=== PATIENT | male | born 1950 | race Caucasian/White ===

== ENCOUNTER 2017-12-19 10:05 | Outpatient (CLI) | payer MEDICARE, MEDICAID, SELFPAY ==
--- NOTE | 2017-12-19 09:45 | DI.RAD_ITS ---
SYMPTOMS/DIAGNOSIS: PAIN IN KNEE, M25.569 RIGHT KNEE: Three views were obtained. There are prominent osteophytes of the superior pole of the patella and the anterior tibial tubercle. Minimal hypertrophic spurring seen involving the patellofemoral joint as well. No other significant bony abnormality is seen.
[2017-12-19 11:16] LABS: HCT 43.1 % (40.0-50.0); HGB 14.5 g/dL (13.5-17.5); Mean Corp. HGB Concentration 33.6 g/dL (32.0-36.0); Mean Corpuscular Volume 95.1 fL (80-95); Mean Platelet Volume 10.2 fL (8.0-11.0); Platelet Count 231 x1000/uL (130-400); RBC 4.53 m/cumm (4.50-6.00); RBC Distribution Width 13.7 % (11.8-14.1); White Blood Cell Count 8.66 k/cumm (4.4-10.8)
[2017-12-19 12:29] LABS: ALT 42 U/L (12-78); AST 24 U/L (15-37); Albumin 4.1 g/dL (3.4-5.0); Alkaline Phosphatase 65 U/L (46-116); Anion Gap 10.3 mmol/L (3-11); BUN 28 mg/dL (7-18); Bilirubin, Total 0.5 mg/dL (0.2-1.0); CO2 26.7 mmol/L (21.0-32.0); CREATININE 1.16 mg/dL (0.70-1.30); Chloride 104 mmol/L (98-107); Glucose 84 mg/dL (70-100); Potassium 4.2 mmol/L (3.5-5.1); Sodium 141 mmol/L (136-145); Total Protein 6.9 g/dL (6.4-8.2); Uric Acid 9.2 mg/dL (3.5-7.2)
[2017-12-19 13:20] LABS: ESR 22 MM/HR (1-20)
== END 2017-12-19 10:25 ==
PROVIDERS: PCP Family Medicine; Visit Provider Internal Medicine
DX: M25.561 Pain in right knee (principal); M25.761 Osteophyte, right knee
CPT/HCPCS: 36415; 73562; 80053; 85027; 85652; 84550

== ENCOUNTER 2017-12-27 17:25 | Emergency (ER) | payer MEDICARE, MEDICAID, SELFPAY ==
[2017-12-27 18:22] VITALS: BP 178/98; PULSE 88; RESP 18; TEMP 36.7; O2SAT 95
--- NOTE | 2017-12-27 18:35 | NUR.NOTE ---
Nursing Note: Patient left without being seen.
== END 2017-12-27 18:37 ==
LOC: ER 18:41
PROVIDERS: PCP Family Medicine
DX: R69 Illness, unspecified (principal)

== ENCOUNTER → 2018-01-09 08:54 | Outpatient (BNVA) | payer MEDICARE, MEDICAID, SELFPAY | PROVIDERS: PCP Family Medicine; Referring Provider Family Medicine; Visit Provider Student in an Organized Health Care Education/Training Program | DX: S83.241A Other tear of medial meniscus, current injury, right knee, initial encounter (principal); X58.XXXA Exposure to other specified factors, initial encounter | CPT/HCPCS: 20610; 99204; 99214; J1040 ==

== ENCOUNTER → 2018-02-20 08:25 | Outpatient (BNVA) | payer MEDICARE, MEDICAID, SELFPAY | PROVIDERS: PCP Family Medicine; Referring Provider Family Medicine; Visit Provider Student in an Organized Health Care Education/Training Program | DX: M23.91 Unspecified internal derangement of right knee | CPT/HCPCS: 99212; 99213 ==

== ENCOUNTER 2018-02-21 09:16 | Outpatient (CLI) | payer MEDICARE, MEDICAID, SELFPAY ==
[2018-02-24 09:45] LABS: Testosterone, Free 4.51 ng/dL (3.47-13.0); Testosterone, Total 167 ng/dL (240-950)
== END 2018-02-21 09:36 ==
PROVIDERS: PCP Family Medicine; Visit Provider Family Medicine
DX: N52.9 Male erectile dysfunction, unspecified (principal)
CPT/HCPCS: 36415; 84402; 84403

== ENCOUNTER 2018-02-23 01:30 | Outpatient (CLI) | payer MEDICARE, MEDICAID, SELFPAY ==
--- NOTE | 2018-02-23 09:42 | DI.MRI_ITS ---
SYMPTOM/DIAGNOSIS: RT KNEE PAIN, ? MENISCUS, INTERNAL DERANGEMENT, M23.91 RIGHT KNEE MRI: Comparison is made with plain films dated 12/19/17. Fat suppressed T 2 axial, proton density and fat suppressed T 2 coronal and sagittal and proton density oblique sagittal sequences were performed. There is a small to moderate sized joint effusion. There is a small amount of fluid around the anterior cruciate ligament but no evidence of disruption. The medial collateral ligament is surrounded by fluid. There is no focal tear visible. The lateral collateral ligaments and extensor mechanism appear intact. There is a large area of high signal in the medial femoral condyle consistent with a bone contusion. There is a small trabecular microfracture seen at the medial femoral condyle at the weight bearing region near the meniscus. There is a large amount of high signal in the medial meniscus. Tears are seen in the posterior horn and body, mainly horizontal and inferior surfacing. There is a linear area of high signal in the anterior horn of the lateral meniscus. The posterior horn and body of the lateral meniscus appear intact. There is cartilage thinning over the femoral condyles as well as minimal irregularity at patellar cartilage. IMPRESSION: Contusion of the medial femoral condyle with small area of trabecular microfracture. Tear of the posterior horn and body of the medial meniscus. Medial meniscal sprain and question of mild ACL sprain.
== END 2018-02-23 01:50 ==
PROVIDERS: PCP Family Medicine; Visit Provider Physician Assistant
DX: M25.561 Pain in right knee (principal); S80.11XA Contusion of right lower leg, initial encounter; S83.241A Other tear of medial meniscus, current injury, right knee, initial encounter
CPT/HCPCS: 73721

== ENCOUNTER → 2018-03-29 07:59 | Outpatient (BNVA) | payer MEDICARE, MEDICAID, SELFPAY | PROVIDERS: PCP Family Medicine; Referring Provider Family Medicine; Visit Provider Student in an Organized Health Care Education/Training Program | DX: S83.241A Other tear of medial meniscus, current injury, right knee, initial encounter (principal); X58.XXXA Exposure to other specified factors, initial encounter | CPT/HCPCS: 99213 ==

== ENCOUNTER 2018-04-06 11:37 | Day surgery (SDC) | payer MEDICARE, MEDICAID, SELFPAY ==
[2018-04-06 12:03] VITALS: BP 134/89; PULSE 78; RESP 18; TEMP 36.1; O2SAT 95
--- NOTE | 2018-04-06 13:28 | HOME_ITS ---
Home Ventilator Equipment Home care company [facility] Reason: Obstructive Sleep Apnea Make: Respironics Model: Dreamstation Mask type: Face mask Mask size: Medium Mode: CPAP Settings: Max/min 20/15 Oxygen bleed in (lpm): 0 Condition: Fair Date last checked: 04/06/18 Year of last sleep study: Compliance Daily Comments:
[2018-04-06] MEDS: Lactated Ringers 1,000 ML 80 ML IV ×2 (13:35→15:18)
[2018-04-06] MEDS: Bupivacaine 0.5% Pres-Free 30 ML VIAL (15:13)
--- NOTE | 2018-04-06 15:22 | W.PM.DSUDISC ---
Discharge Plan Disposition Patient Disposition: HOME Condition: Good Discharge Details Reason For Visit: R knee arthroscopy Attending Provider: Troy Olmos Primary Care Provider: Nigel Emerson Home Meds and New Rx's Prescriptions: New ibuprofen 600 mg tablet 600 mg PO TID PRNQty: 90 RF: 3 acetaminophen 500 mg capsule 1,000 mg PO Q8H PRN (Reason: pain) Qty: 90 RF: 0 oxycodone 5 mg tablet 5 mg PO Q4H Qty: 12 RF: 0 Continued Symbicort 80-4.5 mcg/actuation HFA aerosol inhaler 2 puff Inhalation BID Qty: 120 RF: 11 tamsulosin 0.4 mg capsule 0.4 mg PO HS Qty: 90 RF: 4 C-PAP RF: 0 aspirin 81 MG tablet,chewable 81 mg PO DAILY RF: 0 Inhaler, Assist Devices [Aerochamber Mini] 1 EACH spacer 1 ea Miscellaneous DAILY Qty: 1 RF: 0 fluticasone 16 GM spray,suspension 2 spry NS DAILY Qty: 16 RF: 2 epinephrine [EpiPen 2-Rahul] 0.3 MG/0.3 ML auto-injector 0.3 mg IJ PRN Qty: 1 RF: 0 hydrochlorothiazide 25 MG tablet 50 mg PO DAILY Qty: 90 RF: 3 allopurinol 100 mg Tablet 100 mg PO TID RF: 0 Discontinued naproxen sodium [Aleve] 220 MG capsule 220 mg PO BID RF: 0 tramadol 50 mg tablet 50 mg PO Q8H PRN (Reason: pain) Qty: 42 RF: 0 Discharge Instructions Stand Alone Forms: Sandy MELLO), [facility] Knee Arthrosc[facility] Referrals: Troy Olmos MD [ [facility] STAFF PHYSICIAN] - Equipment/Supplies: Partial Weight Bearing Crutches Activity:: Elevate Remove Dressings/Wound Care:: 72 hours Shower/Bathe:: 72 hours Diet:: As Tolerated Discharge Orders Discharge Orders: Discharge Order (Routine); Ordered 04/06/18 Ordered By: Troy Olmos DS: Diagnosis Discharge Diagnosis (1) Acute medial meniscus tear of right knee: Status: Acute
[2018-04-06 15:32] VITALS: BP 158/85; PULSE 75; RESP 16; TEMP 36.4; O2SAT 96
[2018-04-06 15:37] VITALS: BP 166/89; PULSE 69; RESP 17; TEMP 36.4; O2SAT 96
[2018-04-06 15:42] VITALS: BP 138/86; PULSE 73; RESP 14; TEMP 36.4; O2SAT 95
[2018-04-06] MEDS: fentaNYL 100 MCG/2 ML VIAL IVP ×2 (15:52→15:58)
[2018-04-06 15:55] VITALS: BP 161/93; PULSE 70; RESP 14; TEMP 36.6; O2SAT 94
[2018-04-06] MEDS: oxyCODONE 5 MG TAB PO (16:31)
[2018-04-06 17:00] VITALS: BP 134/89; PULSE 71; RESP 20; TEMP 36.1; O2SAT 91
--- NOTE | 2018-04-07 05:59 | W.PM.OP ---
Date of service: 04/06/18 Time of Service: 16:59 Operative Note DATE OF PROCEDURE: 04/06/18 PRE-OP DIAGNOSIS: Right medial meniscal tear POST-OP DIAGNOSIS: other (Right medial and lateral meniscal tears) PROCEDURE: Right knee arthroscopic partial medial meniscectomy, partial lateral meniscectomy SURGEON: Troy Olmos ANESTHESIA: GETA ESTIMATED BLOOD LOSS: 0 PATHOLOGY: none sent COMPLICATIONS: None Patient was transported to: PACU Patient's condition: stable Indications: I have seen Lester in clinic for symptoms of a meniscus tear. This was confirmed based on MRI and exam findings. Nonoperative measures were exhausted but disability and pain persisted. I discussed knee arthroscopy with meniscal intervention with the patient. I reviewed the risks of the procedure to include, but not limited to, bleeding, infection, pain, stiffness, damage to nerves or vessels, recurrence, blood clot. Despite these risks, the patient elected to proceed. 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 The consent was reviewed with the patient and signed. The history and physical was updated. All questions were answered. Lester was taken back to the operating room. The patient was placed into the supine position on the operating room table. A nonsterile tourniquet was placed high onto the leg but not used. All bony prominences were well padded. Prophylactic antibiotics in the form of cefazolin were administered. The right leg was then prepped with Chloraprep and draped in a standard fashion with stockinette and extremity drape. A timeout to confirm correct identity, side and site, procedure, allergies, anesthesia, and medical concerns was performed. The leg was placed into a pneumatic leg suarez, [email or web address]. A standard lateral portal was made at the lateral border of the patella tendon in line with the inferior pole of the patella, soft spot. The skin and deep tissue was incised sharply and the blunt trochar was inserted atraumatically. A diagnostic arthroscopy was performed and the findings are listed above. The suprapatellar pouch had significant inflammatory changes. There were also deposits seen throughout the knee that had the appearance of a crystal arthropathy. Given his history of gout this is likely gouty deposition, although could be related to intra-articular steroid injection. The patellofemoral articulation showed some grade 2 chondromalacia at the apex as well as good tracking. The lateral gutter had some fibers of the superficial and superior aspect of the meniscus displaced laterally and the medial gutter had no loose bodies. The knee was brought into some valgus stress in extension to open the medial compartment. A medial portal was made, localized by a spinal needle. The portal was created with an #11 blade through skin and capsule under direct visualization avoiding any meniscal injury. A probe was then inserted into the medial compartment. The medial compartment was fully inspected. The chondral surface of the tibia showed a few areas of fissuring but no global chondromalacia and the surface of the femur showed the same. The medial meniscus had a complex tear the posterior horn with a primary radial component as well as a horizontal tear. After evaluation, the meniscus was debrided down to a stable base using a series of biters and arthroscopic yusef. It was probed afterwards to confirm that the tear had been removed and the meniscus was stable. The notch was then inspected which showed an intact ACL and an intact PCL. The leg was then brought into a figure of 4 position. The lateral compartment was fully inspected with the arthroscope and a probe. The chondral surface of the lateral femur showed small area of fissuring but no global arthritic change. The chondral surface of the lateral tibia showed some fissuring but no significant chondromalacia. The lateral meniscus had a complex tear involving the superior fibers of the meniscus in the body. These fibers were frayed and displaced but there is no true horizontal and radial component or detachment from the capsule. After evaluation, the meniscus was debrided down to a stable base using a series of biters and arthroscopic yusef. It was probed afterwards to confirm that the tear had been removed and the meniscus was stable. The arthroscope was brought back into the suprapatellar pouch and the leg was in full extension. The knee was thoroughly irrigated with the arthroscopic fluid on high flow and pressure. Inflow was stopped and excess fluid was removed. The wounds were closed with 4-0 Nylon. They were dressed with Xeroform, 4x4 gauze, ABD pad, Kerlix and an SARAH wrap. A cryo-cuff was applied. The patient tolerated the procedure well and was returned to the Same Day Surgery area in a stable condition suffering no known complication.
== END 2018-04-06 17:10 | disposition home or self-care (01) ==
PROVIDERS: PCP Family Medicine; Visit Provider Student in an Organized Health Care Education/Training Program
PROC: (CPT 29870; principal; 2018-04-06 14:15)
DX: S83.231A Complex tear of medial meniscus, current injury, right knee, initial encounter (principal); S83.271A Complex tear of lateral meniscus, current injury, right knee, initial encounter; M22.41 Chondromalacia patellae, right knee; M11.9 Crystal arthropathy, unspecified; M10.9 Gout, unspecified; X58.XXXA Exposure to other specified factors, initial encounter
CPT/HCPCS: 29880; J0690; J1100; J1885; J2405; J3010

== ENCOUNTER → 2018-04-17 13:15 | Outpatient (BNVA) | payer MEDICARE, MEDICAID, SELFPAY | PROVIDERS: PCP Family Medicine; Referring Provider Family Medicine; Visit Provider Student in an Organized Health Care Education/Training Program | DX: S83.241D Other tear of medial meniscus, current injury, right knee, subsequent encounter (principal); S83.281D Other tear of lateral meniscus, current injury, right knee, subsequent encounter; X58.XXXD Exposure to other specified factors, subsequent encounter ==

== ENCOUNTER → 2018-05-15 09:13 | Outpatient (BNVA) | payer MEDICARE, MEDICAID, SELFPAY | PROVIDERS: PCP Family Medicine; Referring Provider Family Medicine; Visit Provider Student in an Organized Health Care Education/Training Program | DX: S83.281D Other tear of lateral meniscus, current injury, right knee, subsequent encounter (principal); S83.241D Other tear of medial meniscus, current injury, right knee, subsequent encounter; M23.91 Unspecified internal derangement of right knee; X58.XXXD Exposure to other specified factors, subsequent encounter | CPT/HCPCS: 20610; J1040 ==

== ENCOUNTER 2018-06-02 09:25 | Day surgery (SDC) | payer MEDICARE, MEDICAID, SELFPAY ==
[2018-06-02] VITALS (7 sets, daily range): BP systolic 98–145; BP diastolic 51–78; PULSE 65–98; RESP 14–20; TEMP 35.9–36.8; O2SAT 93–95
--- NOTE | 2018-06-02 07:41 | HPE_ITS ---
Date of service: 06/02/18 Time of Service: 10:34 Assessment and Plan (1) Acute medial meniscus tear of right knee: Current visit: No Status: Acute Lester is a 68-year-old 2 months out from right knee arthroscopy with no improvement with the sharp mechanical pain of his right knee. He did have a complex tear of the medial meniscus with multiple components of multiple loose pieces. My concern is that he either re-tore through remnant tear of the medial meniscus or there was tearing not appreciated and inevitably not resected. The ache of his knee has improved with injections and time but the sharp pain re- created by twisting, turning, or walking on uneven grounds, persists. This mechanical nature would suggest the meniscus is still torn and therefore I offered revision knee arthroscopic partial medial meniscectomy. He does not have any lateral based symptoms. I reviewed the risk of the procedure to include persistent pain and symptoms, infection, bleeding, swelling, damage to nerves and vessels, need for repeat procedures, worsening arthritis, blood clot. Despite these risk, he elects to proceed. Qualifiers: Encounter type: initial encounter Qualified Code(s): S83.241A - Other tear of medial meniscus, current injury, right knee, initial encounter History of Present Illness Chief Complaint: Persistent right knee pain Narrative: Lester is a 68-year-old who I have seen for persistent right knee pain. He tried conservative treatment options and then eventually underwent a right knee arthroscopy in March 2018. At the time of arthroscopy he had a significant, complex tear of the medial meniscus with both radial and horizontal components. He also had a very degenerative appearing central lateral meniscal tear. Since the time of the surgery he has had some very mild pain relief but continues have a sensation like something is getting stuck or caught in the knee leading to significant sharp pain over the medial aspect of the knee. This happens when he standing but is exacerbated with any turning or twisting or ambulation on uneven ground or surfaces. He has had a corticosteroid injection which helped decrease some of the ache of the knee but did not alleviate the pain which is sharp. No numbness or tingling no fevers or chills. No range of motion restrictions. Review of Systems Review of Systems All systems reviewed & are unremarkable except as noted in HPI and below PFSH Medical History Screening for colorectal cancer (Chronic) Benign prostatic hyperplasia (Chronic) Disorder of diaphragm (Acute) Essential hypertension (Acute) Gastroesophageal reflux disease (Acute) Hearing loss (Acute) Hyperlipidemia (Acute 07/10/12) Increased body mass index (Acute) Lactose intolerance (Chronic) Malignant melanoma of skin of lower limb (Acute 05/23/13) Obstructive sleep apnea (adult) (pediatric) (Acute) Onychomycosis (Acute) Peyronie's disease (Acute) Low testosterone (Chronic) Hypertension (Chronic) Surgical History Status post arthroscopy of right knee (Chronic) H/O shoulder surgery (Chronic) Hx of meniscectomy of right knee (Acute ~04/06/18) History of hernia repair (Chronic) COLONOSCOPY W/MAC (01/24/15) Colonoscopy - MAC (04/15/04) EGD - MAC (04/15/04) Rotator Cuff Repair (~2005) Family History Mother Arthritis Father Alzheimer disease Sister No problems noted. Sister No problems noted. Brother No problems noted. Brother No problems noted. Grandfather No problems noted. Grandfather No problems noted. Grandmother No problems noted. Grandmother No problems noted. Son No problems noted. Daughter Epilepsy Social History Smoking/Tobacco Use Status: Former Tobacco Use Drug use: Never Do you feel safe in your relationship?: Yes Meds Home Medications Medication Instructions Recorded Confirmed Type C-Pap 07/31/12 05/24/18 History aspirin 81 mg PO DAILY tab-cap 01/20/16 06/01/18 History Inhaler, Assist Devices #1 unit 02/02/17 05/24/18 Clinic [Aerochamber Mini] fluticasone propionate 2 spry NS DAILY #16 gm 03/16/17 05/24/18 Rx epinephrine [EpiPen 2-Rahul] 0.3 mg IJ PRN #1 ml 08/24/17 06/01/18 Rx budesonide-formoterol HFA 80 2 puff INHALATION BID #120 inh 02/21/18 06/01/18 Rx mcg-4.5 mcg/actuation aerosol inhaler acetaminophen 1,000 mg PO Q8H PRN #90 cap 04/06/18 05/24/18 Rx allopurinol 100 mg PO TID 04/06/18 06/01/18 History ibuprofen 600 mg PO TID PRN #90 tab 04/06/18 06/01/18 Rx tramadol 50 mg tablet 50 mg PO Q6H PRN #14 tab 04/17/18 06/01/18 Rx hydrochlorothiazide 25 mg tablet 50 mg PO DAILY #180 tab-cap 05/08/18 06/01/18 Rx syringe with needle 3 mL 22 gauge #6 each 05/24/18 05/24/18 Rx x 1 tamsulosin 0.4 mg capsule 0.8 mg PO HS #180 tab-cap 05/24/18 06/02/18 Rx testosterone cypionate 200 mg/mL 100 mg IM Q2W #1 ml 05/25/18 06/02/18 Rx intramuscular oil naproxen sodium [Aleve] 220 mg PO BID 06/01/18 06/02/18 History Allergies Allergy/AdvReac Type Severity Reaction Status Date / Time SARAH Inhibitors Allergy Unknown Unverified 06/02/18 09:57 amlodipine AdvReac Swelling/Ed Unverified 06/02/18 09:57 robles ezetimibe AdvReac myalgias Unverified 06/02/18 09:57 hydrocodone AdvReac Hallucinati Unverified 06/02/18 09:57 ons lisinopril AdvReac cough Unverified 06/02/18 09:57 losartan AdvReac fatigue Unverified 06/02/18 09:57 oxycodone AdvReac Depression Unverified 06/02/18 09:57 clams SOB ER Allergy Severe SOB ER Uncoded 06/02/18 09:57 red yeast rice AdvReac Intermediate Uncoded 06/02/18 09:57 Exam Const General: cooperative, healthy appearing, comfortable and no acute distress Nutritional Appearance: obese Orientation: alert, awake and oriented x3 Resp Effort & Inspection: normal respiratory effort Auscultation: clear to auscultation bilaterally Cardio Rate: regular rate Rhythm: regular rhythm Extrem Other: Well-healed arthroscopy portal seen on the right knee. The right knee shows no sign of significant effusion. No erythema. Range of motion is from 5- 110 degrees. Force of the knee deeper into flexion causes medial base pain. Significant pain with Teo and Apley maneuvers. Pain along the medial joint line.
[2018-06-02] MEDS: Lactated Ringers 1,000 ML 80 ML IV (10:10)
[2018-06-02] MEDS: Bupivacaine 0.5% Pres-Free 30 ML VIAL (10:54)
--- NOTE | 2018-06-02 11:23 | PDOC.DSDIS_ITS ---
Discharge Plan Disposition Patient Disposition: HOME Condition: Good Discharge Details Reason For Visit: (R) KNEE MMT Attending Provider: Troy Olmos Primary Care Provider: Nigel Emerson Home Meds and New Rx's Prescriptions: New tramadol 50 mg tablet 50 mg PO Q4H PRN (Reason: pain) Qty: 18 RF: 0 acetaminophen 500 mg tablet 1,000 mg PO Q8H PRN (Reason: pain) Qty: 90 RF: 3 Continued Symbicort 80-4.5 mcg/actuation HFA aerosol inhaler 2 puff Inhalation BID Qty: 120 RF: 11 tamsulosin 0.4 mg capsule 0.8 mg PO HS Qty: 180 RF: 4 syringe with needle 3 mL 22 gauge x 1 syringe .ROUTE .MEDSUPPLY Qty: 6 RF: 3 C-PAP RF: 0 aspirin 81 MG tablet,chewable 81 mg PO DAILY RF: 0 Inhaler, Assist Devices [Aerochamber Mini] 1 EACH spacer 1 ea Miscellaneous DAILY Qty: 1 RF: 0 fluticasone propionate 16 GM spray,suspension 2 spry NS DAILY Qty: 16 RF: 2 epinephrine [EpiPen 2-Rahul] 0.3 MG/0.3 ML auto-injector 0.3 mg IJ PRN Qty: 1 RF: 0 hydrochlorothiazide 25 mg tablet 50 mg PO DAILY Qty: 180 RF: 3 testosterone cypionate [Depo-Testosterone] 200 mg/mL oil 100 mg IM Q2W Qty: 1 RF: 5 allopurinol 100 mg Tablet 100 mg PO TID RF: 0 ibuprofen 600 mg tablet 600 mg PO TID PRNQty: 90 RF: 3 Changed tramadol 50 mg tablet 50 mg PO Q4H PRN PRN (Reason: pain) Qty: 18 RF: 0 Discontinued acetaminophen 500 mg capsule 1,000 mg PO Q8H PRN (Reason: pain) Qty: 90 RF: 0 naproxen sodium [Aleve] 220 mg Capsule 220 mg PO BID RF: 0 No Action indomethacin 50 mg Capsule 50 mg PO PRN PRNRF: 0 Discharge Instructions Stand Alone Forms: [facility] Knee Arthroscopy, Sandy Choudhury (DSU) Referrals: Troy Olmos MD [ [facility] STAFF PHYSICIAN] - Equipment/Supplies: Partial Weight Bearing Crutches Activity:: Activity as Tolerated Remove Dressings/Wound Care:: 72 hours Shower/Bathe:: 72 hours Diet:: As Tolerated Discharge Orders Discharge Orders: Discharge Order (Routine); Ordered 06/02/18 Ordered By: Troy Olmos DS: Diagnosis Discharge Diagnosis (1) Acute medial meniscus tear of right knee: Status: Acute
[2018-06-02] MEDS: fentaNYL 100 MCG/2 ML VIAL IVP ×2 (11:49→12:05)
[2018-06-02] MEDS: oxyCODONE 5 MG TAB PO (12:52)
--- NOTE | 2018-06-02 14:52 | W.PM.OP ---
Date of service: 06/02/18 Time of Service: 14:52 Operative Note DATE OF PROCEDURE: 06/02/18 PRE-OP DIAGNOSIS: Right knee medial meniscal tear POST-OP DIAGNOSIS: same PROCEDURE: Arthroscopic right knee partial medial meniscectomy SURGEON: Troy Olmos ANESTHESIA: GETA ESTIMATED BLOOD LOSS: 0 PATHOLOGY: none sent COMPLICATIONS: None Patient was transported to: PACU Patient's condition: stable Indications: I have seen Lester in clinic for symptoms of a meniscus tear. This was confirmed based on MRI and exam findings. He had initial meniscal surgery where a complex tear of the medial meniscus was discovered and treated. However, a few weeks after the initial surgery he developed exquisite medial sided pain with any turning, twisting, or uneven ground. Nonoperative measures were exhausted but disability and pain persisted. I discussed knee arthroscopy with revision meniscal intervention with the patient. I reviewed the risks of the procedure to include, but not limited to, bleeding, infection, pain, stiffness, damage to nerves or vessels, recurrence, blood clot. Despite these risks, the patient elected to proceed. 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 The consent was reviewed with the patient and signed. The history and physical was updated. All questions were answered. He was taken back to the operating room. The patient was placed into the supine position on the operating room table. A nonsterile tourniquet was placed high onto the leg but not used. All bony prominences were well padded. Prophylactic antibiotics in the form of cefazolin were administered. The right leg was then prepped with Chloraprep and draped in a standard fashion with stockinette and extremity drape. A timeout to confirm correct identity, side and site, procedure, allergies, anesthesia, and medical concerns was performed. The leg was placed into a pneumatic leg suarez, [email or web address]. A standard lateral portal was made at the lateral border of the patella tendon in line with the inferior pole of the patella, soft spot. The skin and deep tissue was incised sharply and the blunt trochar was inserted atraumatically. A diagnostic arthroscopy was performed and the findings are listed above. The suprapatellar pouch had mild inflammatory changes with a single cartilage loose body about 4 x 6 mm. The patellofemoral articulation showed grade I/II chondromalacia of the patella as well as good tracking. The lateral gutter had no loose bodies and the medial gutter had no loose bodies. The knee was brought into some valgus stress in extension to open the medial compartment. A medial portal was made, localized by a spinal needle. The portal was created with an #11 blade through skin and capsule under direct visualization avoiding any meniscal injury. A probe was then inserted into the medial compartment. The medial compartment was fully inspected. The chondral surface of the tibia showed some fissuring with focal grade II chondromalacia and the surface of the femur showed focal grade IV chondromalacia with exposed bone, approximately 6 x 8 mm. The medial meniscus had post meniscectomy changes with a large portion of meniscus absent where the previous radial and oblique tear was resected. The medial meniscus was probed and there was some residual horizontal tearing appreciated from the site of the oblique tear towards the root but not involving the root. After evaluation, the meniscus was debrided down to a stable base using a series of biters and arthroscopic yusef. It was probed afterwards to confirm that the tear had been removed and the meniscus was stable. Cartilage surfaces were debrided of any flaps, leaving any intact fibers. The notch was then inspected which showed an intact ACL and an intact PCL. The leg was then brought into a figure of 4 position. The lateral compartment was fully inspected with the arthroscope and a probe. The chondral surface of the lateral femur showed some mild fissuring but no significant chondromalacia. The chondral surface of the lateral tibia showed no significant chondromalacia. The lateral meniscus had no meniscal tear. The arthroscope was brought back into the suprapatellar pouch and the leg was in full extension. The knee was thoroughly irrigated with the arthroscopic fluid on high flow and pressure. Inflow was stopped and excess fluid was removed. The wounds were closed with 4-0 Nylon. They were dressed with Xeroform, 4x4 gauze, ABD pad, Kerlix and an SARAH wrap. A cryo-cuff was applied. The patient tolerated the procedure well and was returned to the Same Day Surgery area in a stable condition suffering no known complication.
== END 2018-06-02 13:32 | disposition home or self-care (01) ==
PROVIDERS: PCP Family Medicine; Visit Provider Student in an Organized Health Care Education/Training Program
PROC: (CPT 29870; principal; 2018-06-02 10:45)
DX: S83.241A Other tear of medial meniscus, current injury, right knee, initial encounter (principal); M23.41 Loose body in knee, right knee; M94.261 Chondromalacia, right knee; I10 Essential (primary) hypertension; K21.9 Gastro-esophageal reflux disease without esophagitis; X58.XXXA Exposure to other specified factors, initial encounter
CPT/HCPCS: 29881; NC; J0690; J1885; J2405; J3010

== ENCOUNTER → 2018-06-14 09:14 | Outpatient (BNVA) | payer MEDICARE, SELFPAY | PROVIDERS: PCP Family Medicine; Referring Provider Family Medicine; Visit Provider Student in an Organized Health Care Education/Training Program | DX: Z47.89 Encounter for other orthopedic aftercare (principal); M17.11 Unilateral primary osteoarthritis, right knee ==

== ENCOUNTER → 2018-07-12 09:15 | Outpatient (BNVA) | payer MEDICARE, SELFPAY | PROVIDERS: PCP Family Medicine; Referring Provider Family Medicine; Visit Provider Student in an Organized Health Care Education/Training Program | DX: Z47.89 Encounter for other orthopedic aftercare (principal); M25.561 Pain in right knee ==

== ENCOUNTER 2018-08-29 10:01 | Outpatient (CLI) | payer MEDICARE, SELFPAY ==
[2018-08-29 13:16] LABS: Calculated LDL 134; Cholesterol 190 mg/dL (50-200); HDL Cholesterol 17 mg/dL (40-60); Triglyceride 198 mg/dL (30-150)
[2018-09-01 09:10] LABS: Testosterone, Free 9.04 ng/dL (3.47-13.0); Testosterone, Total 323 ng/dL (240-950)
== END 2018-08-29 10:21 ==
PROVIDERS: PCP Family Medicine; Visit Provider Family Medicine
DX: R79.89 Other specified abnormal findings of blood chemistry (principal); I10 Essential (primary) hypertension; N52.9 Male erectile dysfunction, unspecified
CPT/HCPCS: 36415; 80061; 83721; 84402; 84403

== ENCOUNTER → 2018-09-18 10:41 | Outpatient (BNVA) | payer MEDICARE, MEDICAID, SELFPAY | PROVIDERS: PCP Family Medicine; Referring Provider Family Medicine; Visit Provider Student in an Organized Health Care Education/Training Program | DX: M17.11 Unilateral primary osteoarthritis, right knee (principal); M25.561 Pain in right knee; Z47.89 Encounter for other orthopedic aftercare; I10 Essential (primary) hypertension | CPT/HCPCS: 20610; 99213; J7325 ==

== ENCOUNTER → 2019-02-08 12:42 | Outpatient (BNVA) | payer MEDICARE, MEDICAID, SELFPAY | PROVIDERS: PCP Family Medicine; Referring Provider Family Medicine; Visit Provider Student in an Organized Health Care Education/Training Program | DX: M17.11 Unilateral primary osteoarthritis, right knee (principal); I10 Essential (primary) hypertension | CPT/HCPCS: 99213 ==

== ENCOUNTER 2019-02-20 14:04 | Outpatient (CLI) | payer MEDICARE, MEDICAID, SELFPAY ==
[2019-02-20 15:23] LABS: HCT 49.5 % (40.0-50.0); HGB 16.6 g/dL (13.5-17.5); Mean Corp. HGB Concentration 33.5 g/dL (32.0-36.0); Mean Corpuscular Hemoglobin 30.9 pg (27.0-33.0); Mean Platelet Volume 9.7 fL (8.0-11.0); RBC 5.38 m/cumm (4.50-6.00); RBC Distribution Width 14.1 % (11.8-14.1); White Blood Cell Count 8.07 k/cumm (4.4-10.8)
[2019-02-20 16:37] LABS: CREATININE 1.31 mg/dL (0.70-1.30); Calcium 8.7 mg/dL (8.5-10.1); Estimated GFR 54.74 (mL/min/1.73m2); Potassium 3.9 mmol/L (3.5-5.1)
== END 2019-02-20 14:24 ==
PROVIDERS: PCP Family Medicine; Visit Provider Student in an Organized Health Care Education/Training Program
DX: M25.561 Pain in right knee (principal); M17.11 Unilateral primary osteoarthritis, right knee; Z01.818 Encounter for other preprocedural examination; Z01.812 Encounter for preprocedural laboratory examination
CPT/HCPCS: 36415; 80048; 85027

== ENCOUNTER 2019-02-27 09:03 | Inpatient (IN) | payer MEDICARE, MEDICAID, SELFPAY ==
[2019-02-27] VITALS (14 sets, daily range): BP systolic 145–201; BP diastolic 64–94; PULSE 74–90; RESP 14–26; TEMP 36.7–37.3; O2SAT 93–95
--- NOTE | 2019-02-27 10:14 | HOME_ITS ---
Home Ventilator Equipment Home care company [facility] Reason: Obstructive Sleep Apnea Make: ResMed Model: Dreamstation Mask type: Nasal pillows Mask size: Medium Mode: CPAP Settings: MIN 16.5/ MAX 21 Oxygen bleed in (lpm): 0 Condition: Good Date last checked: 02/27/19 Year of last sleep study: Compliance Daily Comments: DOES NOT USE WATER.
[2019-02-27] MEDS: Celecoxib 200 MG CAP 400 MG PO (10:16)
[2019-02-27] MEDS: Acetaminophen 500 MG TAB 1000 MG PO ×2 (10:16→19:53)
[2019-02-27] MEDS: Gabapentin 300 MG CAP PO ×2 (10:16→21:05)
[2019-02-27] MEDS: Lactated Ringers 1,000 ML 80 ML IV ×2 (10:25→15:37)
[2019-02-27] MEDS: Bupivacaine 0.5% Pres-Free 30 ML VIAL (11:17)
[2019-02-27] MEDS: ceFAZolin 3,000 MG in Normal Saline 100 ML 200 MG IVPB (11:42)
[2019-02-27] MEDS: Bupivacaine 0.25% Pres-Free 30 ML VIAL (12:57)
[2019-02-27] MEDS: Ketorolac 30 MG/ML VIAL (12:57)
[2019-02-27] MEDS: Normal Saline 50 ML 40 ML (12:57)
[2019-02-27] MEDS: Lidocaine 2% Jelly 6 ML SYR (14:25)
[2019-02-27] MEDS: Normal Saline Flush 10 ML SYR IV (14:48)
[2019-02-27] MEDS: Labetalol 100 MG/20 ML VIAL 10 MG IVP (14:50)
--- NOTE | 2019-02-27 16:24 | W.PM.OP ---
Date of service: 02/27/19 Time of Service: 14:11 Operative Note Operative Note DATE OF PROCEDURE: 02/27/19 PRE-OP DIAGNOSIS: Right knee osteoarthritis POST-OP DIAGNOSIS: same PROCEDURE: Right Total Knee Arthroplasty with Intraoperative Navigation SURGEON: Troy Olmos MAILROOM COORDINATOR: Jessica Quinn ANESTHESIA: regional and spinal ESTIMATED BLOOD LOSS: 400 PATHOLOGY: none sent TOURNIQUET TIME: 34 COMPLICATIONS: None Patient was transported to: PACU Patient's condition: stable Implants: 1. Depuy Attune Posterior Stabilized Femoral Component, Size 8 2. Depuy Attune Fixed Platform Tibial Component, Size 7 3. Depuy Attune 8 x 6 mm fixed, Stabilized Poly 4. Depuy Attune Patellar Component, Size 38 mm Indications: I have seen Lester in clinic for symptoms of knee arthritis, confirmed with radiographic and arthroscopic findings. Lester has exhausted nonoperative methods and was having significant limitations in daily function and desired better function and less pain. I discussed the technical details of a knee replacement. I explained the risks of the procedure to include, but not limited to, bleeding, infection, pain, stiffness, fracture, damage to nerves and vessels, damage to muscles and tendons, loosening, need for repeat procedure, blood clot and cardiopulmonary demise. Despite these risks, he elected to proceed. Findings: There was significant signs of arthritis throughout the knee. 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 There was complete loss of cartilage over the medial distal femur and the medial posterior tibia. A cyst approximately 1 cm diameter was encountered over the distal, medial femur. Procedure Description: Lester was greeted in the preoperative holding area where the correct side was identified and marked. The consent was reviewed with the patient and signed. The history and physical was updated. All questions were answered. Preoperative mediacations were administered: Acetaminophen 1000mg, Celebrex 400mg, Gabapentin 300mg. An adductor canal block was then administered by the anesthesia team in the PACU. Lester was taken back to the operating room. A spinal anesthestic was then administered. The patient was placed into the supine position on the operating room table. A nonsterile tourniquet was placed high onto the leg but only used for cementing. Posts were placed for positioning during the procedure. All bony prominences were well padded. Prophylactic antibiotics in the form of cefazolin were administered. 1g of Tranxemic Acid was given intravenously within 30 minutes of incision. The right leg was then prepped with Chloraprep and draped in a standard fashion with impervious stockinette and extremity drape. A second prep with ChloraPrep was performed prior to placement of the Iodine impregnated skin protection. A timeout to confirm correct identity, side and site, procedure, allergies, anesthesia, and medical concerns was performed. With the knee in some flexion, a midline incision was made overlying the knee. Full thickness skin flaps were raised once the extensor mechanism was encountered. These were raised medially and laterally. Any bleeding was controlled with electrocautery. Once the extensor mechanism was fully exposed, a medial parapatellar arthrotomy was performed in a flexed position. All bleeding from the arthrotomy and the geniculate arteries was coagulated. A medial subperiosteal peel was performed with electrocautery to the midcoronal plane. Due to the varus deformity the entire medial tibial plateau was exposed. The fat pad was removed while keeping the patellar tendon protected. The anterior distal femur synovium was removed for later visualization. The ACL and PCL were resected and the anterior horn of the lateral meniscus was transected. The knee was then flexed with the patella translated laterally. A single starting pin was then placed 1cm anterior to the PCL insertion and the notch in the direction of the femoral head. The OrthoAlign device was applied over the pin. It was oriented to be in line with the epicondylar axis and the trochlear groove. It was then pinned into place. The navigation computer was then turned on and calibrated. The distal femur cut was set at 0 degrees varus/valgus and 2.5 degrees flexion. The distal femur cutting guide then was positioned for a 9mm cut. The distal femur was cut with an oscillating saw while protecting the soft tissues. The tibia was then addressed. The OrthoAlign device was placed over the tibial tubercle and medial tibia and secured into position. Once again, OrthoAlign was calibrated and then set for a 0 degree varus/valgus cut and 3 degrees of posterior slope. With this locked into position, the cut thickness stylus was used to assess cut thickness. The medial side, most involved side, was set for a 4mm cut. This was then held in position and pinned into place with 2 additional pins and a cross pin for stability. The medial and lateral collateral ligaments were protected and the cut was performed. With this completed, it was assessed and noted to be of appropriate dimensions. The guide and OrthoAlign was removed. A spacer block was inserted and the knee was brought into extension. The 6mm spacer block provided full extension, without hyperextension and with stability of both the medial and lateral collateral ligaments was assessed. The pins from the femur and the tibia were then removed. The distal femur was then sized. The anterior stylus was placed onto the lateral ridge of the anterior femur. This indicated a size 8 femur. The external rotation of the guide was adjusted to 3 degrees to match the epicondylar axis, perpendicular to Roseann?s line. The 4-in-1 cutting guide was the placed. The posterior medial femur cut was evaluated and appeared of good thickness. The spacer block was inserted underneath the cutting guide and stability was confirmed in 90 degrees of flexion. An sammy wing was used to confirm appropriate position of the anterior cut to avoid notching. This cutting guide was ensured to be flush on the cut surface and then pinned into place with headed pins. While protecting the soft tissues, quad tendon, and collateral ligaments, the anterior and posterior cuts were performed with a saw. The central two pins were removed and the posterior and anterior chamfers were cut next. The notch-cutting guide was placed. This was pinned to lateralize the femoral component as much as possible while keeping it flush on the cut surface. This was then pinned into position. A reciprocating saw was used to make the notch cut. A rasp smoothed the cut surfaces. A trial posterior stabilized femoral component was then inserted, impacted down to the cut surfaces, and the lug holes were drilled. A provisional trial tibial component was placed and the knee was brought through range of motion. There was noted to be excellent extension and flexion. There was no significant instability. The patella was tracking without thumbs. The tibial cut surface was fully exposed. The medial and lateral menisci were removed. The tibia was then sized as a 7. The tibia had been previously marked during trialing to correspond to the center of the tibial component to help with rotation. The trial was aligned to this francine, approximately rotated to the medial 1/3rd of the tibial tubercle. The trial was pinned into place. The tibia was prepared with a reamer and a keel punch. The knee was then brought into extension and the patella was measured as 35 mm. Using the patellar clamp and cut guide, this was resected to a flat surface with at least 13mm of thickness remaining. The size 38 patella fit the best. This was oriented and then clamped into position. The lugs were drilled. The trial components were removed. The final components, except for the polyethylene were opened on the back table. The periosteal and capsular tissues, especially posteriorly, around the knee were then systematically injected with a periarticular cocktail consisting of 50cc 0.25% Marcaine, 30mg Ketorolac, 20cc of Exparal and 50cc of injectable saline. The tourniquet was then inflated to 275mmHg. The knee was thoroughly irrigated with a pulse lavage and dried. On the back table, with the implants opened, the cement was mixed. 2 batches of antibiotic laden cement were prepared with vacuum assistance. After the cement was ready a small amount was placed on to the back side of the tibial component at the keel. A small amount was placed onto the posterior flange of the femur. Cement was manual pressurized and impregnated into the cut surface of the tibia. The tibial component was then inserted into the cut surface and impacted into position. Excess cement was removed and the component was reimpacted. Again, excess cement was removed and our attention was then turned to the femur. The femoral cut surface was once again dried and cement was manually impacted into the cut surface. The femoral component was lined with the lug holes and impacted. Excess cement was removed. It was ensured to be down against the cut surface. The trial polyethylene was then inserted and the leg was brought out into full extension for the duration of the cement curing process, approximately 15min. Cement was lastly manually impacted into the cut surface of the patella and the patellar button was clamped into position and held. During this process attention was turned to the gutters of the knee and for all interfaces for any excess cement. The knee was irrigated with Irrisept chlorhexidine solution and allowed to sit for a minimum of 3 minutes. After the cement had finally cured, approximately 15min, the clamp was removed from the patella and the knee was taken through range of motion. A size 6mm polyethylene component provided the best range of motion and stability with less than 2mm gapping with medial and lateral stress and full extension without significant hyperextension. The patella was tracking with a no-thumbs technique. The trial poly was removed and once again the knee was checked for any loose, excess, or errant cement. The poly component was then inserted and impacted into position after cleaning and drying the tibial tray. The capsule was then reapproximated with a No. 1 Vicryl at multiple locations. The capsule was finally closed with a No. 2 Stratafix, barbed suture. The tourniquet was then released and the arthrotomy appeared watertight without significant bleeding. The second dosing of 1g TXA was started. Deep tissues were then reapproximated with 0 Vicryl and 2-0 Vicryl. The skin was closed with a running 3-0 Monocryl in a subcuticular fashion. This was reinforced with skin glue. A Mepilex silver dressing was applied along with a [id number] SARAH wrap. A CryoCuff was applied. Lester was transferred to the hospital bed without difficulty an suffering no apparent complication. Lester has a good prognosis. Physical therapy will start today and without restrictions, weight-bearing as tolerated. Aspirin 81mg BID will be used for DVT prophylaxis.
[2019-02-27] MEDS: ceFAZolin 1 GM/50 ML BAG IVPB (18:10)
--- NOTE | 2019-02-27 19:49 | W.PM.DS.N ---
Documented by User: Troy Olmos MD 03/12/19 06:26 DS: Diagnosis Discharge Diagnosis (1) Right knee DJD: Status: Chronic Discharge Plan Disposition Patient Disposition: HOME Condition: Good Discharge Details Reason For Visit: (R) DJD KNEE Admit Date/Time: 02/27/19 09:03 Admit Provider: Troy Olmos Attending Provider: Troy Olmos Primary Care Provider: Nigel Emerson Hospital Course Hospital Course: Patient was admitted to the medical/surgical floor following the procedure. It was tolerated well without any notable medical, surgical, or anesthetic complications. Mobilization began postoperatively. The richey catheter was removed; patient is yet to void but denies any urinary discomfort, fevers or chills. Vitals were stable. Physical therapy worked with the patient and was cleared for discharge home at time of this note. No acute medical issues. Patient is doing well the morning following surgery and has been ambulating with physical therapy. Home Meds and New Rx's Prescriptions: New acetaminophen 500 mg tablet 1,000 mg PO Q8H PRN (Reason: pain) Qty: 90 RF: 3 celecoxib 200 mg capsule 200 mg PO BID PRN (Reason: pain) Qty: 60 RF: 1 pantoprazole 40 mg tablet,delayed release (DR/EC) 40 mg PO DAILY Qty: 30 RF: 0 gabapentin 300 mg capsule 300 mg PO QHS Qty: 7 RF: 0 aspirin 81 mg tablet,delayed release (DR/EC) 81 mg PO BID Qty: 60 RF: 0 Continued tamsulosin 0.4 mg capsule 0.8 mg PO HS Qty: 180 RF: 4 C-PAP RF: 0 epinephrine [EpiPen 2-Rahul] 0.3 MG/0.3 ML auto-injector 0.3 mg IJ PRN Qty: 1 RF: 0 hydrochlorothiazide 25 mg tablet 50 mg PO DAILY Qty: 180 RF: 3 testosterone cypionate [Depo-Testosterone] 200 mg/mL oil 150 mg IM Q2W Qty: 2 RF: 5 fluticasone propion-salmeterol [Advair Diskus] 100-50 mcg/dose blister with device 1 puff IH BID Qty: 60 RF: 11 allopurinol 100 mg tablet 100 mg PO TID RF: 0 indomethacin 50 mg Capsule 50 mg PO PRN PRNRF: 0 Discontinued tramadol 50 mg tablet 50 mg PO Q4H PRN (Reason: pain) Qty: 15 RF: 0 aspirin 81 MG tablet,chewable 81 mg PO DAILY RF: 0 acetaminophen 500 mg tablet 1,000 mg PO Q8H PRN (Reason: pain) Qty: 90 RF: 3 naproxen sodium [Aleve] 220 mg Capsule 440 mg PO BID RF: 0 No Action (DME) Inhaler, Assist Devices [Aerochamber Mini] 1 EACH spacer 1 ea Miscellaneous DAILY Qty: 1 RF: 0 (DME) syringe with needle 3 mL 22 gauge x 1 syringe See Dose Instructions .ROUTE .MEDSUPPLY Qty: 6 RF: 3 hydromorphone 2 mg tablet 2 mg PO Q6H MDD 8mg PRN (Reason: pain) Qty: 16 RF: 0 Discharge Instructions Additional Instructions: Dr. Olmos?s Total Knee Discharge Instructions Activity: The most important activity is to walk. You should try to take short walks a few times a day. It is important that when resting you work on keeping the knee straight. Avoid putting a pillow behind the knee as this will encourage flexion. Work on range of motion exercises as provided by Physical Therapy. - Start outpatient physical therapy within 2 weeks. - You should wear the PEGGY hose on both legs for 2 weeks. Dressing: Keep the surgical dressing in place for at least one week. After the first week it may be removed and replace with light gauze and tape or nothing. It may get wet after 3 days but avoid soaking the dressing. If it gets wet, just lightly pat dry. Medications: - You should take Tylenol and anti-inflammatory Celebrex as your primary pain control medications - You have been prescribed a stronger pain medication Hydromorphone for breakthrough pain, take as needed as prescribed. - You have also been prescribed a stomach acid reduction agent Pantoprozole to help reduce stomach acid and reflux. - You will be taking Aspirin 81mg twice a day for DVT prevention unless instructed otherwise. - If you have constipation you should take Colace or Miralax (both [id number]). It takes most people 3-4 days to have a bowel movement. Follow-up: 2 weeks Stand Alone Forms: Nursing Discharge Form Referrals: Troy Olmos MD [ [facility] STAFF PHYSICIAN] - 12/23/19 3:30 pm Activity:: Activity as Tolerated Equipment/Supplies:: Walker Diet:: As Tolerated Discharge Orders Discharge Orders: Discharge Order (Routine); Ordered 02/28/19 Ordered By: Jessica Quinn Discharge Data Discharge Date/Time-TO BE ENTERED AT DEPARTURE: 02/28/19 11:09 DS: Data Vitals/I&O Vitals and I&O: Vital Signs Temperature 37.2 C 02/27/19 16:20 Temperature Source Skin 02/27/19 16:20 Pulse 84 02/27/19 16:20 Pulse Rhythm Regular 02/27/19 16:19 Respiratory Rate 18 02/27/19 16:20 Respiratory Effort Non-Labored 02/27/19 16:19 Respiratory Depth Normal 02/27/19 16:19 Respiratory Pattern Normal 02/27/19 16:19 Blood Pressure 145/79 H 02/27/19 16:20 Pulse Oximetry 93 L 02/27/19 16:20 Respiratory End-tidal CO2 39 02/27/19 15:53 Oxygen Delivery Method Room Air 02/27/19 16:20 Oxygen Flow Rate 0 02/27/19 16:20 Pain Level 0 02/27/19 16:20 Intake & Output 02/26/19 02/27/19 02/27/19 23:59 11:59 23:59 Intake Total 1840 / 1840 Output Total 705 / 705 Balance 1135 / 1135 Weight 133.6 kg Intake: IV 1120 / 1120 Oral 720 / 720 Output: Urine 305 / 305 Estimated Blood Loss 400 / 400 Other: Urine Color Chaves Urine Appearance Hematuria Comment pt kimber well thus far Emesis Description None PFSH Medical History Benign prostatic hyperplasia (Chronic) 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 Essential hypertension (Acute) cough on SARAH-I Gastroesophageal reflux disease (Acute) small hiatal hernia EGD 03/2004 Gout (Chronic) Hearing loss (Acute) bilateral Hyperlipidemia (Acute 07/10/12) intolerant to statins and Zetia Hypertension (Chronic) Increased body mass index (Acute) Lactose intolerance (Chronic) possible Low testosterone (Chronic) Malignant melanoma of skin of lower limb (Acute 05/23/13) [facility] [place]; LEFT LEG; T3ANO STAGE 2A Obstructive sleep apnea (adult) (pediatric) (Acute) SEVERE with good response to CPAP Onychomycosis (Acute) Peripheral edema (Acute) likely dependency due to morbid obesity Peyronie's disease (Acute) Screening for colorectal cancer (Chronic) Surgical History Colonoscopy - MAC (04/15/04) Rare tics, no polyps;Small HH & fundic gland polyp COLONOSCOPY W/MAC (01/24/15) DR. ULICES EVANS EGD - MAC (04/15/04) H/O shoulder surgery (Chronic) bilateral History of hernia repair (Chronic) Rotator Cuff Repair (~2005) left and right Status post arthroscopy of right knee (Chronic) Partial medial and lateral meniscectomies DOS: 04/06/18 Repeat surgery: 06/02/2018 Family History Mother Arthritis Father Alzheimer disease Sister No problems noted. Sister No problems noted. Brother No problems noted. Brother No problems noted. Maternal Grandfather No problems noted. Paternal Grandfather No problems noted. Maternal Grandmother No problems noted. Paternal Grandmother No problems noted. Son No problems noted. Daughter Epilepsy Social History Smoking/Tobacco Use Status: Former Tobacco Use Second Hand Exposure: No Alcohol Intake: current Alcohol Intake frequency: a few times a week Alcohol type: beer Drug use: Never Substance use type: does not use Caregiver/Support person: No Household members: spouse Housing: house Communication Needs: Hard of Hearing Do you need help understanding health information?: Rarely Pets and animals: No Sexually active: Yes Do you think of yourself as: straight/heterosexual Current gender identity: male What is your relationship status?: How often do you talk on the phone with friends or family?: three or more times per week How often do you get together with friends or relatives?: once per week How often do you attend taoism or scientology services?: decline to answer Do you belong to any clubs or organized social groups?: decline to answer Panel score (0-1 are the most socially isolated patients): 2 What type of physical activity do you participate in: decline to answer Duration: decline to answer Frequency: decline to answer Mariely/Temple: None Special mariely needs: No Seatbelt use: sometimes Helmet use: No Drive intox or ride w/intox bottom hoop driver: No Do you feel safe in your relationship?: Yes Documented by User: Jessica Johnsonxon 02/28/19 08:59 Discharge Plan Disposition Patient Disposition: HOME Condition: Good Discharge Details Reason For Visit: (R) DJD KNEE Admit Date/Time: 02/27/19 09:03 Admit Provider: Troy Olmos Attending Provider: Troy Olmos Primary Care Provider: Nigel Emerson Hospital Course Hospital Course: Patient was admitted to the medical/surgical floor following the procedure. It was tolerated well without any notable medical, surgical, or anesthetic complications. Mobilization began postoperatively. The richey catheter was removed; patient is yet to void but denies any urinary discomfort, fevers or chills. Vitals were stable. Physical therapy worked with the patient and was cleared for discharge home at time of this note. No acute medical issues. Patient is doing well the morning following surgery and has been ambulating with physical therapy. Home Meds and New Rx's Prescriptions: New acetaminophen 500 mg tablet 1,000 mg PO Q8H PRN (Reason: pain) Qty: 90 RF: 3 celecoxib 200 mg capsule 200 mg PO BID PRN (Reason: pain) Qty: 60 RF: 1 pantoprazole 40 mg tablet,delayed release (DR/EC) 40 mg PO DAILY Qty: 30 RF: 0 gabapentin 300 mg capsule 300 mg PO QHS Qty: 7 RF: 0 aspirin 81 mg tablet,delayed release (DR/EC) 81 mg PO BID Qty: 60 RF: 0 Continued tamsulosin 0.4 mg capsule 0.8 mg PO HS Qty: 180 RF: 4 C-PAP RF: 0 epinephrine [EpiPen 2-Rahul] 0.3 MG/0.3 ML auto-injector 0.3 mg IJ PRN Qty: 1 RF: 0 hydrochlorothiazide 25 mg tablet 50 mg PO DAILY Qty: 180 RF: 3 testosterone cypionate [Depo-Testosterone] 200 mg/mL oil 150 mg IM Q2W Qty: 2 RF: 5 fluticasone propion-salmeterol [Advair Diskus] 100-50 mcg/dose blister with device 1 puff IH BID Qty: 60 RF: 11 allopurinol 100 mg tablet 100 mg PO TID RF: 0 indomethacin 50 mg Capsule 50 mg PO PRN PRNRF: 0 Discontinued tramadol 50 mg tablet 50 mg PO Q4H PRN (Reason: pain) Qty: 15 RF: 0 aspirin 81 MG tablet,chewable 81 mg PO DAILY RF: 0 acetaminophen 500 mg tablet 1,000 mg PO Q8H PRN (Reason: pain) Qty: 90 RF: 3 naproxen sodium [Aleve] 220 mg Capsule 440 mg PO BID RF: 0 No Action (DME) Inhaler, Assist Devices [Aerochamber Mini] 1 EACH spacer 1 ea Miscellaneous DAILY Qty: 1 RF: 0 (DME) syringe with needle 3 mL 22 gauge x 1 syringe See Dose Instructions .ROUTE .MEDSUPPLY Qty: 6 RF: 3 hydromorphone 2 mg tablet 2 mg PO Q6H MDD 8mg PRN (Reason: pain) Qty: 16 RF: 0 Discharge Instructions Additional Instructions: Dr. Olmos?s Total Knee Discharge Instructions Activity: The most important activity is to walk. You should try to take short walks a few times a day. It is important that when resting you work on keeping the knee straight. Avoid putting a pillow behind the knee as this will encourage flexion. Work on range of motion exercises as provided by Physical Therapy. - Start outpatient physical therapy within 2 weeks. - You should wear the PEGGY hose on both legs for 2 weeks. Dressing: Keep the surgical dressing in place for at least one week. After the first week it may be removed and replace with light gauze and tape or nothing. It may get wet after 3 days but avoid soaking the dressing. If it gets wet, just lightly pat dry. Medications: - You should take Tylenol and anti-inflammatory Celebrex as your primary pain control medications - You have been prescribed a stronger pain medication Hydromorphone for breakthrough pain, take as needed as prescribed. - You have also been prescribed a stomach acid reduction agent Pantoprozole to help reduce stomach acid and reflux. - You will be taking Aspirin 81mg twice a day for DVT prevention unless instructed otherwise. - If you have constipation you should take Colace or Miralax (both [id number]). It takes most people 3-4 days to have a bowel movement. Follow-up: 2 weeks Stand Alone Forms: Nursing Discharge Form Referrals: Troy Olmos MD [ [facility] STAFF PHYSICIAN] - 03/12/19 3:30 pm Activity:: Activity as Tolerated Equipment/Supplies:: Walker Diet:: As Tolerated Discharge Orders Discharge Orders: Discharge Order (Routine); Ordered 02/28/19 Ordered By: Jessica Quinn Discharge Data Discharge Date/Time-TO BE ENTERED AT DEPARTURE: 02/28/19 11:09 DS: Summary Status at Discharge Functional status at discharge: uses cane/walker Overall status at discharge: patient is back to baseline Mental Status: mental status grossly normal Speech and Movement: speech and movement normal Mood: congruent mood Affect: normal affect Exam Const General: cooperative, healthy appearing and comfortable Orientation: alert and awake Extrem Other: Patient's SARAH bandage was removed in order to visualize the Mepilex dressing. No signs of erythema or calor were noted. Dressing was dry, clean and intact. 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 Essential hypertension (Acute) cough on SARAH-I Gastroesophageal reflux disease (Acute) small hiatal hernia EGD 03/2004 Gout (Chronic) Hearing loss (Acute) bilateral Hyperlipidemia (Acute 07/10/12) intolerant to statins and Zetia Hypertension (Chronic) Increased body mass index (Acute) Lactose intolerance (Chronic) possible Low testosterone (Chronic) Malignant melanoma of skin of lower limb (Acute 05/23/13) [facility] [place]; LEFT LEG; T3ANO STAGE 2A Obstructive sleep apnea (adult) (pediatric) (Acute) SEVERE with good response to CPAP Onychomycosis (Acute) Peripheral edema (Acute) likely dependency due to morbid obesity Peyronie's disease (Acute) Screening for colorectal cancer (Chronic) Surgical History Colonoscopy - MAC (04/15/04) Rare tics, no polyps;Small HH & fundic gland polyp COLONOSCOPY W/MAC (01/24/15) DR. ULICES EVANS EGD - MAC (04/15/04) H/O shoulder surgery (Chronic) bilateral History of hernia repair (Chronic) Rotator Cuff Repair (~2005) left and right Status post arthroscopy of right knee (Chronic) Partial medial and lateral meniscectomies DOS: 04/06/18 Repeat surgery: 06/02/2018 Family History Mother Arthritis Father Alzheimer disease Sister No problems noted. Sister No problems noted. Brother No problems noted. Brother No problems noted. Maternal Grandfather No problems noted. Paternal Grandfather No problems noted. Maternal Grandmother No problems noted. Paternal Grandmother No problems noted. Son No problems noted. Daughter Epilepsy Social History Smoking/Tobacco Use Status: Former Tobacco Use Second Hand Exposure: No Alcohol Intake: current Alcohol Intake frequency: a few times a week Alcohol type: beer Drug use: Never Substance use type: does not use Caregiver/Support person: No Household members: spouse Housing: house Communication Needs: Hard of Hearing Do you need help understanding health information?: Rarely Pets and animals: No Sexually active: Yes Do you think of yourself as: straight/heterosexual Current gender identity: male What is your relationship status?: How often do you talk on the phone with friends or family?: three or more times per week How often do you get together with friends or relatives?: once per week How often do you attend taoism or scientology services?: decline to answer Do you belong to any clubs or organized social groups?: decline to answer Panel score (0-1 are the most socially isolated patients): 2 What type of physical activity do you participate in: decline to answer Duration: decline to answer Frequency: decline to answer Mariely/Temple: None Special mariely needs: No Seatbelt use: sometimes Helmet use: No Drive intox or ride w/intox bottom hoop driver: No Do you feel safe in your relationship?: Yes
[2019-02-27] MEDS: Celecoxib 200 MG CAP PO (19:52)
[2019-02-27] MEDS: Aspirin E.C. 81 MG TABEC PO (19:53)
[2019-02-27] MEDS: HYDROmorphone 2 MG TAB PO (20:59)
[2019-02-27] MEDS: Tamsulosin 0.4 MG CAPCR 0.8 MG PO (21:05)
[2019-02-28 00:08] VITALS: BP 153/70; PULSE 67; RESP 20; TEMP 36.4; O2SAT 95
[2019-02-28] MEDS: HYDROmorphone 2 MG TAB PO ×2 (02:00→09:21)
[2019-02-28] MEDS: ceFAZolin 1 GM/50 ML BAG IVPB ×2 (02:02→09:16)
[2019-02-28] MEDS: Lactated Ringers 1,000 ML 80 ML IV (02:07)
[2019-02-28 03:40] VITALS: BP 151/86; PULSE 74; RESP 18; TEMP 36.7; O2SAT 94
[2019-02-28] MEDS: Normal Saline Flush 10 ML SYR IV ×2 (07:03→09:17)
[2019-02-28 07:44] VITALS: BP 162/87; PULSE 70; RESP 18; TEMP 37.1; O2SAT 96
--- NOTE | 2019-02-28 09:19 | PT.INIE ---
Date of service: 02/28/19 Time of Service: 08:35 PT Notes Visit Reasons: (R) DJD KNEE Physical Therapy Inpatient Initial Evaluation Date: 02/28/2019 Referring Doctor: Troy Olmos MD PT Orders: PT CONSULT: Status post Ortho surgery. Status post right TKA Precautions: Fall. Standard. WBAT on right LE. Patient Profile/Admitting Diagnosis: Patient is a 68-year-old male with degenerative joint disease of the right knee and is status post right total knee arthroplasty on postoperative day 1. 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 Essential hypertension (Acute) cough on SARAH-I Gastroesophageal reflux disease (Acute) small hiatal hernia EGD 03/2004 Gout (Chronic) Hearing loss (Acute) bilateral Hyperlipidemia (Acute 07/10/12) intolerant to statins and Zetia Hypertension (Chronic) Increased body mass index (Acute) Lactose intolerance (Chronic) Low testosterone (Chronic) Malignant melanoma of skin of lower limb [place]Ac[place] 05/23/13[place] [facility] [place]; T3ANO STAGE 2A Obstructive sleep apnea (adult) (pediatric) (Acute) SEVERE with good response to CPAP Onychomycosis (Acute) Peripheral edema (Acute) likely dependency due to morbid obesity Peyronie's disease (Acute) Screening for colorectal cancer (Chronic) Surgical History (Updated 02/21/19 @ 14:29 by JEANINE Cole) Colonoscopy - MAC (04/15/04) Rare tics, no polyps;Small HH & fundic gland polyp COLONOSCOPY W/MAC (01/24/15) DR. ULICES EVANS EGD - MAC (04/15/04) H/O shoulder surgery (Chronic) bilateral History of hernia repair (Chronic) Rotator Cuff Repair (~2005) left Status post arthroscopy of right knee (Chronic) Partial medial and lateral meniscectomies DOS: 04/06/18 Repeat surgery: 06/02/2018 Social History/Home Situation: Patient lives with in a - floor home with 3 steps to enter and of rail on the left going up. 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 Equipment Owned/DME: None Subjective: Patient is agreeable to a PT consult. He hopes to go home today as soon as he is cleared to do so. He denies dizziness, chest pain, and headache throughout PT session. He did report mild discomfort on the back of the knee. He reported pain with weight bearing and movement. Objective: General Observation: Patient seen resting in bed. SARAH wraps on her right knee. Cryo/Cuff on right knee. Mental Status: Alert and oriented x4 Pain: 0/10 at rest 6/10 with weightbearing and movement. ROM: Right Upper Extremity: Shoulder Flexion WFL. Shoulder abduction WFL. Elbow flexion WFL. Wrist flexion WFL. Opening and closing of hand WFL. Left Upper Extremity: Shoulder Flexion WFL. Shoulder abduction WFL. Elbow flexion WFL. Wrist flexion WFL. Opening and closing of hand WFL. Right Lower Extremity: Hip flexion WFL. Hip abduction WFL. Knee flexion -40 to 105 degrees. Knee extension is -40 degrees. Ankle dorsiflexion WFL. Ankle plantarflexion WFL. Left Lower Extremity: Hip flexion WFL. Hip abduction WFL. Knee flexion WFL. Ankle dorsiflexion WFL. Ankle plantarflexion WFL. Strength: Right Upper Extremity: Shoulder flexors 5/5. Shoulder abductors 5/5. Elbow flexors 5/5. Elbow extensors 5/5. Actuarial Associate strong. Left Upper Extremity: Shoulder flexors 5/5. Shoulder abductors 5/5. Elbow flexors 5/5. Elbow extensors 5/5. Actuarial Associate strong. Right Lower Extremity: Hip flexors 5/5. Hip abductors 5/5. Knee flexors 3-/5. Knee extensors 3-/5. Ankle dorsiflexors 5/5. Ankle plantarflexors 5/5. Left Lower Extremity:Hip flexors 5/5. Hip abductors 5/5. Knee flexors 5/5. Knee extensors 5/5. Ankle dorsiflexors 5/5. Ankle plantarflexors 5/5. Sensation: Intact as to pain and pressure on bilateral lower extremities. Bed Mobility/Transfers: Rolling independent Supine to sit independent Sit to supine independent Sit to stand independent Stand to sit independent Bed to chair independent Chair to bed independent Gait: Patient tolerated level surface ambulation of 120 feet with supervision from this PT using a front wheeled walker with step through gait pattern and minimal verbal cueing for directional changes walker management and safe gait pattern. Patient also tolerated three 4 inch steps and two 6 inch steps while holding onto the left rail going up and on the right going down for 2 sets with step to gait pattern with supervision assist of PT. Minimal antalgia noted. Right step length and height decreased. Decreased gait velocity. Balance: Static Sitting: Normal Dynamic Sitting: Normal Static Standing: Fair Dynamic Standing: Fair Special Tests: Mobility Limitations Standardized Measure [facility] AM-PAC 6 clicks Basic Mobility Inpatient Short Form: Raw Score: 23 CMS Score: 11% deficit Informed Consent/Education: Patient instructed in purpose of PT consult and plan of care. TKA exercise protocol packet was reviewed with patient as well during the session. Assessment: Patient is a 68-year-old male with degenerative joint disease of the right knee and is status post right total knee arthroplasty on postoperative day 1. Patient is motivated to return to home regain prior level of independent function. is a good support. Prognosis for regaining prior level of function is good. Patient presents with clinical signs and symptoms consistent with current/admitting diagnoses that have resulted to mobility limitations, gait instability, generalized weakness, and impairment of motor control as demonstrated by the following impairment level findings: 1. Decreased strength to right knee major muscle groups 2. Impaired standing balance 3. Impaired activity tolerance 4. Limitation of joint range of motion in right knee Impairments are contributing to the following functional limitations: 1. Increase completion time for mobility ADL performance 2. Increased fall risk 3. Inability to negotiate steps alone safely Patient is assessed as a [id number] moderate complexity based on the following: History: Patient is a 68-year-old male with degenerative joint disease of the right knee and is status post right total knee arthroplasty on postoperative day 1. Examination: Demonstrable impairment in strength, balance, and range of motion with underlying impairments and functional limitations as documented above Presentation: Stable Decision Makin moderate complexity Goals: N/A. Patient goes home today per Ortho surgeon's order. Plan of Care/Treatment Plan: N/A. Patient goes home today per Ortho surgeon's order. DISCHARGE RECOMMENDATIONS: May benefit from skilled physical therapy services according to orthopedic surgeon's timeline recommendations. Patient will be educated and trained on home exercise program per TKA exercise protocol in preparation for outpatient physical therapy services. TREATMENT CODE/TIME: 9716 2 x 31 minutes beginning at 8:35 AM. Thank you very much for this referral. Deepti Aviles PT, DPT, CLT [facility] [place], [place]
[2019-02-28] MEDS: Acetaminophen 500 MG TAB 1000 MG PO (09:20)
[2019-02-28] MEDS: hydroCHLOROthiazide 25 MG TAB 50 MG PO (09:20)
[2019-02-28] MEDS: Pantoprazole 40 MG TABCR PO (09:21)
[2019-02-28] MEDS: Aspirin E.C. 81 MG TABEC PO (09:21)
[2019-02-28] MEDS: Celecoxib 200 MG CAP PO (09:21)
== END 2019-02-28 11:09 | disposition home or self-care (01) | DRG 470 ==
LOC: PDS 09:04 → MS 16:12
PROVIDERS: Admitting Provider Student in an Organized Health Care Education/Training Program; PCP Family Medicine; Visit Provider Student in an Organized Health Care Education/Training Program
PROC: 0SRC0J9 Replacement of Right Knee Joint with Synthetic Substitute, Cemented, Open Approach (ICD-10-PCS; CPT 27447; principal; 2019-02-27 11:45)
DX: M17.11 Unilateral primary osteoarthritis, right knee (principal); Z68.41 Body mass index [BMI] 40.0-44.9, adult; Z96.651 Presence of right artificial knee joint; M85.48 Solitary bone cyst, other site; G89.18 Other acute postprocedural pain; G47.33 Obstructive sleep apnea (adult) (pediatric); I10 Essential (primary) hypertension; K21.9 Gastro-esophageal reflux disease without esophagitis; N40.0 Benign prostatic hyperplasia without lower urinary tract symptoms; E78.5 Hyperlipidemia, unspecified; E66.9 Obesity, unspecified; Z23 Encounter for immunization
CPT/HCPCS: 27447; 20985; 76942; 97162; NC; J0690; J1100; J1885; J2405

== ENCOUNTER 2019-03-12 15:30 | Outpatient (CLI) | payer MEDICARE, MEDICAID, SELFPAY ==
--- NOTE | 2019-03-12 15:40 | DI.RAD_ITS ---
EXAM: XR KNEE RT 1V INDICATION: f/u R TKA. COMPARISON: LEFT KNEE 3 VIEW COMPLETE from 05/15/2017 XR knee RT 3V AP,lat,ramona from 12/19/2017 XR STANDING ALIGNMENT from 03/12/2019 TECHNIQUE: 2D digital imaging was performed. FINDINGS: Since the prior examination the patient has undergone a right total knee replacement. Orthopedic leonila mariann appears in good position. The left knee is well maintained. Right lower extremity measures 90 .9 cm. The left lower extremity measures 92.2 cm.
== END 2019-03-12 15:50 ==
PROVIDERS: PCP Family Medicine; Visit Provider Student in an Organized Health Care Education/Training Program
DX: M17.11 Unilateral primary osteoarthritis, right knee (principal); Z96.651 Presence of right artificial knee joint; Z47.1 Aftercare following joint replacement surgery; M21.70 Unequal limb length (acquired), unspecified site; I10 Essential (primary) hypertension
CPT/HCPCS: 73560; 77073

== ENCOUNTER 2019-04-05 09:35 | Outpatient (CLI) | payer MEDICARE, MEDICAID, SELFPAY ==
--- NOTE | 2019-04-05 09:35 | DI.RAD_ITS ---
EXAM: XR KNEE RT 3V AP,LAT,SELENA INDICATION: fall after surgery. COMPARISON: XR STANDING ALIGNMENT from 03/12/2019 TECHNIQUE: 2D digital imaging was performed. FINDINGS: There has been no change in the total knee prosthesis. No abnormal bony lucencies are seen.
== END 2019-04-05 09:55 ==
PROVIDERS: PCP Family Medicine; Visit Provider Physician Assistant
DX: Z96.651 Presence of right artificial knee joint (principal); Z47.1 Aftercare following joint replacement surgery; W19.XXXA Unspecified fall, initial encounter
CPT/HCPCS: 73562

== ENCOUNTER → 2019-04-12 07:55 | Outpatient (BNVA) | payer MEDICARE, SELFPAY | PROVIDERS: PCP Family Medicine; Referring Provider Family Medicine; Visit Provider Student in an Organized Health Care Education/Training Program | DX: M17.11 Unilateral primary osteoarthritis, right knee (principal); Z47.1 Aftercare following joint replacement surgery; Z96.651 Presence of right artificial knee joint; I10 Essential (primary) hypertension ==

== ENCOUNTER → 2019-05-24 07:57 | Outpatient (BNVA) | payer MEDICARE, SELFPAY | PROVIDERS: PCP Family Medicine; Referring Provider Family Medicine; Visit Provider Student in an Organized Health Care Education/Training Program | DX: M17.11 Unilateral primary osteoarthritis, right knee (principal); Z47.1 Aftercare following joint replacement surgery; Z96.651 Presence of right artificial knee joint ==

== ENCOUNTER 2019-09-06 02:45 | Outpatient (CLI) | payer MEDICARE, MEDICAID, SELFPAY ==
--- NOTE | 2019-09-06 10:30 | DI.NM_ITS ---
APPROVED REPORT Exam: Pharmacologic Patient Location: Out-Patient Room/Bed: Stress Nurse: Radha Llamas RN BMI: 42.32 Baseline Rhythm: Sinus Rhythm, Abnormal R wave progression, early transition. Indications: Patient testing today for further risk stratification. Patient reports SOB with any exer tion for the last year that is getting worse as time goes on. Medical History Medical History: ALICE???uses CPAP, GERD, Peripheral Edema. Cardiac Medications: Aspirin, Hydrochlorothiazide, Spironolactone. Allergies: SARAH Inhibitors, Amlodipine, Ezetimibe, Hydrocodone, Lisinopril, Losartan, Oxycodone, Clams , Red Rice Yeast. Cardiac Risk Factors: FHX of CAD, HTN, Hyperlipidemia Previous Cardiac Procedures: PCI Pretest Chest Pain Characteristics: None Exercise History: Physically active Physical Disabilities: Obesity. Lung Sounds: Clear to auscultation Heart Sounds: Regular Stress Test Details Test: Exercise stress converted to pharmacologic stress due to failure to obtain a diagnostic stress test. Nuclear Acquisition: Rest Tc-99m/Stress Tc-99m 1 day Rest Isotope: Tc-99m Sestamibi. Dose: 13.5 Date: 09/06/2019 Injection Time: 1045 Stress Isotope: Tc-99m Sestamibi. Dose: 38.5 Date: 09/06/2019 Injection Time: 1325 HR Resting HR Supine: 69 bpm Max Heart Rate (APMHR): 153 bpm Resting HR Standin bpm Target HR (85% APMHR): 130 bpm Max HR Achieved: 121 bpm % of APMHR: 79 BP Resting BP Supine: 178/80 mmHg Resting BP Standin/76 mmHg Max BP: 188/78 mmHg ECG Resting ECG: Sinus Rhythm Comment: Patient was on treadmill for approximately 2 minutes before transitioning him to a Lexiscan stress test. Stress ECG: Sinus Tachycardia ST Change: Normal Arrhythmia: None Recovery ECG: Sinus Rhythm Recovery ST Change: Normal Recovery Arrhythmia: None Clinical Reason for Termination: Dyspnea Stress Symptoms: Patient reported midsternal chest pressure (4/10) at approximately 1 minute post Harmeet iscan injection resolving at approximately 3 minutes post Lexiscan injection. Exercise duration: 2 min5 sec Highest Stage Reached: Stage 1: 1.7 mph at 10% grade. Exercise capacity: 4.65 METs Functional Capacity: Markedly diminished capacity Stress ECG Conclusion 1. The patient briefly exercised for 2 minutes prior to Lexiscan. 2. The ECG portion of the exam is nondiagnostic due to failure to reach at least 80% of predicted hea rt rate. Stress Test Summary STAGE Time (mins) Speed (mph) Grade (%) HR BP SYMPTOMS METS Supine 69 178/80 Standing 77 172/76 1 3 1.7 10 121 4.6 1 min post Lexiscan injection 109 188/78 3 min post Lexiscan injection 97 176/74 6 min post Lexiscan injection 96 174/80 MPI Conclusion Fraction was 42% with stress. There were no wall motion abnormalities. There is no evidence of ischemia on the imaging portion of the exam. This represents a normal SPECT stress test. Radiologist Interpretation Radiologist agrees with Arranging Funeral Director's Interpretation. Radiologist Interpretation by: Lashawn Price MD Interpretation Date/Time: 09/07/2019 10:10:41
[2019-09-06] MEDS: Regadenoson 0.4 MG/5 ML SYR IVP (14:56)
== END 2019-09-06 03:05 ==
PROVIDERS: PCP Family Medicine; Visit Provider Family Medicine
DX: R07.9 Chest pain, unspecified (principal); R60.0 Localized edema; K21.9 Gastro-esophageal reflux disease without esophagitis; I10 Essential (primary) hypertension; E78.5 Hyperlipidemia, unspecified; Z82.49 Family history of ischemic heart disease and other diseases of the circulatory system
CPT/HCPCS: 78452; 93016; 93018; 93017; J2785

== ENCOUNTER 2019-09-10 01:31 | Outpatient (CLI) | payer MEDICARE, SELFPAY ==
[2019-09-10 09:07] LABS: Anion Gap 9.7 mmol/L (3-11); BUN 25 mg/dL (7-18); CO2 27.3 mmol/L (21.0-32.0); CREATININE 1.36 mg/dL (0.70-1.30); Calcium 8.8 mg/dL (8.5-10.1); Calculated LDL 142 mg/dL (<100); Chloride 103 mmol/L (98-107); Cholesterol 199 mg/dL (<200); Estimated GFR 52.27 (mL/min/1.73m2); Glucose 129 mg/dL (74-106); HDL Cholesterol 18 mg/dL (40-60); Potassium 4.3 mmol/L (3.5-5.1); Sodium 140 mmol/L (136-145); Triglyceride 196 mg/dL (<150)
[2019-09-11 12:13] LABS: Uric Acid 9.1 mg/dL (3.5-7.2)
[2019-09-14 16:26] LABS: Testosterone, Free 23.3 ng/dL (3.47-13.0); Testosterone, Total 686 ng/dL (240-950)
== END 2019-09-10 01:51 ==
PROVIDERS: PCP Family Medicine; Visit Provider Family Medicine
DX: E78.5 Hyperlipidemia, unspecified (principal); E87.1 Hypo-osmolality and hyponatremia; E79.0 Hyperuricemia without signs of inflammatory arthritis and tophaceous disease
CPT/HCPCS: 36415; 80048; 80061; 84402; 84403; 84550

== ENCOUNTER 2019-09-14 01:47 | Outpatient (CLI) | payer MEDICARE, MEDICAID, SELFPAY ==
[2019-09-14 13:08] LABS: Hemoglobin A1C 6.3 % (3.8-5.6)
== END 2019-09-14 02:07 ==
PROVIDERS: PCP Family Medicine; Visit Provider Family Medicine
DX: R73.9 Hyperglycemia, unspecified (principal)
CPT/HCPCS: 36415; 83036; 84550

== ENCOUNTER → 2019-11-23 10:57 | Outpatient (BNVA) | payer MEDICARE, SELFPAY | PROVIDERS: PCP Family Medicine; Referring Provider Family Medicine; Visit Provider Physical Therapy Assistant | DX: Z12.11 Encounter for screening for malignant neoplasm of colon (principal); Z86.010 Personal history of colon polyps; I10 Essential (primary) hypertension ==

== ENCOUNTER 2019-12-03 07:13 | Day surgery (SDC) | payer MEDICARE, MEDICAID, SELFPAY ==
--- NOTE | 2019-12-03 06:49 | COLE_ITS ---
Date of service: 12/03/19 Time of Service: 09:17 Colonoscopy Report Date of procedure: 12/03/19 Pre-op diagnosis general: Hx of colon polyps Post-op diagnosis procedure note: other (Polyps) Procedure: Colonoscopy with polypectomy Surgeon: Cat Snyder Anesthesia proc note operative: other (General/ASA 3/Maria Del Carmen Celis CRNA) Estimated blood loss (mL): 3 Pathology: other (Transverse polyp, sigmoid polyp x3, rectal polyps x9) Complications: None Disposition: same day Indications: The patient is here for Colonoscopy pre-op. His last screening was in 2014 and was remarkable for tubular adenoma. He has no family history of colon cancer. He has not had any bowel habit changes. -Discussed colonoscopy bowel prep as well as the procedure. Discussed possible complications of the procedure to include bleeding, pain, perforation, missed small lesion/polyp, sore throat, aspiration and adverse reaction to the medications. Questions were answered to patient?s satisfaction. No guarantees were implied or given. Prep: Miralax/Dulcolax Procedure Start Time: :27 Procedure End Time: :11 Retraction Time: 38 minutes Findings: multiple small sessile polyps Procedure Description: After informed consent was obtained the patient was t aken to the procedure room and placed in a left decubitous position. Monitors were applied and a time out was done. The patients name, date of , procedure, allergies to medications and metal in their body was reviewed. The patient was then sedated. Once sedated and comfortable a rectal exam was done. External exam was normal. Internal exam revealed a normal sphincter tone and no palpable masses. The prostate felt smooth. The scope was then introduced and retro-flexed. No internal hemorrhoids were identified. The scope was then advanced to the cecum without difficulty. The ileocecal valve and appendiceal orifice were identified. The prep was good. The scope was then slowly retracted over 38 minutes back into the rectum. Polyps were removed with cold forceps in the transverse colon, sigmoid colon x3 and rectum x9. The scope was removed and the patient was woken up and taken back to Same day surgery in stable condition. The patient tolerated the procedure well and there were no immediate complications. Follow up: The patient should follow up in 5-7 years unless they develop changes in bowel habits or other new gastrointestinal complaints.
--- NOTE | 2019-12-03 06:50 | W.PM.DSUDISC ---
Discharge Plan Disposition Patient Disposition: HOME Condition: Good Discharge Details Reason For Visit: Hx of polyps Attending Provider: Cat Snyder Primary Care Provider: Nigel Emerson Home Meds and New Rx's Prescriptions: Continued spironolactone [Aldactone] 25 mg tablet 25 mg PO DAILY Qty: 30 RF: 2 hydrochlorothiazide 25 mg tablet 50 mg PO DAILY Qty: 180 RF: 3 (DME) syringe with needle 3 mL 22 gauge x 1 syringe See Dose Instructions .ROUTE .MEDSUPPLY Qty: 6 RF: 3 C-PAP RF: 0 (DME) Inhaler, Assist Devices [Aerochamber Mini] 1 EACH spacer 1 ea Miscellaneous DAILY Qty: 1 RF: 0 epinephrine [EpiPen 2-Rahul] 0.3 MG/0.3 ML auto-injector 0.3 mg IJ PRN Qty: 1 RF: 0 fluticasone propion-salmeterol [Advair Diskus] 100-50 mcg/dose blister with device 1 puff IH BID Qty: 60 RF: 11 tamsulosin 0.4 mg capsule 0.8 mg PO HS Qty: 180 RF: 4 metformin 500 mg tablet 500 mg PO BID Qty: 60 RF: 2 testosterone cypionate [Depo-Testosterone] 200 mg/mL oil 150 mg IM Q2W Qty: 2 RF: 5 indomethacin 50 mg Capsule 50 mg PO PRN PRNRF: 0 acetaminophen 500 mg tablet 1,000 mg PO Q8H PRN (Reason: pain) Qty: 90 RF: 3 naproxen sodium [Aleve] 220 mg Capsule 440 mg PO BID PRNRF: 0 Discontinued polyethylene glycol 3350 17 gram/dose powder 238 g PO ONCE Qty: 238 RF: 0 bisacodyl [Dulcolax (bisacodyl)] 5 mg tablet,delayed release (DR/EC) 5 mg PO ONCE Qty: 4 RF: 0 Discharge Instructions Additional Instructions: Findings: multiple small polyps Follow up: 3-5 years Please call if you develop: fevers >101.5 Nausea or Vomiting Abdominal pain that is not transient DAY SURGERY UNIT POST ENDOSCOPY INSTRUCTIONS 1. Because there will be medication in your system for the next 24 hours, you may feel a little sleepy. Your coordination will be affected. Therefore: a. Do not drive or operate dangerous equipment for 24 hours. b. Do not drink alcohol beverages for 24 hours (not even beer). c. Plan to go home and rest for the day. 2. Generally there are no restrictions on your activity after a day or so has gone by, but you may feel a bit fatigued for a few days. 3 After you arrive home you may have a light meal and return to a normal diet as you can tolerate it without feeling sick to your stomach. 4. After surgery, you may feel pain or discomfort. This should be only transient, but if it persists please contact your doctor. 5. If there are any questions regarding the findings of your procedure, please feel free to contact your doctor. 6. If you are unable to contact your doctor with a problem, contact the hospital at [phone]. 7. Continue all your regular medications unless directed otherwise. I understand the above instructions and have no questions. Signature of Patient or Responsible Adult Escort Date/Time Name of Responsible Adult Escort Signature of Nurse Date/Time Activity:: Activity as Tolerated Diet:: As Tolerated Discharge Orders Discharge Orders: Discharge Order (Routine); Ordered 12/03/19 Ordered By: Cat Snyder
[2019-12-03 07:31] VITALS: BP 135/90; PULSE 87; RESP 16; TEMP 36.6; O2SAT 93
[2019-12-03] MEDS: Lactated Ringers 1,000 ML 80 ML IV (08:09)
--- NOTE | 2019-12-03 08:45 | BOWEL_PTH ---
PATIENT: Lester Corey LOC: [facility] U#:[id number] AGE/SX: 69/M ROOM: RE12/03/[address]: Cat Snyder MD : 1950 BED: DIS: 12/03/2019 SPEC #: [id number] RECD: 12/03/19 12:37 STATUS: SANDRA REQ #: [id number] YARED: 12/03/19 08:[address]: Cta Snyder DEPT: Surgical Specimen RECD BY: Laila Park ENTERED: 12/03/19 12:38 SP TYPE: Bowel OTHR DR: Nigel Emerson MD Tissues: 1 - BIOPSY BOWEL 2 - BIOPSY BOWEL 3 - BIOPSY BOWEL Procedures: GROSS AND MICRO LEVEL 4 Comments: [id number]
[2019-12-03 09:50] VITALS: BP 145/96; PULSE 74; RESP 14; TEMP 36.4; O2SAT 93
== END 2019-12-03 09:10 | disposition home or self-care (01) ==
LOC: SUR 07:14
PROVIDERS: PCP Family Medicine; Visit Provider Surgery
PROC: 0DJD8ZZ Inspection of Lower Intestinal Tract, Via Natural or Artificial Opening Endoscopic (ICD-10-PCS; CPT 45378; principal; 2019-12-03 08:45)
DX: Z12.11 Encounter for screening for malignant neoplasm of colon (principal); K62.1 Rectal polyp; K63.5 Polyp of colon; Z86.010 Personal history of colon polyps; G47.33 Obstructive sleep apnea (adult) (pediatric); I10 Essential (primary) hypertension; K21.9 Gastro-esophageal reflux disease without esophagitis; E66.9 Obesity, unspecified
CPT/HCPCS: 45380; 88305; J2001; J2704

== ENCOUNTER 2019-12-24 07:11 | Outpatient (CLI) | payer MEDICARE, SELFPAY ==
[2019-12-25 12:26] LABS: COVID-19 RT-PCR Result NEGATIVE (Negative)
== END 2019-12-24 07:31 ==
PROVIDERS: PCP Family Medicine; Visit Provider Family Medicine
DX: Z11.59 Encounter for screening for other viral diseases (principal); Z01.811 Encounter for preprocedural respiratory examination
CPT/HCPCS: U0003

== ENCOUNTER 2019-12-28 01:03 | Outpatient (CLI) | payer MEDICARE, MEDICAID, SELFPAY ==
[2019-12-28] MEDS: Albuterol HFA 18 GM 200 PUFF INH IH (09:01)
[2019-12-28] MEDS: Inhaler, Assist Device 1 EACH MC (09:02)
--- NOTE | 2019-12-31 11:09 | W.PFT ---
Date of service: 12/28/19 Time of Service: 08:03 Pulmonary Function Test Result Interpretation Spirometry: Shows no evidence of obstructive airways disease, no bronchodilator response Lung Volumes: Mild restriction Diffusion Capacity: Normal Airway Pressure: Normal Impression Mild restrictive lung disease, clinical correlation recommended. When the study was compared to previous one from 03/04/2015, the patient has a 460 cc decline in FVC, FEV1 has remained stable TLC has declined by 230 cc, DLCO has had a substantial decline, Clinical Correlation therefore is recommended.
== END 2019-12-28 01:23 ==
PROVIDERS: PCP Family Medicine; Visit Provider Internal Medicine
DX: R06.09 Other forms of dyspnea (principal)
CPT/HCPCS: 94060; 94726; 94729

== ENCOUNTER 2019-12-28 03:52 | Outpatient (CLI) | payer MEDICARE, MEDICAID, SELFPAY ==
--- NOTE | 2019-12-28 09:15 | DI.CT_ITS ---
EXAM: CT CHEST WO CLINICAL HISTORY: DYSPNEA,R06.00 TECHNIQUE: COMPARISON: CT CHEST WITH CONTRAST from 02/18/2017 FINDINGS: Noncontrast chest CT was performed. Examination is compared with prior CT a of the chest March 09. Images obtained through the upper abdomen show unremarkable appearance of visualized portions of live r and spleen. Diaphragm is elevated on the left, this finding was present on the prior study of 2016. There are ar eas of apparent scarring or chronic atelectasis at the left lung base. Otherwise the lungs appear clear and normally expanded. Tracheobronchial tree appears intact. No me diastinal or hilar adenopathy by noncontrast criteria. Cardiac size is normal. Coronary artery calc ifications noted. Main pulmonary artery is ectatic at 44 millimeters. Right and left pulmonary arteries measure 26 and 25 millimeters in respectively. No pleural effusion or pleural-based mass. IMPRESSION: No evidence of acute intrapulmonary process. Chronic left basilar atelectasis or scarring with eleva tion of the diaphragm. RADIATION DOSE DELIVERED: 1,178.28mGy.cm Total DLP
== END 2019-12-28 04:12 ==
PROVIDERS: PCP Family Medicine; Visit Provider Internal Medicine
DX: R06.00 Dyspnea, unspecified (principal); R91.8 Other nonspecific abnormal finding of lung field
CPT/HCPCS: 71250

== ENCOUNTER 2020-01-07 10:16 | Outpatient (CLI) | payer MEDICARE, MEDICAID, SELFPAY ==
--- NOTE | 2020-01-07 14:11 | DI.RAD_ITS ---
EXAM: XR SHOULDER RT COMPLETE 2+V CLINICAL HISTORY: Right shoulder pain, acute, M25.519. TECHNIQUE: 2D digital imaging was performed. COMPARISON: CR RIGHT SHOULDER COMPLETE from 09/19/2008 FINDINGS: metallic anchors noted in the humeral head. There is severe spurring at the tip of the acromion. S purring is also noted at the greater tuberosity. There is a been a prior distal clavicular resection . There is spurring at the rim of the glenoid. No tendon or joint space calcifications are seen. IMPRESSION: Degenerative and postsurgical changes. DATA REPOSITORY: RADIATION DOSE DELIVERED:
== END 2020-01-07 10:36 ==
PROVIDERS: PCP Family Medicine; Visit Provider Nurse Practitioner Family
DX: M19.011 Primary osteoarthritis, right shoulder (principal); M25.511 Pain in right shoulder; M77.8 Other enthesopathies, not elsewhere classified
CPT/HCPCS: 73030

== ENCOUNTER 2020-01-14 09:46 | Outpatient (CLI) | payer MEDICARE, MEDICAID, SELFPAY ==
--- NOTE | 2020-01-14 08:45 | DI.RAD_ITS ---
EXAM: XR CERVICAL SPINE COMP 4-5V CLINICAL HISTORY: neck pain with shoulder involvement ? disc m54.2 cervicalgia TECHNIQUE: COMPARISON: No exams were available for comparison FINDINGS: Six views were obtained. There is a mild cervical kyphosis. The intervertebral disc spaces appear f airly well maintained except for mild narrowing at C5-6 and moderate narrowing at C6-7. There are ve ry prominent endplate hypertrophic changes at C3-4 C4-5 and C5-6. Mild facet hypertrophic degenerati ve changes also noted bilaterally. Neural foramina are not ideally evaluated but there is question o f neural foraminal narrowing on the left at C 4 5 and C5-6 and on the right at C5-6 and C6-7. IMPRESSION: Degenerative changes of the cervical spine as described above, if there is a clinical suspicion of ne rve impingement additional evaluation with MRI may be considered to assess possibility of neural fora alexandre narrowing and /or disc herniation. RADIATION DOSE DELIVERED: Total DLP
== END 2020-01-14 10:06 ==
PROVIDERS: PCP Family Medicine; Visit Provider Family Medicine
DX: M47.812 Spondylosis without myelopathy or radiculopathy, cervical region (principal)
CPT/HCPCS: 72050

== ENCOUNTER 2020-01-29 00:41 | Outpatient (CLI) | payer MEDICARE, MEDICAID, SELFPAY ==
--- NOTE | 2020-01-29 08:50 | DI.MRI_ITS ---
EXAM: MR CERVICAL SPINE WO CLINICAL HISTORY: neck pain,m54.2 TECHNIQUE: Multiplanar multisequence MRI of the cervical spine was performed without intravenous con trast. COMPARISON: CR XR CERVICAL SPINE COMP 4-5V from 01/14/2020 FINDINGS: The examination is limited due to patient motion artifact. BONES: Vertebral body heights are maintained. Intervertebral disc spaces are normal. Alignment is nor mal. Bone marrow signal intensity is within normal limits. CERVICAL CORD: Craniovertebral junction is unremarkable. The cervical cord is normal size and signal intensity. SOFT TISSUES: There is a 5.6 craniocaudad by 3.6 AP by 6 cm transverse fat density mass in the subcut aneous tissues overlying the right trapezius muscle. It is most consistent with a lipoma. C2-3: No disc herniation or bulge is identified. No significant central spinal canal or neural forami nal stenosis. C3-4: Small left disc herniation effacing the anterior subarachnoid space. No significant central sp inal canal stenosis. C4-5: Mild prominence of the osteophyte disc complex. Mild narrowing of the central spinal canal. M ild narrowing of the left neural foramen. The right neural foramen is unremarkable. C5-6: Mild prominence of the osteophyte disc complex. Mild narrowing of the central spinal canal. M ild narrowing of the right neural foramen. The left neural foramen is unremarkable. C6-7: Mild prominence of the osteophyte disc complex. No significant central spinal canal stenosis. Mild narrowing of the right neural foramen. No significant left neural foraminal stenosis. C7-T1: No disc herniation or bulge is identified. No significant central spinal canal or neural dominique inal stenosis IMPRESSION: 1. Small left disc herniation effacing the anterior subarachnoid space at C3-C4. No significant cent ral spinal canal stenosis is seen. 2. Multilevel degenerative changes in the cervical spine resulting in central spinal canal and neural foraminal narrowing as described above. 3. Subcutaneous lipoma overlying the right trapezius muscle. DATA REPOSITORY:
== END 2020-01-29 01:01 ==
PROVIDERS: PCP Family Medicine; Visit Provider Family Medicine
DX: M50.21 Other cervical disc displacement, high cervical region (principal); M47.812 Spondylosis without myelopathy or radiculopathy, cervical region; D17.79 Benign lipomatous neoplasm of other sites
CPT/HCPCS: 72141

== ENCOUNTER 2020-04-10 03:49 | Outpatient (CLI) | payer MEDICARE, MEDICAID, SELFPAY ==
--- NOTE | 2020-04-10 | DI.MRI_ITS ---
EXAM: MR UPPER JOINT RT WO CLINICAL HISTORY: RT SHOULDER PAIN, LIMITED RANGE OF MOTION, + SHOULDER EXAM. TECHNIQUE: Multiplanar multisequence MRI was performed. COMPARISON: No exams were available for comparison FINDINGS: Artifact is seen in the region of the acromioclavicular joint and humeral head from the patient's inder or surgery. BONES: There is no fracture or contusion pattern. JOINTS: Metallic artifact is seen obscuring a large portion of the acromioclavicular joint. No gross acute abnormality is identified. The glenohumeral joint is normal. TENDONS: Supraspinatus: There is a question of discontinuity of the posterior aspect of the supraspinatus tend on suggesting a tear. Infraspinatus: Unremarkable. Subscapularis: There is thickening of the subscapularis tendon consistent with tendinosis. Teres Minor: Unremarkable. Biceps and [place]: Unremarkable. MUSCLES: Mild fatty atrophy is seen of the supraspinatus and infraspinatus muscles. The teres minor and subscapularis muscles show normal signal and size. GLENOID LABRUM: Unremarkable on this noncontrast examination. SOFT TISSUES: Unremarkable. LIGAMENTS: Unremarkable. OTHER: Subacromial and subdeltoid bursae are unremarkable. IMPRESSION: 1. Examination limited by the orthopedic artifact in the shoulder. 2. Findings suspicious for partial tear of the posterior aspect of the supraspinatus tendon. 3. Mild fatty atrophy of the supraspinatus and infraspinatus muscles. 4. Subscapularis tendinosis. DATA REPOSITORY:
== END 2020-04-10 04:09 ==
PROVIDERS: PCP Family Medicine; Visit Provider Neurological Surgery
DX: M25.511 Pain in right shoulder (principal); M62.511 Muscle wasting and atrophy, not elsewhere classified, right shoulder; M77.8 Other enthesopathies, not elsewhere classified
CPT/HCPCS: 73221

== ENCOUNTER 2020-06-17 08:53 | Outpatient (CLI) | payer MEDICARE, MEDICAID, SELFPAY ==
--- NOTE | 2020-06-17 09:45 | DI.RAD_ITS ---
EXAM: XR ANKLE LT COMPLETE CLINICAL HISTORY: ??FRACTURE/POST TRAUMA m25.572 pain lt ankle and joints lt foot TECHNIQUE: 2D digital imaging was performed. COMPARISON: No exams were available for comparison FINDINGS: BONES: There is a nondisplaced fracture extending obliquely through the distal fibula through the lev el of the ankle mortise. No bony destructive lesion is seen. No talar dome defect or tibial fractu re is seen. JOINTS:The ankle mortise is normally aligned. There are degenerative changes at the medial malleolus as well as talonavicular joint. SOFT TISSUE: Soft tissue swelling is noted around both malleoli, greater medially.. IMPRESSION: Nondisplaced fracture of the lateral malleolus. DATA REPOSITORY: RADIATION DOSE DELIVERED:
--- OUTSIDE RECORDS SUMMARY | 2020-06-18 09:07 | XMS_ITS ---
:1950 Author Care Team Providers Name Role Phone RUMA WEIR MD Primary Care Provider [phone] [facility] MEDICAL RECORDS OTHER [phone] [facility] OTHER [phone] Allergies Code Code System Name Reaction Severity Status Onset Abdulaziz Inhibitors ? ? Active ? 177258 RxNorm Ezetimibe ? ? Active ? 58017 RxNorm Lisinopril ? ? Active ? 67763 RxNorm Losartan ? ? Active ? 7804 RxNorm Oxycodone ? ? Active ? 280066 RxNorm Red Yeast Rice ? ? Active ? 634876 RxNorm Zetia ? ? Active ? Notes: seafood Medications Name Status Start Date Stop Date ? ? acetaminophen 500 mg tablet Active ? Not available TK 2 CAPLETS PO Q 8 H PRN FOR PAIN Advair Diskus Completed ? 02/22/2020 aspirin Completed ? 02/22/2020 81mg daily aspirin 81 mg tablet,delayed release Active ? Not available TK 1 T PO BID BD Luer-Soumya Syringe 3 mL 22 gauge x 1 Active ? Not available USE DIRECTED TWICE PER MONTH celecoxib 200 mg capsule Active ? Not joel ilable TK 1 C PO BID PRF PAIN cyclobenzaprine 10 mg tablet Active ? Not available TAKE ONE TABLET BY MOUTH AT BEDTIME NEEDED FOR MUSCLE SPASM AND PAIN diazepam 5 mg tablet Active ? Not availab le TAKE 1 TABLET BY MOUTH AT LEAST 30 MINUTES PRIOR TO MRI MA Y REPEAT NEEDED epinephrine 0.3 mg/0.3 mL injection, auto-injector Active ? Not available INJECT 0.3 MILLILITER (0.3 MG) BY INTRA MUSCULAR ROUTE ONCE NEEDED FOR ANAPHYLAXIS fluticasone 100 mcg-salmeterol 50 Active ? Not available mcg/dose blistr powdr for inhalation gabapentin 300 mg capsule Active ? Not av ailable TK 1 C PO QHS hydrochlorothiazide Active ? Not availabl e 25mg daily hydrochlorothiazide 25 mg tablet Active ? Not available TAKE TWO TABLETS BY MOUTH EVERY DAY hydromorphone 2 mg tablet Active ? Not av ailable lorazepam 1 mg tablet Active ? Not availa ble TAKE ONE TABLET BY MOUTH ONCE 1 HOUR PRIOR TO MRI metformin 1,000 mg tablet Active ? Not av ailable TAKE ONE TABLET BY MOUTH TWICE A DAY metformin 500 mg tablet Active ? Not avai lable Take 1 tablet twice a day by oral route. methocarbamol 500 mg tablet Active ? Not available TAKE ONE TABLET BY MOUTH AT BEDTIME metoprolol succinate ER 25 mg tablet,extended release 24 hr Acti ve ? Not available TAKE ONE TABLET BY MOUTH EVERY DAY naproxen sodium Active ? Not available 220mg BID pantoprazole 40 mg tablet,delayed release Active ? Not available TK 1 T PO D penicillin V potassium 500 mg tablet Active ? Not available TAKE ONE TABLET BY MOUTH FOUR TIMES A DAY FOR 7 DAYS prednisone 20 mg tablet Active ? Not avai lable TAKE TWO TABLETS BY MOUTH EVERY DAY FOR 7 DAYS FOR SHOULDER/NEC K PAIN spironolactone 25 mg tablet Active ? Not available TAKE ONE TABLET BY MOUTH EVERY DAY Stiolto Respimat 2.5 mcg-2.5 mcg/actuation solution for inhalati on Completed ? 02/22/2020 Inhale 2 puffs every day by inhalation route. Symbicort 80 mcg-4.5 mcg/actuation HFA aerosol inhaler Completed ? 02/22/2020 INHALE 2 PUFFS BY MOUTH TWICE A DAY tamsulosin Active ? Not available 0.4mg daily tamsulosin 0.4 mg capsule Active ? Not av ailable TAKE TWO CAPSULES BY MOUTH AT BEDTIME testosterone cypionate 200 mg/mL intramuscular oil Active ? Not available INJECT 150 MG 0.75 ML INTRAMUSCULARLY EVERY 2 WEEKS DOSE INCREASE 09/01/2018 tramadol 50 mg tablet Active ? Not availa ble TAKE ONE TABLET BY MOUTH TWICE A DAY NEEDED FOR PAIN triamcinolone acetonide Active ? Not avai lable 0.5% BID Problems Name Status Onset Date Source ? Onychomycosis Active 11/25/2017 ? Malignant Melanoma of Skin of Lower Active 11/25/2017 ? Limb Tubular Adenoma Active 11/25/2017 ? Hyperlipidemia Active 11/25/2017 ? Dyslipidemia Active 11/25/2017 ? Obesity Active 11/25/2017 ? Hearing Loss Active 11/25/2017 ? Hypertensive Disorder Active 11/25/2017 ? Disorder of Diaphragm Active 11/25/2017 ? Gastroesophageal Reflux Disease Active 11/25/2017 ? Benign Prostatic Hypertrophy with Active 11/25/2017 ? 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 Dyspnea on Exertion Active 11/25/2017 ? Chest Pain Active 11/25/2017 ? Lactose Intolerance Active 11/25/2017 ? 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 Obstructive Sleep Apnea Syndrome Active ? History Dyspnea Active ? History Procedures Date Name Performed by ? 11/29/2019 CT, Chest, W/o Contrast Xray [facility] [address] [place], [place] [address] (Work Place) Results Lab Results None recorded. Past Encounters 05/23/2020 Paralysis of Diaphragm; Obstructive Slee p Apnea Syndrome Marion Joseph MD: [address] [place] [address] Dr bradford Escalante [address] [place] [phone], Ph. 02/22/2020 Dyspnea; Paralysis of Diaphragm; Obstruc tive Sleep Apnea Syndrome Marion Joseph MD: [address] [place] [address] Dr bradford Escalante [address] [place] [phone], Ph. 02/21/2020 Obstructive Sleep Apnea Syndrome Juliet Medel SENIOR DATA ANALYST: [address] [place] [phone], Ph. 11/29/2019 Dyspnea; Obstructive Sleep Apnea Syndrom e Marion Joseph MD: [address] [place] [address] Dr bradford Escalante [address] [place] [phone], Ph. 02/05/2019 Obstructive Sleep Apnea Syndrome Juliet Medel SENIOR DATA ANALYST: [address] [place] [phone], Ph. Social History Tobacco Smoking Status Never Smoker Vaccine List Vaccine Type influenza, injectable, quadrivalent 02/28/2019 influenza, trivalent, adjuvanted 01/16/2020 pneumococcal conjugate PCV 13 08/24/2017 pneumococcal polysaccharide PPV23 08/30/2018 Td, adsorbed, preservative free, adult u se, Lf unspecified 08/24/2017 Tdap 06/13/2008 Plan of Care Reminders Provider Appointments None ? ? recorded. Lab None ? ? recorded. Referral None ? ? recorded. Procedures None ? ? recorded. Surgeries None ? ? recorded. Imaging None ? ? recorded. Vitals 05/23/2020 09:00AM Office 30 Height Weight BMI Blood Pressure 175.26 cm 132 kg 43 kg/m2 148/84 mm[Hg] 02/22/2020 02:30PM Office 30 Height Weight BMI Blood Pressure 175.26 cm 132 kg 43 kg/m2 132/84 mm[Hg] 02/21/2020 08:00AM Office 30 Height Weight BMI Blood Pressure 175.26 cm 132.45 kg 43.1 kg/m2 132/84 mm[Hg] 11/29/2019 10:15AM Office 15 Height Weight BMI Blood Pressure 175.26 cm 131.45 kg 42.8 kg/m2 163/95 mm[Hg] 02/05/2019 10:45AM Office 30 Height Weight BMI Blood Pressure 175.26 cm 137.94 kg 44.9 kg/m2 144/80 mm[Hg] 11/28/2017 02:30PM Office 30 Height Weight BMI Blood Pressure 175.26 cm 133.63 kg 43.5 kg/m2 150/70 mm[Hg] 12/14/2016 Height Weight Blood Pressure 175.26 cm 130.78 kg 138/80 mm[Hg] 10/12/2016 Height Weight Blood Pressure 175.26 cm 124.77 kg 160/80 mm[Hg] 06/10/2015 Height Weight Blood Pressure 175.26 cm 124.4 kg 136/80 mm[Hg]
--- OUTSIDE RECORDS SUMMARY | 2020-06-18 09:07 | XMS_ITS | Encounter Summary ---
:1950 Author Care Team Providers Name Role Phone Nigel Emerson MD Primary Care Provider [phone] [facility] Medical Records OTHER [phone] [facility] OTHER [phone] Reason for Visit Obstructive sleep apnea syndrome; Paraly sis of diaphragm Assessment and Plan 1. 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 He is Off Advair, he does not need inhalers. I explained to the patient how the hemid iaphragmatic paralysis especially during REM sleep makes him prone to hypoventilate, his opacity continues to contribute to poor movement of the only working righ t hemidiaphragm. Therefore weight loss w as advised, He would be an excellent candidate for d iaphragmatic plication, once his BMI is below 35, and he will also need a sniff test, if he has paradoxical motion of the diaphragm on the sniff test, that would indicate better possible outcome from pl ication. He is going to work hard on the weight l oss, as soon as he reaches the weight goal of BMI below 35, he will let us know, and we will send him back to see Dr. Morse I reviewed Dr. Morse's note from 02/18 In the meantime, he is doing a great caridad l better since his BiPAP pressures were raised to IMAX 25, E minimum 16, pressure support 4. We will continue with that setting. He now understands that during REM sleep , he is literally living off of his right hemidiaphragm. He may be a good candidate for pulmonary exercise rehab once his diaphragmatic plication is done. Referral will be made once the program reopens, the right now shut down due to the coronavirus infection. Overnight oximetry on room air on BiPAP will be carried out, he already has mild to moderate pulmonary hypertension, with diaphragmatic paralysis, he may have significant nocturnal hypoxemia and may nee d supplemental oxygen at night. Order wa s sent to [facility] again, as the previous testing had no data on it If his condition worsens, in the future , especially if he is not a candidate for plication, he may need to be switched to BiPAP with a backup rate or trilogy nocturnal ventilator. Based on recent simple pulmonary exercis e stress test, he does not need supplemental oxygen at rest or on exertion His cardiac work-up so far showed no sug gestive problem that could be contributing to his shortness of breath, on nuclear stress testing 09/06/2019, which was started out as an exercise stress and then l ater switched to nuclear he was able to carry out 4.6 mets of exertion, patient briefly exercised for 2 minutes prior to Lexiscan and then had to stop due to shortness of breath, EKG was nondiagnostic d ue to failure to reach at least 80% of p redicted heart rate, no wall motion abnormalities, no evidence of ischemia. Eventually, echocardiogram should be co nsidered, will need to have pulmonary pressures measured. On previous echocardiogram 2015 he has moderate pulmonary hypertension with a PA pressure of 40 mmHg. Th is certainly could have worsened over ti me, which could also account for his shortness of breath. Patient is aware that I am leaving the practice in July, he is going to follow- up with Dr. Merchant in October. I am making the arrangements Addendum:Overnight oximetry through 05/28 shows on BiPAP on room air that the patient spent 0minutes: 16 seconds below the saturation of 88%. Based on this, he does not need supplemental oxygen at night 2. Obstructive sleep apnea syndr ome His sleep apnea is fairly well -controlled currently on auto BiPAP 25/16/4 cmH2O with excellent compliance, He has severe obstructive sleep apnea wi th an AHI of 65/h. Overnight oximetry on room air on BiPAP will be carried out as he has moderate pulmonary hypertension and left-sided hemidiaphragmatic paralysis. Order was sent to [facility] He may need supplemental oxygen at night . Unfortunately the previous testing did n ot have any data, we are now trying to reschedule him for another overnight oximetry If he is not a candidate for diaphragmat ic plication and his condition worsens, he may need to be considered on BiPAP with backup rate or trilogy ventilator. I will follow with him on his BiPAP and the related issues in 2 months. BiPAP compliance download ? shows more than 4 hours per night compliance of 100%, 90th percentile pressure 23/19, average residual AHI 1.3/h. no mask leak, on auto BiPAP Discussion Note 30+ minutes was spent chart preppin g, reviewing history and counseling and providing medical care. Patient educational handouts: No information available. Plan of Care Reminders Provider Appointments Return to on or around [place], Office 02/20/2021 [facility] Lab None ? ? recorded. Referral None ? ? recorded. Procedures None ? ? recorded. Surgeries None ? ? recorded. Imaging None ? ? recorded. Medications Name Start Date ? ? acetaminophen 500 mg tablet ? TK 2 CAPLETS PO Q 8 H PRN FOR PAIN aspirin 81 mg tablet,delayed release ? TK 1 T PO BID BD Luer-Soumya Syringe 3 mL 22 gauge x 1 ? USE DIRECTED TWICE PER MONTH celecoxib 200 mg capsule ? TK 1 C PO BID PRF PAIN cyclobenzaprine 10 mg tablet ? TAKE ONE TABLET BY MOUTH AT BEDTIME NEEDED FOR MUS TAN SPASM AND PAIN diazepam 5 mg tablet ? TAKE 1 TABLET BY MOUTH AT LEAST 30 MINUTES PRIOR TO M RI MAY REPEAT NEEDED epinephrine 0.3 mg/0.3 mL injection, auto-injector ? INJECT 0.3 MILLILITER (0.3 MG) BY INTRA MUSCULAR ROUTE ONCE NEEDED FOR ANAPHYLAXIS fluticasone 100 mcg-salmeterol 50 mcg/dose blistr powd r for ? inhalation gabapentin 300 mg capsule ? TK 1 C PO QHS hydrochlorothiazide ? 25mg daily hydrochlorothiazide 25 mg tablet ? TAKE TWO TABLETS BY MOUTH EVERY DAY hydromorphone 2 mg tablet ? TK 1 T PO Q 4 H PRF PAIN lorazepam 1 mg tablet ? TAKE ONE TABLET BY MOUTH ONCE 1 HOUR PRIOR TO MRI metformin 1,000 mg tablet ? TAKE ONE TABLET BY MOUTH TWICE A DAY metformin 500 mg tablet ? Take 1 tablet twice a day by oral route. methocarbamol 500 mg tablet ? TAKE ONE TABLET BY MOUTH AT BEDTIME metoprolol succinate ER 25 mg tablet,extended release 24 hr ? TAKE ONE TABLET BY MOUTH EVERY DAY naproxen sodium ? 220mg BID pantoprazole 40 mg tablet,delayed release ? TK 1 T PO D penicillin V potassium 500 mg tablet ? TAKE ONE TABLET BY MOUTH FOUR TIMES A DAY FOR 7 DAYS prednisone 20 mg tablet ? TAKE TWO TABLETS BY MOUTH EVERY DAY FOR 7 DAYS FOR SH OULDER/NECK PAIN spironolactone 25 mg tablet ? TAKE ONE TABLET BY MOUTH EVERY DAY tamsulosin ? 0.4mg daily tamsulosin 0.4 mg capsule ? TAKE TWO CAPSULES BY MOUTH AT BEDTIME testosterone cypionate 200 mg/mL intramuscular oil ? INJECT 150 MG 0.75 ML INTRAMUSCULARLY EVERY 2 WEEKS DOSE INCREASE 09/01/2018 tramadol 50 mg tablet ? TAKE ONE TABLET BY MOUTH TWICE A DAY NEEDED FOR PA IN triamcinolone acetonide ? 0.5% BID Medications Administered None recorded. Vitals Height Weight BMI Blood Pressure 5 ft 9 in 132 kg 43 kg/m2 148/84 mm[Hg] Results Lab Results None recorded. Allergies Code Code System Name Reaction Severity Onset Abdulaziz Inhibitors ? ? ? 949303 RxNorm Ezetimibe ? ? ? 56271 RxNorm Lisinopril ? ? ? 06625 RxNorm Losartan ? ? ? 7804 RxNorm Oxycodone ? ? ? 631791 RxNorm Red Yeast Rice ? ? ? 900581 RxNorm Zetia ? ? ? Notes: seafood Problems Name Status Onset Date Source ? [...] ? History Dyspnea Active ? History Procedures None recorded. Vaccine List Vaccine Type influenza, injectable, quadrivalent 02/28/2019 influenza, trivalent, adjuvanted 01/16/2020 pneumococcal conjugate PCV 13 08/24/2017 pneumococcal polysaccharide PPV23 08/30/2018 Td, adsorbed, preservative free, adult u se, Lf unspecified 08/24/2017 Tdap 06/13/2008 Social History Tobacco Smoking Status Never Smoker Exposure to Asbestos Y Notes: maybe as a child Exposure to Chemicals or Toxins Y Are you currently employed? Y Blind or serious difficulty seeing Y Not es: reading glasses Most Recent Tobacco Use Screening 11/28/2017 Exposure to Silica Y Alcohol intake Notes: 1-2 cans n ightly Live alone or with others? with others Notes: wif e Animal exposure? 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 N Language Difficulties No Deaf or serious difficulty hearing Y Not es: has aids does not use them Hard of hearing or deaf in one or N Note s: has hearing aids does both ears? 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 Deaf or serious Yes difficulty hearing? Past Encounters 05/23/2020 Paralysis of Diaphragm; Obstructive Slee p Apnea Syndrome Marion Joseph MD: [address] [place] [address] Dr fel[address] [phone], Ph. History of Present Illness Note: <p>70 year old man , who comes in for follow-up on dyspnea. </p><p>He has underlying obstructive sleep apnea as well as paralyzed left hemidiaphragm. The patient had a visit withDr. Massimo Morse [place] [facility] [place], I reviewed his notes. He felt that the patient's BMI being 40 is an absolute cord trial indication for diaphragmatic plication and even a BMIas high as 35 would be a relative contraindication. Therefore recommended weight loss and once the patient's BMI is below 35, he can be reconsidered.
</p><p>Patient is using his BiPAP machine at night and is very happy with the new pressure setting, his overnight oximetry on room air on BiPAP did not have any data, we are trying to reschedule the test
</p><p>
</p><p>His breathing is unchanged
</p><p>
</p&g t;<p>
</p><p>He says that the shortness of breath started about 3 years ago and was getting progressively worse, in the last 6 months it has not progressed all that much. He did not have any preceding event of respiratory infection or inhalation injury.</p><p>He has very severe obstructive sleep apnea, he was on auto CPAP 16–20 cmH2O which was recently switched to auto BiPAP . With that he felt that he did not have enough pressure at the beginningof the night, so he went back on his CPAP machine. He saw Juliet Medel NP yesterday, and they changed his BiPAP settings to , and last night he had a great sleep, he now finally feels that the pressure is enough.</p><p>Since the last visit here we switched him from Advair to Stiolto, initially he felt it was decreasing somewhat of his shortness of breath but lately it has not helped so he went back on Advair 100/50, 1 puff twice a day. As of the last visit with me on 02/22/2020,we stopped the Advair altogether.</p><p>
</p><p>No GERD or postnasal drip. He does not have chest pain or chest tightness he just feels that he cannot get enough air.</p><p>He gained about 20 pounds in the last 3 years but the shortness of breath started prior to that. He quantifies his exercise tolerance now is a half a mile on a flat surface and 2 flights of stairs up.</p><p>He has lower extremity edema especially on the left after a melanoma was resected and he had inguinal lymph node resection as well. This was 7 years ago, he did not need any chemotherapy, he has no recurrence.</p><p>
</p><p>No fevers, chills, night sweats, loss of appetite</p><p>
</p><p>Social history former smoker,<span> He smoked 1 pack every 2 weeks for 10 years and quit in 2007. Overall less than 5-pack-year smoking history. 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 There is some mold in the haylage. 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
</p><p>Family history, no lung dis ease in the family, no asthma, tuberculosis, lung cancer</p> Review of Systems ? Notes: <p>As above
</p> Physical Exam ? Notes: <p>elderly, obese man in no acute distress</p><div>
</div><div>Chest: Bilateral air entry with tan ar breath sounds</div><div>
</div><div>No wheezing, crepitations or cr ackles, he has somewhat shortened expiratory phase no wheezing.</div><div>
< /div><div>Heart: S1-S2 normal</div><div>
</di v><div>Extremities: NO clubbing, bilateral +1 pitting pedal edema no cyano sis</div><div>
</div><div>Neuro: Alert Oriented ?3</div><div>
</ div><div>Psych: Mood compensated
</div>
== END 2020-06-17 09:13 ==
PROVIDERS: PCP Family Medicine; Visit Provider Family Medicine
DX: M25.572 Pain in left ankle and joints of left foot (principal); S82.65XA Nondisplaced fracture of lateral malleolus of left fibula, initial encounter for closed fracture; M79.89 Other specified soft tissue disorders
CPT/HCPCS: 73610

== ENCOUNTER → 2020-06-18 10:57 | Outpatient (BNVA) | payer MEDICARE, MEDICAID, SELFPAY | PROVIDERS: PCP Family Medicine; Referring Provider Family Medicine; Visit Provider Physician Assistant | DX: S82.402A Unspecified fracture of shaft of left fibula, initial encounter for closed fracture (principal); W00.0XXA Fall on same level due to ice and snow, initial encounter | CPT/HCPCS: 99213 ==

== ENCOUNTER 2020-07-10 11:01 | Outpatient (CLI) | payer MEDICARE, MEDICAID, SELFPAY ==
--- NOTE | 2020-07-10 09:44 | DI.RAD_ITS ---
EXAM: XR ANKLE LT COMPLETE CLINICAL HISTORY: L fib fx. TECHNIQUE: 2D digital imaging was performed. COMPARISON: CR XR ANKLE LT COMPLETE from 06/17/2020 FINDINGS: There has been further healing at the distal fibular fracture site. Fracture lines are visible but l ess so. No displacement. No widening of the mortise. Multiple calcifications subjacent to the medi al malleolus are again noted which are probably accessory ossicles. On the lateral view there is bon y excrescence off of the anterior tibial plafond, probably causing element of impingement. This is s lightly more evident than previous. Probably related to slight differences in imaging position techn ique. There is no osseous talar coalition. IMPRESSION: DATA REPOSITORY: RADIATION DOSE DELIVERED:
== END 2020-07-10 11:02 | disposition home or self-care (01) ==
LOC: DIORS 11:05
PROVIDERS: PCP Family Medicine; Referring Provider Family Medicine; Visit Provider Physician Assistant
DX: S82.402D Unspecified fracture of shaft of left fibula, subsequent encounter for closed fracture with routine healing (principal); X58.XXXD Exposure to other specified factors, subsequent encounter
CPT/HCPCS: 99213; 73610

== ENCOUNTER 2020-08-21 15:36 | Outpatient (CLI) | payer MEDICARE, MEDICAID, SELFPAY ==
--- NOTE | 2020-08-21 11:15 | DI.RAD_ITS ---
Exam(s) XR KNEE RT 2V AP,LAT EXAM: XR KNEE RT 2V AP,LAT CLINICAL HISTORY: JOHNNIE LEO. TECHNIQUE: 2D digital imaging was performed. COMPARISON: CR XR KNEE RT 3V AP,LAT,SELENA from 04/05/2019 FINDINGS: There are stable postsurgical changes of a right total knee replacement. The orthopedic hardware ayush ears intact. No acute osseous fracture or dislocation. Enthesophytes are seen at the superior and i nferior aspect of the anterior patella. There is a joint effusion. Mild atherosclerosis is present. IMPRESSION: Right TKR. Joint effusion. DATA REPOSITORY: RADIATION DOSE DELIVERED:
--- NOTE | 2020-08-21 11:15 | DI.RAD_ITS ---
Exam(s) XR KNEE LT 4V+ EXAM: XR KNEE LT 4V+ CLINICAL HISTORY: KNEE PAIN. TECHNIQUE: 2D digital imaging was performed. COMPARISON: No exams were available for comparison FINDINGS: There is moderate narrowing of the medial femoral tibial joint. Mild spurring is seen at the posteri or patella. There enthesophytes in the superior and inferior patella anteriorly. No acute fracture or dislocation. No joint effusion. Mild atherosclerosis. IMPRESSION: Mild degenerative changes of the left knee. DATA REPOSITORY: RADIATION DOSE DELIVERED:
== END 2020-08-21 15:37 | disposition home or self-care (01) ==
LOC: DIORS 15:36
PROVIDERS: PCP Family Medicine; Referring Provider Family Medicine; Visit Provider Student in an Organized Health Care Education/Training Program
DX: M25.562 Pain in left knee (principal); M25.561 Pain in right knee; Z96.651 Presence of right artificial knee joint; M17.12 Unilateral primary osteoarthritis, left knee; M25.461 Effusion, right knee
CPT/HCPCS: 20610; 99213; 73560; 73564; J1040

== ENCOUNTER 2020-09-04 01:49 | Outpatient (CLI) | payer MEDICARE, SELFPAY ==
[2020-09-04 13:03] LABS: Anion Gap 9.6 mmol/L (3-11); BUN 26 mg/dL (7-18); CO2 27.4 mmol/L (21.0-32.0); CREATININE 1.4 mg/dL (0.70-1.30); Calcium 8.4 mg/dL (8.5-10.1); Chloride 106 mmol/L (98-107); Cholesterol 170 mg/dL (<200); Glucose 143 mg/dL (74-106); HDL Cholesterol 18 mg/dL (40-60); Potassium 4.3 mmol/L (3.5-5.1); Sodium 143 mmol/L (136-145); Triglyceride 402 mg/dL (<150)
[2020-09-04 13:14] LABS: LDL CHOLESTEROL 87 mg/dL (<100)
== END 2020-09-04 01:50 | disposition home or self-care (01) ==
PROVIDERS: PCP Family Medicine; Visit Provider Family Medicine
DX: E87.1 Hypo-osmolality and hyponatremia (principal); E78.5 Hyperlipidemia, unspecified
CPT/HCPCS: 36415; 80048; 80061; 83721

== ENCOUNTER → 2020-09-09 13:13 | Outpatient (BNVA) | payer MEDICARE, MEDICAID, SELFPAY | PROVIDERS: PCP Family Medicine; Referring Provider Family Medicine; Visit Provider Student in an Organized Health Care Education/Training Program | DX: M96.89 Other intraoperative and postprocedural complications and disorders of the musculoskeletal system (principal); Z98.890 Other specified postprocedural states; I10 Essential (primary) hypertension | CPT/HCPCS: 99214 ==

== ENCOUNTER 2020-12-10 08:41 | Outpatient (CLI) | payer MEDICARE, MEDICAID, SELFPAY ==
--- NOTE | 2020-12-10 08:50 | DI.RAD_ITS ---
Exam(s) XR SHOULDER RT COMPLETE 2+V EXAM: XR SHOULDER RT COMPLETE 2+V CLINICAL HISTORY: rotator cuff repair f/u. TECHNIQUE: 2D digital imaging was performed. COMPARISON: CR XR SHOULDER RT COMPLETE 2+V from 01/07/2020 FINDINGS: Again noted is evidence of prior rotator cuff surgery. Single fastener device noted in the humeral h ead. No evidence of fracture nor dislocation. Moderate degenerative changes in the glenohumeral gracia nt noted. Mild degenerative changes in the AC joint. There is diminution of the subacromial space. This may indicate significant rotator cuff pathology. IMPRESSION: DATA REPOSITORY: RADIATION DOSE DELIVERED:
== END 2020-12-10 08:42 | disposition home or self-care (01) ==
LOC: DIORS 08:42
PROVIDERS: PCP Family Medicine; Referring Provider Family Medicine; Visit Provider Student in an Organized Health Care Education/Training Program
DX: M96.89 Other intraoperative and postprocedural complications and disorders of the musculoskeletal system (principal); Z47.89 Encounter for other orthopedic aftercare
CPT/HCPCS: 99212; 99213; 73030

== ENCOUNTER 2021-08-13 00:44 | Emergency (ER) | payer MEDICARE, SELFPAY ==
[2021-08-13] VITALS (14 sets, daily range): BP systolic 132–169; BP diastolic 73–94; PULSE 70–92; RESP 18–20; TEMP 36.6; O2SAT 91–98
--- NOTE | 2021-08-13 01:00 | DI.CT_ITS ---
Exam(s) CT ABDOMEN PELVIS WO EXAM: CT ABDOMEN PELVIS WO CLINICAL HISTORY: left lower abdomen and back pain. TECHNIQUE: Imaging Protocol: Axial computed tomography images with coronal and sagittal reformatted images were created and reviewed. COMPARISON: CT CHEST WITH CONTRAST from 02/18/[address] CHEST WO from 12/28/2019 FINDINGS: ABDOMEN: Lung Bases: There is an infiltrate or scarring in the left lower lobe. Liver: There is diffuse fatty infiltration of the liver. No measurable mass. Gallbladder and biliary tract: No radiodense calculus or biliary ductal dilation. Pancreas: Normal density, no abnormal calcifications or inflammatory process. Spleen: Normal. Kidneys: Normal size, contour and axis.There is mild left hydroureteronephrosis. There appears to be a tiny 2 mm calcification in the distal ureter. (Series 5, image 763). No masses seen. Adrenal glands: There is again seen calcification of the limbs of the right adrenal gland. The left adrenal gland is unremarkable. Lymph nodes: Within normal limits. Abdominal Aorta: There is a 5.4 cm infrarenal abdominal aortic aneurysm. Atherosclerosis is present. PELVIS: Bladder:Symmetric distention, no gross wall thickening. Bowel: No obstruction or bowel wall thickening. No evidence of appendicitis. Peritoneal cavity: No ascites, collection or mesenteric inflammatory response. No free air. Reproductive organs: The prostate gland is enlarged. Bones: Within normal limits. Soft Tissues: There are bilateral fat containing inguinal hernias. There is a small fat containing u mbilical hernia. IMPRESSION: Faint 2 mm distal left ureteral calculus causing mild hydronephrosis. (Series 5, image 763). RADIATION DOSE DELIVERED: 1,504mGy.cm Total DLP DATA REPOSITORY: All CT scans at this facility are submitted to the National Radiology Data Registry (NRDR) Dose Index Registry (DIR) with the [employer] (A[employer]). RADIATION OPTIMIZATION: All CT scans at this facility use at least one of these dose optimization te chniques: automated exposure control; mA and/or kV adjustment per patient size (includes targeted exa ms where dose is matched to clinical indication); or iterative reconstruction.
[2021-08-13 01:08] LABS: Abs Immature Grans 0.05 10^3/uL (0.0-0.06); Absolute Basophil Count 0.05 10^3/uL (0.0-0.2); Absolute Lymphocyte Count 2.34 10^3/uL (1.2-3.4); Absolute Monocyte Count 0.84 10^3/uL (0.1-0.8); Absolute Neutrophil Count 5.33 10^3/uL (1.2-6.7); Basophils % 0.6; Eosinophils % 2.3; HCT 41.3 % (40.0-50.0); HGB 13.8 g/dL (13.5-17.5); Immature Grans % 0.6; Lymphocytes % 26.6; MCH 32.2 pg (27.0-33.0); MCHC 33.4 % (32.0-36.0); MCV 96 fL (80-95); MPV 9.9 fL (8.0-11.0); Monocytes % 9.5; Neutrophils % 60.4; Platelet Count 238 10^3/uL (130-400); RBC 4.29 10^6/uL (4.36-5.78); RDW 13.3 % (11.8-14.1); RDW-SD 47.3 fL; WBC 8.81 10^3/uL (4.4-10.8)
[2021-08-13] MEDS: Ketorolac 15 MG/ML VIAL IVP (01:09)
[2021-08-13] MEDS: Normal Saline 1,000 ML 1000 ML IV (01:09)
--- NOTE | 2021-08-13 01:09 | ED.GENADUL_ITS ---
Discharge Plan Disposition Patient Disposition: HOME Condition: Stable Discharge Details Clinical Impression: Kidney stone, Abdominal pain, AAA (abdominal aortic aneurysm) Primary Care Provider: Nigel Emerson ED Provider: Ramos Delvalle Home Meds and New Rx's Prescriptions: New oxycodone 5 mg tablet 5 mg PO Q8H PRN (Reason: pain) Qty: 10 0RF Continued methocarbamol 500 mg tablet 500 mg PO QHS Qty: 7 0RF Rx Instructions: take one pill at night prior to bed. tamsulosin 0.4 mg capsule 0.8 mg PO HS Qty: 180 4RF hydrochlorothiazide 25 mg tablet 50 mg PO DAILY Qty: 180 3RF (DME) syringe with needle 3 mL 22 gauge x 1 syringe See Dose Instructions .ROUTE .MEDSUPPLY Qty: 6 3RF Dose Instruction: As directed Label Comments: pt. states he took it two weeks ago Rx Instructions: As directed twice/month metoprolol succinate 25 mg tablet extended release 24 hr 12.5 mg PO DAILY Qty: 45 3RF metformin 1,000 mg tablet 1,000 mg PO BID Qty: 180 3RF spironolactone [Aldactone] 25 mg tablet 25 mg PO DAILY Qty: 90 3RF gabapentin 300 mg capsule 300 mg PO QHS Qty: 30 2RF prednisone 20 mg tablet 40 mg PO DAILY PRN (Reason: shoulder/neck pain) Qty: 14 0RF C-PAP Rx Instructions: [facility] [place] sleep lab, sleep apnea (DME) Inhaler, Assist Devices [Aerochamber Mini] 1 EACH spacer 1 ea Miscellaneous DAILY Qty: 1 0RF epinephrine [EpiPen 2-Rahul] 0.3 MG/0.3 ML auto-injector 0.3 mg IJ PRN Qty: 1 0RF Incruse Ellipta 62.5 mcg/actuation blister with device 1 inh inhalation DAILY Qty: 30 2RF acetaminophen 500 mg tablet 1,000 mg PO Q8H PRN (Reason: pain) Qty: 90 3RF Discharge Instructions Instructions: Kidney Stones (ED) Additional Instructions: You have a small kidney stone that will likely pass on it's own follow up with your primary care provider within 1 week and advise them you have an abdominal aortic aneurysm. They may either perform yearly imaging to monitor it or refer you to vascular surgery you should be contacted with an appointment for a urologist if you feel more ill, have severe worsening pain or fevers return to the emergency department Medical Decision Making 71 yo male with multiple medical problems and intermittent episodes of back pain and was treated with prednisone for this earlier this month, comes in with 2 days of intermittent left lower abdomen pain that sometimes radiates to the left lower back. Denies any severe pain, no fevers, vomit, chest pain, dyspnea. No dysuria, no testicle pain or swelling. He arrives appearing well in no distress. He has no upper abdomen tenderness on exam, no rlq and has mild llq tenderness with deep palpation to the left lower abdomen. No cva tenderness. His symptoms could be due to diverticulitis and possible kidney stone. His exam is reassuring against entities such as mesenteric ischemia and given IV contrast shortage do not feel IV contrast would be of benefit, will obtain labs including cbc, cmp, lipase and noncontrast ct to evaluate for diverticulitis vs kidney stone. CT confirms distal left 2mm kidney stone, he remains stable, awaiting UA. Ua shows hematuria no evidence of infection. He is feeling significantly better and would like to be discharged, given reassuring workup with distal small stone that will likely pass feel this is reasonable.HE states he is not truly allergic to hydrocodone or oxycodone and has tolerated them but can't take them for a week or more and that's when he experiences side effects. Will provide short course of oxycodone and advised can also use prn ibuprofen if needed as well as tylenol. Placed on f/u list to see urology as well lucio and return precautions given. He was incidentally found to have a 5.3cm AAA without rupture. I discussed this with him and he understands he needs to f/u with his pcp and have monitoring of this as an outpatient. Differential Diagnosis Differential Diagnosis: diverticulitis, kidney stone, lumbago Medical Records Medical records reviewed: Yes I reviewed the patient's medical records. Imaging Data Radiologic Study: Attestation: I personally reviewed and interpreted this imaging study as follows: Imaging: CT Scan Radiologist's impression: IMPRESSION: Minimal/mild left hydroureteronephrosis secondary to a faint 2 mm distal left ureteral calculus 5.3 cm abdominal aortic aneurysm without rupture Lab Data Lab results reviewed: Yes I reviewed the patient's lab results. HPI General Mode of arrival: ambulatory . Date/Time Provider Initiated Documentation: 08/13/21 00:47 . Limitations to Documentation: no limitations . Information obtained by: patient . History of Present Illness 71 year old M presents to the emergency department with the chief complaint of abdomen pain, described as moderate, Quality is described as aching, and is localized to the abdomen. Patient reports radiation to back. Patient started experiencing this day(s) (2) and it has been intermittent. No exacerbating factors reported . Patient notes no other symptoms.. Related Data Home Medications Medication Instructions Recorded Confirmed C-Pap 07/31/12 07/22/21 epinephrine 0.3 mg/0.3 mL 0.3 mg (0.3 mL) IJ PRN #1 mL 08/24/17 07/22/21 injection, auto-injector (EpiPen 2-Rahul) acetaminophen 500 mg tablet 1,000 mg PO Q8H PRN pain #90 tabs 02/27/19 07/22/21 syringe with needle 3 mL 22 gauge #6 ea 04/04/19 07/22/21 x 1 methocarbamol 500 mg tablet 500 mg PO QHS #7 tabs 12/27/19 07/22/21 metformin 1,000 mg tablet 1,000 mg PO BID #180 tabs 09/02/20 07/22/21 metoprolol succinate 25 mg 12.5 mg PO DAILY #45 tabs 09/02/20 07/22/21 tablet,extended release 24 hr spironolactone 25 mg tablet 25 mg PO DAILY #90 tabs 09/02/20 07/22/21 (Aldactone) hydrochlorothiazide 25 mg tablet 50 mg PO DAILY #180 tab-caps 03/03/21 07/22/21 tamsulosin 0.4 mg capsule 0.8 mg PO HS #180 tab-caps 03/03/21 07/22/21 gabapentin 300 mg capsule 300 mg PO QHS #30 caps 06/17/21 07/22/21 prednisone 20 mg tablet 40 mg PO DAILY PRN shoulder/neck 07/22/21 07/22/21 pain #14 tabs umeclidinium 62.5 mcg/actuation 1 inh inhalation DAILY #30 ea 07/22/21 blister powder for inhalation (Incruse Ellipta) oxycodone 5 mg tablet 5 mg PO Q8H PRN pain #10 tabs 08/13/21 Previous Rx's Medication Instructions Recorded epinephrine 0.3 mg/0.3 mL 0.3 mg (0.3 mL) IJ PRN #1 mL 08/24/17 injection, auto-injector (EpiPen 2-Rahul) acetaminophen 500 mg tablet 1,000 mg PO Q8H PRN pain #90 tabs 02/27/19 syringe with needle 3 mL 22 gauge #6 ea 04/04/19 x 1 methocarbamol 500 mg tablet 500 mg PO QHS #7 tabs 12/27/19 metformin 1,000 mg tablet 1,000 mg PO BID #180 tabs 09/02/20 metoprolol succinate 25 mg 12.5 mg PO DAILY #45 tabs 09/02/20 tablet,extended release 24 hr spironolactone 25 mg tablet 25 mg PO DAILY #90 tabs 09/02/20 (Aldactone) hydrochlorothiazide 25 mg tablet 50 mg PO DAILY #180 tab-caps 03/03/21 tamsulosin 0.4 mg capsule 0.8 mg PO HS #180 tab-caps 03/03/21 gabapentin 300 mg capsule 300 mg PO QHS #30 caps 06/17/21 prednisone 20 mg tablet 40 mg PO DAILY PRN shoulder/neck 07/22/21 pain #14 tabs umeclidinium 62.5 mcg/actuation 1 inh inhalation DAILY #30 ea 07/22/21 blister powder for inhalation (Incruse Ellipta) oxycodone 5 mg tablet 5 mg PO Q8H PRN pain #10 tabs 08/13/21 Allergies Allergy/AdvReac Type Severity Reaction Status Date / Time SARAH Inhibitors Allergy Unknown Verified 08/13/21 00:56 spironolactone AdvReac Intermediate fatigue Verified 08/13/21 00:56 amlodipine AdvReac Swelling/Ed Verified 08/13/21 00:56 robles ezetimibe AdvReac myalgias Verified 08/13/21 00:56 hydrocodone AdvReac Hallucinati Verified 08/13/21 00:56 ons lisinopril AdvReac cough Verified 08/13/21 00:56 losartan AdvReac fatigue Verified 08/13/21 00:56 oxycodone AdvReac Depression Verified 08/13/21 00:56 clams SOB ER Allergy Severe SOB ER Uncoded 08/13/21 00:56 red yeast rice AdvReac Intermediate Uncoded 08/13/21 00:56 General Stated Complaint: Abd Prob THIAGO: 3 Review of Systems All systems reviewed & are unremarkable except as noted in HPI and below Constitutional Constitutional: Denies chills, Denies fever(s) and Denies weakness Cardiovascular Cardiovascular: Denies chest pain and Denies dyspnea Respiratory Respiratory: Denies cough and Denies dyspnea Gastrointestinal Gastrointestinal: Denies vomiting Genitourinary Genitourinary: Denies dysuria Integumentary/Breasts Skin/Breast: Denies rash Neurologic Neurologic: Denies weakness PFSH All Active Problems (Updated 09/09/20 @ 14:09 by JEANINE Poole) Kidney stone (Chronic) Abdominal pain (Acute) AAA (abdominal aortic aneurysm) (Acute) SOB (shortness of breath) (Acute) Type 2 diabetes mellitus with diabetic neuropathy, unspecified (Acute) Diabetes mellitus (Acute) Failure of rotator cuff repair (Acute) History of repair of right rotator cuff (Acute 02/2009) History of repair of left rotator cuff (Acute 04/2005) Osteoarthritis of left knee (Acute) Fibula fracture (Acute) Left Hypogonadism (Acute) Neck pain, musculoskeletal (Acute) Shoulder pain, acute (Acute) Hyperplastic colon polyp (Acute) Elevated blood pressure reading (Acute) Tubular adenoma (Acute) 01/24/15 History of tobacco use (Acute) History of esophagogastroduodenoscopy (Acute) Full thickness rotator cuff tear (Acute) Fatigue (Acute) better w/ T replacement recheck levels Atypical chest pain (Acute) Right knee DJD (Chronic) Synvisc injection: 09/18/2018 Ingrown toenail of right foot (Acute) advised to not cut nails too short Screening for colon cancer (Acute) MARCUS (dyspnea on exertion) (Acute) History of total right knee replacement (TKR) (Acute 02/27/19) Peripheral edema (Acute) likely dependency due to morbid obesity Screening for colorectal cancer (Chronic) Benign prostatic hyperplasia (Chronic) 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 Essential hypertension (Acute) cough on SARAH-I Gastroesophageal reflux disease (Acute) small hiatal hernia EGD 03/2004 Hearing loss (Acute) bilateral Hyperlipidemia (Acute 07/10/12) intolerant to statins and Zetia Increased body mass index (Acute) Lactose intolerance (Chronic) possible Malignant melanoma of skin of lower limb (Acute 05/23/13) [facility] [place]; LEFT LEG; T3ANO STAGE 2A Obstructive sleep apnea (adult) (pediatric) (Acute) SEVERE with good response to CPAP Onychomycosis (Acute) Peyronie's disease (Acute) Status post arthroscopy of right knee (Chronic) Partial medial and lateral meniscectomies DOS: 04/06/18 Repeat surgery: 06/02/2018 Low testosterone (Chronic) Hypertension (Chronic) H/O shoulder surgery (Chronic) bilateral Medical History Benign prostatic hyperplasia Diabetes mellitus 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 MARCUS (dyspnea on exertion) Essential hypertension cough on SARAH-I Gastroesophageal reflux disease small hiatal hernia EGD 03/2004 Gout Hearing loss bilateral Hyperlipidemia (07/10/12) intolerant to statins and Zetia Hypertension Hypogonadism Increased body mass index Lactose intolerance possible Low testosterone Malignant melanoma of skin of lower limb (05/23/13) [facility]; LEFT LEG; T3ANO STAGE 2A Obstructive sleep apnea (adult) (pediatric) SEVERE with good response to CPAP Onychomycosis Osteoarthritis of left knee Peripheral edema likely dependency due to morbid obesity Peyronie's disease Screening for colorectal cancer Surgical History Colonoscopy - [facility] (04/15/04) Rare tics, no polyps;Small HH & fundic gland polyp COLONOSCOPY W/MAC (01/24/15) DR. ULICES EVANS EGD - [facility] (04/15/04) H/O shoulder surgery bilateral History of hernia repair History of total right knee replacement (TKR) (02/27/19) Rotator Cuff Repair (~2005) left and right Status post arthroscopy of right knee Partial medial and lateral meniscectomies DOS: 04/06/18 Repeat surgery: 06/02/2018 Family History Mother , 78 Arthritis Father , 82 Alzheimer disease Sister No problems noted. Sister No problems noted. Brother No problems noted. Brother No problems noted. Maternal Grandfather , 83 No problems noted. Paternal Grandfather , 80 No problems noted. Maternal Grandmother , 74 No problems noted. Paternal Grandmother , 80 No problems noted. Son No problems noted. Daughter Epilepsy Social History (Updated 09/03/20 @ 15:37 by Sharon Rubio) Smoking/Tobacco Use Status: Former Tobacco Use tobacco type: cigarettes Quit Date: 03/21/07 Tobacco: How many years used: 10 Second Hand Exposure: Yes Smoking risk assessment performed?: Yes Alcohol Intake: current Alcohol Intake frequency: a few times a week Alcohol type: beer Drug use: Never Substance use type: does not use Counseling given: No Details: alcohol:t-3, one beer Caregiver/Support person: No Household members: spouse Housing: house Communication Needs: Hard of Hearing Do you need help understanding health information?: Often Pets and animals: No Sexually active: Yes Do you think of yourself as: straight/heterosexual Current gender identity: male What is your relationship status?: How often do you talk on the phone with friends or family?: three or more times per week How often do you get together with friends or relatives?: once per week How often do you attend christianity or jehovah's witness services?: decline to answer Do you belong to any clubs or organized social groups?: no Panel score (0-1 are the most socially isolated patients): 2 Mariely/Buddhist: None Special mariely needs: No Seatbelt use: sometimes Drive intox or ride w/intox 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 owner 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: No Do you feel safe at home: Yes Do you feel safe in your relationship?: Yes Exam Const General: no acute distress Orientation: alert HENMT Head: normal to inspection Ears: external ears normal General nose exam: external nose normal Mouth: moist mucous membranes Eyes General: appearance normal, both eyes and all related structures Neck Neck: normal visual inspection Resp Effort & Inspection: normal respiratory effort and able to speak in complete sentences Cardio Rate: regular rate GI Palpation: soft and tender Skin General skin exam: no rashes or lesions noted Neuro General: patient alert and patient oriented x3 Extrem General: normal to inspection Psych Mental Status: mental status grossly normal Course Vital Signs Vital signs: Vital Signs Temperature 36.6 C 08/13/21 00:50 Pulse 92 H 08/13/21 00:50 Respiratory Rate 20 08/13/21 00:50 Blood Pressure 169/94 H 08/13/21 00:50 Pulse Oximetry 98 08/13/21 00:50 Temperature 36.6 C 08/13/21 00:50 Temperature Source Skin 08/13/21 00:50 Pulse 92 H 08/13/21 00:50 Respiratory Rate 20 08/13/21 00:50 Respiratory Effort 08/13/21 00:54 Blood Pressure 169/94 H 08/13/21 00:50 Blood Pressure Position Sitting 08/13/21 00:50 Pulse Oximetry 98 08/13/21 00:50 Oxygen Delivery Method Room Air 08/13/21 00:50 Oxygen Flow Rate 0 08/13/21 00:50 Pain Level 8 08/13/21 00:50
[2021-08-13 01:21] LABS: ALT 35 U/L (16-63); Albumin 3.7 g/dL (3.4-5.0); Alkaline Phosphatase 80 U/L (46-116); Anion Gap 9.4 mmol/L (3-11); BUN 35 mg/dL (7-18); Bilirubin, Direct < 0.1 mg/dL (0.0-0.2); Bilirubin, Total 0.3 mg/dL (0.2-1.0); CO2 26.6 mmol/L (21.0-32.0); CREATININE 1.7 mg/dL (0.70-1.30); Calcium 8.5 mg/dL (8.5-10.1); Chloride 102 mmol/L (98-107); Estimated GFR 40.16 (mL/min/1.73m2); Glucose 176 mg/dL (74-106); Lipase 159 U/L (73-393); Magnesium 1.7 mg/dL (1.8-2.4); Potassium 3.9 mmol/L (3.5-5.1); Sodium 138 mmol/L (136-145)
[2021-08-13 01:40] LABS: AST 15 U/L (15-37)
--- NOTE | 2021-08-13 01:47 | DI.VRAD_ITS ---
PROCEDURE INFORMATION: Exam: CT Abdomen And Pelvis Without Contrast Exam date and time: 08/13/2021 1:32 AM Age: 71 years old Clinical indication: Abdominal pain; Localized; Left lower quadrant (llq); Additional info: Llq pain TECHNIQUE: Imaging protocol: Computed tomography of the abdomen and pelvis without contrast. Radiation optimization: All CT scans at this facility use at least one of these dose optimization techniques: automated exposure control; mA and/or kV adjustment per patient size (includes targeted exams where dose is matched to clinical indication); or iterative reconstruction. COMPARISON: CT CHEST WO 12/28/2019 9:08 AM FINDINGS: Minimal left basilar subsegmental atelectasis versus scarring Liver: Hepatomegaly and diffuse fatty infiltration. No mass. Gallbladder and bile ducts: Normal. No calcified stones. No ductal dilation. Pancreas: Normal. No ductal dilation. Spleen: Normal. No splenomegaly. Adrenal glands: Right adrenal calcifications may be related to prior hemorrhage Kidneys and ureters: Left renal peripelvic cysts. Minimal/mild left hydroureteronephrosis. Faint distal left ureteral calculus coronal image 80 measuring 2 mm noted Stomach and bowel: Unremarkable. No obstruction. No mucosal thickening. Appendix: No evidence of appendicitis. Intraperitoneal space: Unremarkable. No free air. No significant fluid collection. Vasculature: 5.3 cm abdominal aortic aneurysm. No rupture Lymph nodes: Unremarkable. No enlarged lymph nodes. Urinary bladder: Unremarkable as visualized. Reproductive: Moderate enlargement of the prostate gland Bones/joints: Degenerative changes in the spine. No acute fracture. Soft tissues: Small fat-containing inguinal hernias are noted. Tiny fat containing periumbilical hernia IMPRESSION: Minimal/mild left hydroureteronephrosis secondary to a faint 2 mm distal left ureteral calculus 5.3 cm abdominal aortic aneurysm without rupture Nonurgent findings as described Dictated and Authenticated by: Rosalio Godfrey MD. Ordering:RASHEL Beasley MD
[2021-08-13] MEDS: HYDROmorphone 2 MG/ML VIAL 1 MG IVP (02:15)
[2021-08-13 02:21] LABS: Bilirubin Negative (Negative); Blood Moderate (Negative); Clarity Sl Cloudy (Clear); Glucose Negative (Negative); Ketones Negative (Negative); Leukocyte Esterase Negative (Negative); Nitrite Negative (Negative); Specific Gravity 1.025 (1.005-1.025); Urobilinogen 0.2 EU/dL (Up TO 0.2); pH 5.5 (5-8)
[2021-08-13 02:27] LABS: Bacteria Few HPF (Negative); Crystals Few Calcium Oxalate HPF (Negative); Epithelial Cells Rare HPF (Negative); Mucus Negative (Negative); Other Cells Few Renal (Negative); RBC >50 HPF (0-2); WBC 0-2 HPF (0-5)
[2021-08-13 02:28] LABS: C & S Indicated? No; Casts Negative LPF (Negative)
== END 2021-08-13 04:08 | disposition home or self-care (01) ==
PROVIDERS: Emergency Provider Emergency Medicine; PCP Family Medicine
DX: N20.0 Calculus of kidney (principal); R10.32 Left lower quadrant pain; I71.4 Abdominal aortic aneurysm, without rupture
CPT/HCPCS: 36415; 80053; 83690; 96361; 96374; 96375; 99284; 74176; 81003; 81015; 82248; 83735; 85025; J1885

== ENCOUNTER 2021-08-13 16:29 | Emergency (ER) | payer MEDICARE, MEDICAID, SELFPAY ==
[2021-08-13 16:32] VITALS: PULSE 76; RESP 18; O2SAT 97
[2021-08-13 16:35] VITALS: BP 174/83; PULSE 79; RESP 18; TEMP 36.7; O2SAT 97
--- NOTE | 2021-08-13 17:04 | ED.GENADUL_ITS ---
Discharge Plan Disposition Patient Disposition: HOME Condition: Improving Discharge Details Clinical Impression: Kidney stone Primary Care Provider: Nigel Emerson ED Provider: Jhonatan Allen Home Meds and New Rx's Prescriptions: New ketorolac 10 mg tablet 10 mg PO QID PRN (Reason: pain) Qty: 14 0RF Continued methocarbamol 500 mg tablet 500 mg PO QHS Qty: 7 0RF Rx Instructions: take one pill at night prior to bed. tamsulosin 0.4 mg capsule 0.8 mg PO HS Qty: 180 4RF hydrochlorothiazide 25 mg tablet 50 mg PO DAILY Qty: 180 3RF (DME) syringe with needle 3 mL 22 gauge x 1 syringe See Dose Instructions .ROUTE .MEDSUPPLY Qty: 6 3RF Dose Instruction: As directed Label Comments: pt. states he took it two weeks ago Rx Instructions: As directed twice/month metoprolol succinate 25 mg tablet extended release 24 hr 12.5 mg PO DAILY Qty: 45 3RF metformin 1,000 mg tablet 1,000 mg PO BID Qty: 180 3RF spironolactone [Aldactone] 25 mg tablet 25 mg PO DAILY Qty: 90 3RF gabapentin 300 mg capsule 300 mg PO QHS Qty: 30 2RF prednisone 20 mg tablet 40 mg PO DAILY PRN (Reason: shoulder/neck pain) Qty: 14 0RF C-PAP Rx Instructions: [facility] [place] sleep lab, sleep apnea (DME) Inhaler, Assist Devices [Aerochamber Mini] 1 EACH spacer 1 ea Miscellaneous DAILY Qty: 1 0RF epinephrine [EpiPen 2-Rahul] 0.3 MG/0.3 ML auto-injector 0.3 mg IJ PRN Qty: 1 0RF Incruse Ellipta 62.5 mcg/actuation blister with device 1 inh inhalation DAILY Qty: 30 2RF oxycodone 5 mg tablet 5 mg PO Q8H PRN (Reason: pain) Qty: 10 0RF acetaminophen 500 mg tablet 1,000 mg PO Q8H PRN (Reason: pain) Qty: 90 3RF Discharge Instructions Instructions: Kidney Stones (ED) Additional Instructions: Due to the medication received in the emergency please do not take any further NSAIDs and after 1 AM. Then you may start using the prescribed pain medication that you received during today's visit. You may continue to use the oxycodone and acetaminophen as well. While on the new medication do not take any Aleve, ibuprofen, or other NSAIDs as this may increase your risk of GI bleeding or cardiac risk factors. If your pain changes in any way such as you start having worsening back pain, swelling numbness tingling to the legs, or severe abdominal pain return im mediately to the emergency department for reassessment. It is very important that you stay well-hydrated and take oral of your other medications as prescribed. Referrals: [facility] [Provider Group] Discharge Data Discharge Date/Time-TO BE ENTERED AT DEPARTURE: 08/13/21 18:02 Medical Decision Making Patient presenting to the emergency department for chief complaint of continued flank and abdominal pain. Patient was seen in the emergency department last night and was diagnosed with a kidney stone and does state some blood in his urine. Patient denies any change in symptoms but states that the prescribed oxycodone is not helping his discomfort at this time. He is not sure which medication it was but does start the second medication that was given intravenously in the emergency department helped more than anything else. Review of medical records from yesterday evening shows that patient also was found to have an AAA that was stable. Physical exam shows tenderness to palpation to the left lower quadrant, no abdominal bruit, distal pulses intact, nontoxic in appearance. Given that patient states no change in symptoms from yesterday evening and is here more for appropriate pain control I have low suspicion of change of his AAA but continued discomfort from renal stone given pain is lateralized to the left flank and abdomen. We will plan on treating patient's pain and reassessing with close monitoring of symptoms for return precautions due to incidental finding found last night. Patient had full resolution of pain after receiving Toradol. Discussed risk versus benefit of oral Toradol with patient that given that this relieves his pain better than opiate and he would rather not take opiate he is fine with the risk of this medication. Informed him of warning signs to return immediately to the emergency department for otherwise patient will follow-up with urology. A fter discussion of diagnosis and plan of care patient has no further needs, questions, or concerns and states clear understanding to return to the emergency department for any worsening symptoms. HPI General Mode of arrival: ambulatory . Date/Time Provider Initiated Documentation: 08/13/21 16:31 . Limitations to Documentation: no limitations . Information obtained by: patient, RN notes reviewed and old records reviewed . History of Present Illness 71 year old M presents to the emergency department with the chief complaint of left flank/ABD pain, described as moderate and similar to prior episodes, with intensity rated at 8. Quality is described as aching, and is localized to the abdomen and left. Patient reports no radiation. Patient started experiencing this day(s) (2) and it has been constant. Medication improves symptom(s), No exacerbating factors reported . Patient notes no other symptoms.. Patient did receive the following treatments prior to arrival, other (RX medication) Related Data Home Medications Medication Instructions Recorded Confirmed C-Pap 07/31/12 07/22/21 epinephrine 0.3 mg/0.3 mL 0.3 mg (0.3 mL) IJ PRN #1 mL 08/24/17 07/22/21 injection, auto-injector (EpiPen 2-Rahul) acetaminophen 500 mg tablet 1,000 mg PO Q8H PRN pain #90 tabs 02/27/19 07/22/21 syringe with needle 3 mL 22 gauge #6 ea 04/04/19 07/22/21 x 1 methocarbamol 500 mg tablet 500 mg PO QHS #7 tabs 12/27/19 07/22/21 metformin 1,000 mg tablet 1,000 mg PO BID #180 tabs 09/02/20 07/22/21 metoprolol succinate 25 mg 12.5 mg PO DAILY #45 tabs 09/02/20 07/22/21 tablet,extended release 24 hr spironolactone 25 mg tablet 25 mg PO DAILY #90 tabs 09/02/20 07/22/21 (Aldactone) hydrochlorothiazide 25 mg tablet 50 mg PO DAILY #180 tab-caps 03/03/21 07/22/21 tamsulosin 0.4 mg capsule 0.8 mg PO HS #180 tab-caps 03/03/21 07/22/21 gabapentin 300 mg capsule 300 mg PO QHS #30 caps 06/17/21 07/22/21 prednisone 20 mg tablet 40 mg PO DAILY PRN shoulder/neck 07/22/21 07/22/21 pain #14 tabs umeclidinium 62.5 mcg/actuation 1 inh inhalation DAILY #30 ea 07/22/21 blister powder for inhalation (Incruse Ellipta) ketorolac 10 mg tablet 10 mg PO QID PRN pain #14 tabs 08/13/21 oxycodone 5 mg tablet 5 mg PO Q8H PRN pain #10 tabs 08/13/21 Previous Rx's Medication Instructions Recorded epinephrine 0.3 mg/0.3 mL 0.3 mg (0.3 mL) IJ PRN #1 mL 08/24/17 injection, auto-injector (EpiPen 2-Rahul) acetaminophen 500 mg tablet 1,000 mg PO Q8H PRN pain #90 tabs 02/27/19 syringe with needle 3 mL 22 gauge #6 ea 04/04/19 x 1 methocarbamol 500 mg tablet 500 mg PO QHS #7 tabs 12/27/19 metformin 1,000 mg tablet 1,000 mg PO BID #180 tabs 09/02/20 metoprolol succinate 25 mg 12.5 mg PO DAILY #45 tabs 09/02/20 tablet,extended release 24 hr spironolactone 25 mg tablet 25 mg PO DAILY #90 tabs 09/02/20 (Aldactone) hydrochlorothiazide 25 mg tablet 50 mg PO DAILY #180 tab-caps 03/03/21 tamsulosin 0.4 mg capsule 0.8 mg PO HS #180 tab-caps 03/03/21 gabapentin 300 mg capsule 300 mg PO QHS #30 caps 06/17/21 prednisone 20 mg tablet 40 mg PO DAILY PRN shoulder/neck 07/22/21 pain #14 tabs umeclidinium 62.5 mcg/actuation 1 inh inhalation DAILY #30 ea 07/22/21 blister powder for inhalation (Incruse Ellipta) ketorolac 10 mg tablet 10 mg PO QID PRN pain #14 tabs 08/13/21 oxycodone 5 mg tablet 5 mg PO Q8H PRN pain #10 tabs 08/13/21 Allergies Allergy/AdvReac Type Severity Reaction Status Date / Time SARAH Inhibitors Allergy Unknown Verified 08/13/21 00:56 spironolactone AdvReac Intermediate fatigue Verified 08/13/21 00:56 amlodipine AdvReac Swelling/Ed Verified 08/13/21 00:56 robles ezetimibe AdvReac myalgias Verified 08/13/21 00:56 hydrocodone AdvReac Hallucinati Verified 08/13/21 00:56 ons lisinopril AdvReac cough Verified 08/13/21 00:56 losartan AdvReac fatigue Verified 08/13/21 00:56 oxycodone AdvReac Depression Verified 08/13/21 00:56 clams SOB ER Allergy Severe SOB ER Uncoded 08/13/21 00:56 red yeast rice AdvReac Intermediate Uncoded 08/13/21 00:56 General Stated Complaint: FlankPain THIAGO: 4 Review of Systems Constitutional Constitutional: Denies chills, Denies fever(s) and Denies headache(s) ENT Ears, Nose, Mouth, and Throat: Denies headache(s) Cardiovascular Cardiovascular: Denies chest pain Respiratory Respiratory: Reports system reviewed and no additional complaints, except as documented Gastrointestinal Gastrointestinal: Reports as per HPI, Reports abdominal pain, Denies cramping, Denies nausea and Denies vomiting Genitourinary Genitourinary: Reports as per HPI, Reports hematuria, Denies oliguria, Denies difficulty urinating, Reports flank pain and Reports urinary frequency Musculoskeletal Musculoskeletal: Denies back pain Neurologic Neurologic: Denies headache(s) and Denies paresthesias PFSH All Active Problems Kidney stone (Chronic) Abdominal pain (Acute) AAA (abdominal aortic aneurysm) (Acute) SOB (shortness of breath) (Acute) Type 2 diabetes mellitus with diabetic neuropathy, unspecified (Acute) Diabetes mellitus (Acute) Failure of rotator cuff repair (Acute) History of repair of right rotator cuff (Acute 02/2009) History of repair of left rotator cuff (Acute 04/2005) Osteoarthritis of left knee (Acute) Fibula fracture (Acute) Left Hypogonadism (Acute) Neck pain, musculoskeletal (Acute) Shoulder pain, acute (Acute) Hyperplastic colon polyp (Acute) Elevated blood pressure reading (Acute) Tubular adenoma (Acute) 01/24/15 History of tobacco use (Acute) History of esophagogastroduodenoscopy (Acute) Full thickness rotator cuff tear (Acute) Fatigue (Acute) better w/ T replacement recheck levels Atypical chest pain (Acute) Right knee DJD (Chronic) Synvisc injection: 09/18/2018 Ingrown toenail of right foot (Acute) advised to not cut nails too short Screening for colon cancer (Acute) MARCUS (dyspnea on exertion) (Acute) History of total right knee replacement (TKR) (Acute 02/27/19) Peripheral edema (Acute) likely dependency due to morbid obesity Screening for colorectal cancer (Chronic) Benign prostatic hyperplasia (Chronic) 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 Essential hypertension (Acute) cough on SARAH-I Gastroesophageal reflux disease (Acute) small hiatal hernia EGD 03/2004 Hearing loss (Acute) bilateral Hyperlipidemia (Acute 07/10/12) intolerant to statins and Zetia Increased body mass index (Acute) Lactose intolerance (Chronic) possible Malignant melanoma of skin of lower limb (Acute 05/23/13) [facility] [place]; LEFT LEG; T3ANO STAGE 2A Obstructive sleep apnea (adult) (pediatric) (Acute) SEVERE with good response to CPAP Onychomycosis (Acute) Peyronie's disease (Acute) Status post arthroscopy of right knee (Chronic) Partial medial and lateral meniscectomies DOS: 04/06/18 Repeat surgery: 06/02/2018 Low testosterone (Chronic) Hypertension (Chronic) H/O shoulder surgery (Chronic) bilateral Medical History Gout Surgical History Colonoscopy - [facility] (04/15/04) Rare tics, no polyps;Small HH & fundic gland polyp COLONOSCOPY W/MAC (01/24/15) DR. ULICES EVANS EGD - [facility] (04/15/04) History of hernia repair Rotator Cuff Repair (~2005) left and right Family History Mother , 78 Arthritis Father , 82 Alzheimer disease Sister No problems noted. Sister No problems noted. Brother No problems noted. Brother No problems noted. Maternal Grandfather , 83 No problems noted. Paternal Grandfather , 80 No problems noted. Maternal Grandmother , 74 No problems noted. Paternal Grandmother , 80 No problems noted. Son No problems noted. Daughter Epilepsy Social History Smoking/Tobacco Use Status: Former Tobacco Use tobacco type: cigarettes Quit Date: 03/21/07 Tobacco: How many years used: 10 Second Hand Exposure: Yes Smoking risk assessment performed?: Yes Alcohol Intake: current Alcohol Intake frequency: a few times a week Alcohol type: beer Drug use: Never Substance use type: does not use Counseling given: No Details: alcohol:t-3, one beer Caregiver/Support person: No Household members: spouse Housing: house Communication Needs: Hard of Hearing Do you need help understanding health information?: Often Pets and animals: No Sexually active: Yes Do you think of yourself as: straight/heterosexual Current gender identity: male What is your relationship status?: How often do you talk on the phone with friends or family?: three or more times per week How often do you get together with friends or relatives?: once per week How often do you attend uatsdin or spiritism services?: decline to answer Do you belong to any clubs or organized social groups?: no Panel score (0-1 are the most socially isolated patients): 2 Mariely/Voodoo: None Special mariely needs: No Seatbelt use: sometimes Drive intox or ride w/intox 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 Do you feel safe at home: Yes Do you feel safe in your relationship?: Yes Exam Const General: cooperative and no acute distress Orientation: alert, awake and oriented x3 Resp Effort & Inspection: normal respiratory effort and able to speak in complete sentences Auscultation: clear to auscultation bilaterally Cardio Rate: regular rate Rhythm: regular rhythm Heart Sounds: S1 normal and S2 normal Bruits: no abdominal aortic bruits GI Inspection: obesity Palpation: soft, not firm, no guarding, not rigid and tender in the LLQ Auscultation: normal bowel sounds General: No CVA tenderness Back/Spine/Pelvis Back: no CVA tenderness and No back tenderness Neuro General: patient alert, patient awake, patient oriented x3 and moves all extremities Extrem General: capillary refill normal Course Vital Signs Vital signs: Vital Signs Pulse 76 08/13/21 16:32 Respiratory Rate 18 08/13/21 16:32 Pulse Oximetry 97 08/13/21 16:32 Temperature 36.7 C 08/13/21 16:35 Temperature Source Tympanic 08/13/21 16:35 Pulse 79 08/13/21 16:35 Respiratory Rate 18 08/13/21 16:35 Respiratory Effort 08/13/21 16:34 Blood Pressure 174/83 H 08/13/21 16:35 Blood Pressure Position Supine 08/13/21 16:32 Pulse Oximetry 97 08/13/21 16:35 Oxygen Delivery Method Room Air 08/13/21 16:35 Oxygen Flow Rate 0 08/13/21 16:35 Pain Level 8 08/13/21 16:35
[2021-08-13] MEDS: Ketorolac 30 MG/ML VIAL IVP (17:08)
[2021-08-13 17:49] VITALS: BP 156/100; PULSE 78; RESP 18; O2SAT 96
== END 2021-08-13 18:02 | disposition home or self-care (01) ==
PROVIDERS: Emergency Provider Nurse Practitioner Family; PCP Family Medicine
DX: N20.0 Calculus of kidney (principal)
CPT/HCPCS: 36415; 80053; 83690; 96361; 96374; 96375; 99284; 74176; 81003; 81015; 82248; 83735; 85025; 99283; J1885

== ENCOUNTER → 2021-09-10 02:47 | Outpatient (CLI) | payer MEDICARE, MEDICAID, SELFPAY ==
--- NOTE | 2021-09-10 08:00 | DI.RAD_ITS ---
Exam(s) XR HIP LT COMPLETE AP PELVIS EXAM: XR HIP LT COMPLETE AP PELVIS INDICATION: evaluate hip pain, LT HIP PAIN, M25.552. COMPARISON: No exams were available for comparison TECHNIQUE: 2D digital imaging was performed. Two views. FINDINGS: The hip joint spaces are well maintained. There is bilateral acetabular spurring. There is mild spu rring from the margins of the femoral heads. Enthesophytes are seen at the iliac wings. IMPRESSION: Mild degenerative changes. DATA REPOSITORY: RADIATION DOSE DELIVERED:
--- NOTE | 2021-09-10 08:00 | DI.RAD_ITS ---
Exam(s) XR LUMBAR SPINE COMPLETE EXAM: XR LUMBAR SPINE COMPLETE CLINICAL HISTORY: vertebral alignment, LT HIP PAIN, LUMBAR BACK PAIN, M25.552, M54.50. TECHNIQUE: 2D digital imaging was performed. Five views. COMPARISON: CT CT ABDOMEN PELVIS WO from 08/13/2021 FINDINGS: BONES: No fracture or destructive lesion. Vertebral bodies normal in height. There are endplate oste ophytes throughout.. facet hypertrophy identified at L S1.. DISKS: Intervertebral disc spaces are maintained. ALIGNMENT: Lumbar spinal alignment is within normal limits. SOFT TISSUE: Right upper quadrant calcifications seen on prior CT to represent calcification within t he right adrenal gland. The aorta is calcified. There is a saccular infrarenal abdominal or aortic aneurysm majus above the bifurcation is seen on recent CT to measure 5.4 cm. IMPRESSION: Prominent endplate osteophytes. Disc spaces are relatively well maintained. Facet degenerative brenner ges at L5-S1. Abdominal aortic aneurysm. DATA REPOSITORY: RADIATION DOSE DELIVERED:
== END ==
PROVIDERS: PCP Family Medicine; Visit Provider Nurse Practitioner Family
DX: M47.817 Spondylosis without myelopathy or radiculopathy, lumbosacral region (principal); M25.78 Osteophyte, vertebrae; I71.4 Abdominal aortic aneurysm, without rupture; M16.12 Unilateral primary osteoarthritis, left hip
CPT/HCPCS: 72110; 73502

== ENCOUNTER 2021-09-19 16:26 | Emergency (ER) | payer MEDICARE, MEDICAID, SELFPAY ==
[2021-09-19 16:29] VITALS: BP 176/97; PULSE 84; RESP 20; TEMP 36.2; O2SAT 97
--- NOTE | 2021-09-19 18:14 | ED.GENADUL_ITS ---
Discharge Plan Disposition Patient Disposition: HOME Condition: Stable Discharge Details Clinical Impression: Sciatica of left side associated with disorder of lumbar spine Primary Care Provider: Nigel Emerson ED Provider: Marcela Cabello Home Meds and New Rx's Prescriptions: New tramadol 50 mg tablet 50 mg PO Q8H PRNQty: 3 0RF Rx Instructions: Take 1 tablet up to 3 times daily as needed for moderate to severe pain. Do not drive or operate heavy machinery while taking this medication. Please take with food Continued tamsulosin 0.4 mg capsule 0.8 mg PO HS Qty: 180 4RF hydrochlorothiazide 25 mg tablet 50 mg PO DAILY Qty: 180 3RF metoprolol succinate 25 mg tablet extended release 24 hr 25 mg PO DAILY Qty: 90 3RF (DME) syringe with needle 3 mL 22 gauge x 1 syringe See Dose Instructions .ROUTE .MEDSUPPLY Qty: 6 3RF Dose Instruction: As directed Label Comments: pt. states he took it two weeks ago Rx Instructions: As directed twice/month gabapentin 300 mg capsule 300 mg PO QHS Qty: 30 2RF lorazepam 1 mg tablet 1 mg PO ONCE Qty: 1 0RF Rx Instructions: take 30 mins before MRI cyclobenzaprine 10 mg tablet 10 mg PO HS PRN (Reason: muscle spasm) Qty: 20 0RF C-PAP Rx Instructions: [facility] sleep lab, sleep apnea (DME) Inhaler, Assist Devices [Aerochamber Mini] 1 EACH spacer 1 ea Miscellaneous DAILY Qty: 1 0RF epinephrine [EpiPen 2-Rahul] 0.3 MG/0.3 ML auto-injector 0.3 mg IJ PRN Qty: 1 0RF Incruse Ellipta 62.5 mcg/actuation blister with device 1 inh inhalation DAILY Qty: 30 2RF spironolactone [Aldactone] 25 mg tablet 25 mg PO DAILY Qty: 90 3RF metformin 1,000 mg tablet 1,000 mg PO BID Qty: 180 3RF ketorolac 10 mg tablet 10 mg PO QID PRN (Reason: pain) Qty: 14 0RF acetaminophen 500 mg tablet 1,000 mg PO Q8H PRN (Reason: pain) Qty: 90 3RF No Action prednisone 20 mg tablet 40 mg PO DAILY PRN (Reason: shoulder/neck pain) Qty: 14 0RF Discharge Instructions Instructions: Sciatica (ED) Additional Instructions: Use the lidocaine patch as directed once daily. You may get these [id number]. Take the tramadol with food as directed. Do not drive or operate heavy machinery while taking the medication. You may try lower back exercises and stretching if tolerated. Alternate ice and heat. May continue taking Tylenol every 4-6 hours as needed for pain. Follow up with primary care provider in 3-5 days. Return to ED sooner if any worsening or concerns. Increase oral fluids. Referrals: Nigel Emerson MD [Primary Care Provider] - 1 week Medical Decision Making 61-year-old male presents to the ER with a chief complaint of left lower back pain left hip pain which radiates down to his left anterior thigh which has been constant for the last 24 to 48 hours. He states it has been intermittent for the last 3 weeks but has gotten worse. He also reports noted increased blood pressure. He does state that he took his blood pressure medication this morning. 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 He denies any chest pain, dizziness lightheadedness or abdominal pain. He does state that his has shortness of breath but that it is constant. He also tells staff command and control officer that his was recently diagnosed with COVID. Patient has no signs or symptoms of cauda equina denies any loss of bowel or bladder control no saddle anesthesia Differential diagnosis includes not limited to sciatica, radiculopathy, worsening AAA. CBC shows no leukocytosis, PT/INR within normal limits CMP largely within normal limits BUN 26 creatinine 1.3 GFR 54, glucose 128 COVID is negative. 1932: Patient reports intermittent relief with the fentanyl he now states his pain is back [address] shows no acute findings 59 mm infrarenal aortic aneurysm with no rupture does appear stable. No other acute abnormalities. Discussed results with patient who verbalized understanding. He has taken tramadol previously we will give him tramadol here in the department and 2 tablets to go and lidocaine patch. Medical Records Medical records reviewed: Yes I reviewed the patient's medical records. Lab Data Lab results reviewed: Yes I reviewed the patient's lab results. Labs: Laboratory Tests Range/Units 09/19/21 09/19/21 09/19/21 17:55 17:55 17:55 WBC (4.4-10.8) 10^3/uL 8.04 RBC (4.36-5.78) 10^6/uL 4.33 L Hgb (13.5-17.5) g/dL 13.6 Hct (40.0-50.0) % 41.7 MCV (80-95) fL 96 H MCH (27.0-33.0) pg 31.4 MCHC (32.0-36.0) % 32.6 RDW (11.8-14.1) % 13.6 Plt Count (130-400) 10^3/uL 218 MPV (8.0-11.0) fL 9.7 Immature Gran % 0.7 Neutrophils % 64.7 Lymphocytes % 24.0 Monocytes % 8.2 Eosinophils % 1.9 Basophils % 0.5 Nucleated RBC % (0.0-0.3) % 0.0 Absolute Neutrophils (1.2-6.7) 10^3/uL 5.20 Absolute Lymphocytes (1.2-3.4) 10^3/uL 1.93 Absolute Monocytes (0.1-0.8) 10^3/uL 0.66 Absolute Eosinophils (0.0-0.7) 10^3/uL 0.15 Absolute Basophils (0.0-0.2) 10^3/uL 0.04 PT (9.3-11.0) sec 9.6 INR (0.9-1.1) 1.0 Sodium (136-145) mmol/L 136 Potassium (3.5-5.1) mmol/L 3.9 Chloride (98-107) mmol/L 101 Carbon Dioxide (21.0-32.0) mmol/L 25.8 Anion Gap (3-11) mmol/L 9.2 BUN (7-18) mg/dL 26 H Creatinine (0.70-1.30) mg/dL 1.3 Estimated GFR/1.73 m2 (mL/min/1.73m2) 54.73 Glucose (74-106) mg/dL 128 H Calcium (8.5-10.1) mg/dL 8.5 Magnesium (1.8-2.4) mg/dL 2.1 Total Bilirubin (0.2-1.0) mg/dL 0.4 AST (15-37) U/L 20 ALT (16-63) U/L 41 Alkaline Phosphatase (46-116) U/L 70 Total Protein (6.4-8.2) g/dL 6.8 Albumin (3.4-5.0) g/dL 3.8 Urine Color (Yellow) Urine Clarity (Clear) Urine pH (5-8) Ur Specific [place] (1.005-1.025) Urine Protein (Negative) mg/dL Urine Ketones (Negative) mg/dL Urine Blood (Negative) Urine Nitrite (Negative) Urine Bilirubin (Negative) Urine Urobilinogen (Up TO 0.2) EU/dL Ur Leukocyte Esterase (Negative) Urine Glucose (Negative) mg/dL COVID-19 Source SARS-CoV-2 (PCR) (Negative) Range/Units 09/19/21 09/19/21 17:55 19:30 WBC (4.4-10.8) 10^3/uL RBC (4.36-5.78) 10^6/uL Hgb (13.5-17.5) g/dL Hct (40.0-50.0) % MCV (80-95) fL MCH (27.0-33.0) pg MCHC (32.0-36.0) % RDW (11.8-14.1) % Plt Count (130-400) 10^3/uL MPV (8.0-11.0) fL Immature Gran % Neutrophils % Lymphocytes % Monocytes % Eosinophils % Basophils % Nucleated RBC % (0.0-0.3) % Absolute Neutrophils (1.2-6.7) 10^3/uL Absolute Lymphocytes (1.2-3.4) 10^3/uL Absolute Monocytes (0.1-0.8) 10^3/uL Absolute Eosinophils (0.0-0.7) 10^3/uL Absolute Basophils (0.0-0.2) 10^3/uL PT (9.3-11.0) sec INR (0.9-1.1) Sodium (136-145) mmol/L Potassium (3.5-5.1) mmol/L Chloride (98-107) mmol/L Carbon Dioxide (21.0-32.0) mmol/L Anion Gap (3-11) mmol/L BUN (7-18) mg/dL Creatinine (0.70-1.30) mg/dL Estimated GFR/1.73 m2 (mL/min/1.73m2) Glucose (74-106) mg/dL Calcium (8.5-10.1) mg/dL Magnesium (1.8-2.4) mg/dL Total Bilirubin (0.2-1.0) mg/dL AST (15-37) U/L ALT (16-63) U/L Alkaline Phosphatase (46-116) U/L Total Protein (6.4-8.2) g/dL Albumin (3.4-5.0) g/dL Urine Color (Yellow) Yellow Urine Clarity (Clear) Clear Urine pH (5-8) 6.0 Ur Specific [place] (1.005-1.025) >= 1.030 H Urine Protein (Negative) mg/dL Negative Urine Ketones (Negative) mg/dL Negative Urine Blood (Negative) Trace-intact H Urine Nitrite (Negative) Negative Urine Bilirubin (Negative) Negative Urine Urobilinogen (Up TO 0.2) EU/dL 0.2 Ur Leukocyte Esterase (Negative) Negative Urine Glucose (Negative) mg/dL Negative COVID-19 Source Nasal/Nares SARS-CoV-2 (PCR) (Negative) Negative HPI General Mode of arrival: ambulatory . Date/Time Provider Initiated Documentation: 09/19/21 17:00 . Limitations to Documentation: no limitations . Information obtained by: patient and RN notes reviewed . HPI Narrative: 61-year-old male presents to the ER with a chief complaint of left lower back pain left hip pain which radiates down to his left anterior thigh which has been constant for the last 24 to 48 hours. He states it has been intermittent for the last 3 weeks but has gotten worse. He also reports noted increased blood pressure. He does state that he took his blood pressure medication this morning. 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 He denies any chest pain, dizziness lightheadedness or abdominal pain. He does state that his has shortness of breath but that it is constant. He also tells staff command and control officer that his was recently diagnosed with COVID. Patient has a past medical history of hypertension, Peyronie's disease, obstructive sleep apnea, GERD, tubular adenoma, obesity Related Data Home Medications Medication Instructions Recorded Confirmed C-Pap 07/31/12 09/16/21 epinephrine 0.3 mg/0.3 mL 0.3 mg (0.3 mL) IJ PRN #1 mL 08/24/17 09/16/21 injection, auto-injector (EpiPen 2-Rahul) acetaminophen 500 mg tablet 1,000 mg PO Q8H PRN pain #90 tabs 02/27/19 09/16/21 syringe with needle 3 mL 22 gauge #6 ea 04/04/19 09/16/21 x 1 hydrochlorothiazide 25 mg tablet 50 mg PO DAILY #180 tab-caps 03/03/21 09/16/21 tamsulosin 0.4 mg capsule 0.8 mg PO HS #180 tab-caps 03/03/21 09/16/21 gabapentin 300 mg capsule 300 mg PO QHS #30 caps 06/17/21 09/16/21 umeclidinium 62.5 mcg/actuation 1 inh inhalation DAILY #30 ea 07/22/21 09/16/21 blister powder for inhalation (Incruse Ellipta) ketorolac 10 mg tablet 10 mg PO QID PRN pain #14 tabs 08/13/21 09/16/21 metoprolol succinate 25 mg 25 mg PO DAILY #90 tabs 08/19/21 09/16/21 tablet,extended release 24 hr prednisone 20 mg tablet 40 mg PO DAILY PRN shoulder/neck 09/01/21 09/16/21 pain #14 tabs spironolactone 25 mg tablet 25 mg PO DAILY #90 tabs 09/04/21 09/16/21 (Aldactone) cyclobenzaprine 10 mg tablet 10 mg PO HS PRN muscle spasm #20 09/16/21 09/16/21 tabs lorazepam 1 mg tablet 1 mg PO ONCE claustrophobia #1 tab 09/16/21 09/16/21 metformin 1,000 mg tablet 1,000 mg PO BID #180 tabs 09/17/21 tramadol 50 mg tablet 50 mg PO Q8H PRN #3 tabs 09/19/21 Previous Rx's Medication Instructions Recorded epinephrine 0.3 mg/0.3 mL 0.3 mg (0.3 mL) IJ PRN #1 mL 08/24/17 injection, auto-injector (EpiPen 2-Rahul) acetaminophen 500 mg tablet 1,000 mg PO Q8H PRN pain #90 tabs 02/27/19 syringe with needle 3 mL 22 gauge #6 ea 04/04/19 x 1 hydrochlorothiazide 25 mg tablet 50 mg PO DAILY #180 tab-caps 03/03/21 tamsulosin 0.4 mg capsule 0.8 mg PO HS #180 tab-caps 03/03/21 gabapentin 300 mg capsule 300 mg PO QHS #30 caps 06/17/21 umeclidinium 62.5 mcg/actuation 1 inh inhalation DAILY #30 ea 07/22/21 blister powder for inhalation (Incruse Ellipta) ketorolac 10 mg tablet 10 mg PO QID PRN pain #14 tabs 08/13/21 metoprolol succinate 25 mg 25 mg PO DAILY #90 tabs 08/19/21 tablet,extended release 24 hr prednisone 20 mg tablet 40 mg PO DAILY PRN shoulder/neck 09/01/21 pain #14 tabs spironolactone 25 mg tablet 25 mg PO DAILY #90 tabs 09/04/21 (Aldactone) cyclobenzaprine 10 mg tablet 10 mg PO HS PRN muscle spasm #20 09/16/21 tabs lorazepam 1 mg tablet 1 mg PO ONCE claustrophobia #1 tab 09/16/21 metformin 1,000 mg tablet 1,000 mg PO BID #180 tabs 09/17/21 tramadol 50 mg tablet 50 mg PO Q8H PRN #3 tabs 09/19/21 Allergies Allergy/AdvReac Type Severity Reaction Status Date / Time spironolactone AdvReac Intermediate fatigue Verified 09/16/21 10:43 SARAH Inhibitors AdvReac Unknown wiped out Verified 09/16/21 10:45 amlodipine AdvReac Swelling/Ed Verified 09/16/21 10:43 robles ezetimibe AdvReac myalgias, Verified 09/16/21 10:45 wiped out hydrocodone AdvReac Hallucinati Verified 09/16/21 10:43 ons lisinopril AdvReac cough Verified 09/16/21 10:43 losartan AdvReac fatigue Verified 09/16/21 10:43 oxycodone AdvReac Depression Verified 09/16/21 10:43 clams SOB ER Allergy Severe SOB ER Uncoded 09/16/21 10:43 red yeast rice AdvReac Intermediate wiped out Uncoded 09/16/21 10:45 General Stated Complaint: Nk/Back Pain THIAGO: 3 Review of Systems All systems reviewed & are unremarkable except as noted in HPI and below Musculoskeletal Musculoskeletal: Reports as per HPI and Reports back pain PFSH All Active Problems Sciatica of left side associated with disorder of lumbar spine (Acute) Low back pain (Acute) Impacted cerumen, right ear (Acute) SOB (shortness of breath) (Acute) Type 2 diabetes mellitus with diabetic neuropathy, unspecified (Acute) Diabetes mellitus (Acute) Failure of rotator cuff repair (Acute) History of repair of right rotator cuff (Acute 02/2009) History of repair of left rotator cuff (Acute 04/2005) Osteoarthritis of left knee (Acute) Fibula fracture (Acute) Left Hypogonadism (Acute) Neck pain, musculoskeletal (Acute) Shoulder pain, acute (Acute) Hyperplastic colon polyp (Acute) Elevated blood pressure reading (Acute) Tubular adenoma (Acute) 01/24/15 History of tobacco use (Acute) History of esophagogastroduodenoscopy (Acute) Full thickness rotator cuff tear (Acute) Fatigue (Acute) better w/ T replacement recheck levels Atypical chest pain (Acute) Right knee DJD (Chronic) Synvisc injection: 09/18/2018 Ingrown toenail of right foot (Acute) advised to not cut nails too short Screening for colon cancer (Acute) MARCUS (dyspnea on exertion) (Acute) History of total right knee replacement (TKR) (Acute 02/27/19) Peripheral edema (Acute) likely dependency due to morbid obesity Screening for colorectal cancer (Chronic) Benign prostatic hyperplasia (Chronic) 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 Essential hypertension (Acute) cough on SARAH-I Gastroesophageal reflux disease (Acute) small hiatal hernia EGD 03/2004 Hearing loss (Acute) bilateral Hyperlipidemia (Acute 07/10/12) intolerant to statins and Zetia Increased body mass index (Acute) Lactose intolerance (Chronic) possible Malignant melanoma of skin of lower limb (Acute 05/23/13) [facility]; LEFT LEG; T3ANO STAGE 2A Obstructive sleep apnea (adult) (pediatric) (Acute) SEVERE with good response to CPAP Onychomycosis (Acute) Peyronie's disease (Acute) Status post arthroscopy of right knee (Chronic) Partial medial and lateral meniscectomies DOS: 04/06/18 Repeat surgery: 06/02/2018 Low testosterone (Chronic) Hypertension (Chronic) H/O shoulder surgery (Chronic) bilateral Medical History Gout Surgical History Colonoscopy - MAC (04/15/04) Rare tics, no polyps;Small HH & fundic gland polyp COLONOSCOPY W/MAC (01/24/15) DR. ULICES EVANS EGD - MAC (04/15/04) History of hernia repair Rotator Cuff Repair (~2005) left and right Family History Mother , 78 Arthritis Father , 82 Alzheimer disease Sister No problems noted. Sister No problems noted. Brother No problems noted. Brother No problems noted. Maternal Grandfather , 83 No problems noted. Paternal Grandfather , 80 No problems noted. Maternal Grandmother , 74 No problems noted. Paternal Grandmother , 80 No problems noted. Son No problems noted. Daughter Epilepsy Social History Smoking/Tobacco Use Status: Former Tobacco Use tobacco type: cigarettes Quit Date: 03/21/07 Tobacco: How many years used: 10 Second Hand Exposure: Yes Smoking risk assessment performed?: Yes Alcohol Intake: current Alcohol Intake frequency: a few times a week Alcohol type: beer Drug use: Never Substance use type: does not use Counseling given: No Details: alcohol:t-3, one beer Caregiver/Support person: No Household members: spouse Housing: house Communication Needs: Hard of Hearing Do you need help understanding health information?: Often Pets and animals: No Sexually active: Yes Do you think of yourself as: straight/heterosexual Current gender identity: male What is your relationship status?: How often do you talk on the phone with friends or family?: three or more times per week How often do you get together with friends or relatives?: once per week How often do you attend yazdanism or protestant services?: decline to answer Do you belong to any clubs or organized social groups?: no Panel score (0-1 are the most socially isolated patients): 2 Mariely/Holiness: None Special mariely needs: No Seatbelt use: sometimes Drive intox or ride w/intox 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 Appears stated age. obese body habitus. Head: Normocephalic, no trauma. Eyes: Pupils PERRL, Red reflex noted, EOM's intact. Eyelids symmetrical without lesions, discharge, or swelling. ENT: Bilateral TM's WNL, External ear normal to inspection, no mastoid TTP, swelling, or erythema, Nasal turbinates WNL, no nasal discharge. Normal dentition, Posterior pharynx WNL, no exudate. Chest: RRR, Normal S1, S2, distal pulses intact. Resp: Lungs clear to auscultation bilaterally, no wheezes, rales, or rhonchi. Abdomen: Soft, non-distended, Normoactive bowel sounds all 4 quads. Musculoskeletal: Normal gait, 5/5 strength to all four extremities. Skin: No suspicious rashes or lesions. Capillary refill less than 2 sec. Neurologic: Cranial nerves II-XII intact. Alert and oriented x 3. Motor: No deficits noted. Sensory: Intact bilaterally all 4 extremities. Reflexes: DTR's intact bilaterally.. Hematologic/Lymphatic: No ecchymosis, no lymphadenopathy. Course Vital Signs Vital signs: Vital Signs Temperature 36.2 C L 09/19/21 16:29 Pulse 84 09/19/21 16:29 Respiratory Rate 20 09/19/21 16:29 Blood Pressure 176/97 H 09/19/21 16:29 Pulse Oximetry 97 09/19/21 16:29 Temperature 36.2 C L 09/19/21 16:29 Temperature Source Temporal Artery Scan 09/19/21 16:29 Pulse 84 09/19/21 16:29 Respiratory Rate 20 09/19/21 16:29 Respiratory Effort 09/19/21 17:25 Blood Pressure 176/97 H 09/19/21 16:29 Blood Pressure Position Sitting 09/19/21 16:29 Pulse Oximetry 97 09/19/21 16:29 Oxygen Delivery Method Room Air 09/19/21 16:29 Oxygen Flow Rate 0 07/02/22 16:29 Pain Level 10 09/19/21 18:03 PAWSS Have you Been Recently Intoxicated or Drunk Within the Last 30 days?: No Have you Ever Experienced Previous Episodes of Alcohol Withdrawal?: No Have you ever Experienced Withdrawal Seizures?: No Have you ever Experienced Delirium Tremens(DT)s?: No Have you ever undergone Alcohol Rehabilitation Treatment (i.e, inpt ot outpatient treatment programs)?: No Have you ever Experienced Blackouts?: No Have you ever Combined Alcohol with other Downers within the last 90 days?: No Have you ever Combined Alcohol with any other Substance of Abuse during the last 90 days?: No Positive Blood Alcohol level on Presentation? [PCS.BAL]: No Evidence of Increased Autonomic Activity (i.e. HR>120, tremor, sweating, agitation, nausea)?: No Result: 0
--- NOTE | 2021-09-19 18:15 | DI.CT_ITS ---
Exam(s) CT THORAX ABD/PEL CTA EXAM: CT THORAX ABD/PEL CTA CLINICAL HISTORY: Eval AAA, Left Flank, Left thigh pain. TECHNIQUE: Imaging Protocol: Axial computed tomography images with coronal and sagittal reformatted images were created and reviewed CONTRAST MATERIAL: Intravenous: Omnipaque 350 Contrast volume:98 mL Oral: None COMPARISON: CT CT ABDOMEN PELVIS WO from 08/13/2021 FINDINGS: AORTA: Aortic arch anatomy is conventional. There is no significant dilatation of the ascending thor acic aorta. No dissection. Diameter of the aortic arch and descending thoracic aorta within normal limits. In the abdomen celiac and superior mesenteric arteries are patent. Some calcified ostial plaque note d at the left renal artery. Right renal artery unremarkable. The infrarenal abdominal aorta is athe rosclerotic. Inferior mesenteric artery is patent but there is prominent aneurysmal dilatation of th e inferior aspect of the abdominal aorta at and below the inferior mesenteric artery takeoff point, e xhibiting maximum diameter of 5.7 cm, similar to previous. The craniocaudal length of the aneurysm i s approximately 4.6 cm. The aneurysmal dilatation does not extend into the common iliac arteries whi ch exhibit upper normal diameters and no significant stenosis. CHEST: LUNGS: There is moderate elevation left hemidiaphragm with adjacent atelectasis in left lung base, si milar to previous CT scan of 08/13/2021.. No new infiltrates nor pleural effusions. No pneumothorax. MEDIASTINUM: There is no hilar nor mediastinal adenopathy. Visualized thyroid unremarkable. CARDIAC: Heart size is normal. There is no pericardial effusion. AORTA: Caliber of the thoracic aorta is within normal limits.There is no evidence of aortic dissectio n. ABDOMEN: There is no ascites. LIVER: Hepatic steatosis. No discrete focal hepatic lesions. No dilatation of intrahepatic ducts. GALLBLADDER/BILIARY: No obvious gallbladder pathology. CBD is not dilated. PANCREAS: No evidence of pancreatic mass nor dilatation of the pancreatic duct. SPLEEN: Spleen is not enlarged. There are no intrasplenic lesions. Splenic and portal veins are fowler nt. ADRENALS: Left adrenal unremarkable. Calcification of the right adrenal gland is again noted. KIDNEYS: No cysts evident. No calculi nor hydronephrosis. Previously present hydronephrosis on the l eft side is no longer seen. No solid renal masses. Urinary bladder unremarkable. ABDOMINAL AORTA: Abnormal aortic aneurysm as described above, without extension into the common iliac arteries. LYMPH NODES: There is no retroperitoneal nor para-aortic adenopathy. No obvious mesenteric masses. ABDOMINAL WALL: Fat containing anterior abdominal hernia. Fat containing right inguinal hernia. GI: There is no evidence of bowel obstruction, free air, nor abscess. PELVIS: LYMPH NODES: There is no intrapelvic nor inguinal adenopathy. GI: No evidence of appendicitis.No evidence of sigmoid diverticulitis. URINARY BLADDER: No calculi nor masses evident REPRODUCTIVE: Enlarged prostate gland again noted, similar to previous. Seminal vesicles unremarkabl e. OSSEOUS: No significant osseous lesions. IMPRESSION: 1. Compared to the prior CT scan of August 13, 2021 there is again noted an infrarenal abdominal aortic aneurysm, presently exhibiting maximum external diameter 5.7 cm. No rupture seen at this time. 2. Elevated left hemidiaphragm again noted. Atelectasis above the elevated left hemidiaphragm also a gain noted. No other pulmonary findings and no pleural effusions 3. Calcified right adrenal gland again noted. 4. Enlarged prostate gland again noted. RADIATION DOSE DELIVERED: 1,437.92mGy.cm Total DLP DATA REPOSITORY: All CT scans at this facility are submitted to the National Radiology Data Registry (NRDR) Dose Index Registry (DIR) with the [employer] (ACR). RADIATION OPTIMIZATION: All CT scans at this facility use at least one of these dose optimization te chniques: automated exposure control; mA and/or kV adjustment per patient size (includes targeted exa ms where dose is matched to clinical indication); or iterative reconstruction.
[2021-09-19 18:16] LABS: Source Nasal/Nares
[2021-09-19 18:18] LABS: Abs Immature Grans 0.06 10^3/uL (0.0-0.06); Absolute Basophil Count 0.04 10^3/uL (0.0-0.2); Absolute Eosinophil Count 0.15 10^3/uL (0.0-0.7); Absolute Lymphocyte Count 1.93 10^3/uL (1.2-3.4); Absolute Monocyte Count 0.66 10^3/uL (0.1-0.8); Basophils % 0.5; Eosinophils % 1.9; HCT 41.7 % (40.0-50.0); HGB 13.6 g/dL (13.5-17.5); Immature Grans % 0.7; MCH 31.4 pg (27.0-33.0); MCHC 32.6 % (32.0-36.0); MCV 96 fL (80-95); MPV 9.7 fL (8.0-11.0); Monocytes % 8.2; Neutrophils % 64.7; Platelet Count 218 10^3/uL (130-400); RBC 4.33 10^6/uL (4.36-5.78); RDW 13.6 % (11.8-14.1); RDW-SD 48.9 fL; WBC 8.04 10^3/uL (4.4-10.8)
[2021-09-19 18:30] LABS: Prothrombin Time 9.6 sec (9.3-11.0)
[2021-09-19 18:33] LABS: ALT 41 U/L (16-63); Albumin 3.8 g/dL (3.4-5.0); Alkaline Phosphatase 70 U/L (46-116); Anion Gap 9.2 mmol/L (3-11); BUN 26 mg/dL (7-18); Bilirubin, Total 0.4 mg/dL (0.2-1.0); CO2 25.8 mmol/L (21.0-32.0); CREATININE 1.3 mg/dL (0.70-1.30); Calcium 8.5 mg/dL (8.5-10.1); Chloride 101 mmol/L (98-107); Estimated GFR 54.73 (mL/min/1.73m2); Glucose 128 mg/dL (74-106); Magnesium 2.1 mg/dL (1.8-2.4); Potassium 3.9 mmol/L (3.5-5.1); Sodium 136 mmol/L (136-145); Total Protein 6.8 g/dL (6.4-8.2)
[2021-09-19] MEDS: fentaNYL 100 MCG/2 ML VIAL 50 MCG IVP (18:47)
[2021-09-19] MEDS: Omnipaque 350 MG/ML 100 ML BTL IJ (19:05)
[2021-09-19 19:09] LABS: COVID-19 PCR Negative (Negative)
[2021-09-19 19:22] LABS: AST 20 U/L (15-37)
--- NOTE | 2021-09-19 19:34 | DI.VRAD_ITS ---
PROCEDURE INFORMATION: Exam: CTA Chest With Contrast CTA Abdomen and Pelvis With Contrast Exam date and time: 09/19/2021 19:02 Age: 71 years old Clinical indication: Abdominal pain; Patient HX: Eval aaa, left flank TECHNIQUE: Imaging protocol: Computed tomographic angiography of the chest with contrast. Computed tomographic angiography of the abdomen and pelvis with contrast. 3D rendering (Not supervised by radiologist): MIP and/or 3D reconstructed images were created by the technologist. COMPARISON: CT CHEST WO 12/28/2019 09:08 FINDINGS: VASCULATURE: Pulmonary arteries: The main pulmonary artery segment is mildly prominent. No filling defects are seen. Aorta: 59 mm infrarenal aortic aneurysm with no rupture. No dissection. No thoracic aortic aneurysm. Celiac trunk and mesenteric arteries: No occlusion or significant stenosis. Renal arteries: No occlusion or significant stenosis. Right iliac arteries: No occlusion or significant stenosis. Left iliac arteries: No occlusion or significant stenosis. CHEST: Lungs: No airspace consolidation or pulmonary infarct. Minor subsegmental atelectasis in the left lung base. Pleural spaces: Unremarkable. No pneumothorax. No pleural effusion. Heart: Unremarkable. No cardiomegaly. No pericardial effusion. ABDOMEN AND PELVIS: Liver: Fatty liver. Small hypervascular lesion at the dome may represent a flash filling hemangioma or fatty sparing most likely. Follow-up as per institutional protocol. Focal fatty sparing in the liver. Gallbladder and bile ducts: Unremarkable. No calcified stones. No ductal dilation. Pancreas: Unremarkable. No mass. No ductal dilation. Spleen: Statistically benign cystic structure in the spleen. The spleen is upper limits of normal in size. Adrenal glands: Chronically infarcted appearing right adrenal gland or other benign cause of coarse calcification. Normal left adrenal gland. Kidneys and ureters: Unremarkable. No solid mass. No hydronephrosis. Stomach and bowel: Unremarkable. No obstruction. No mucosal thickening. Appendix: No evidence of appendicitis. Intraperitoneal space: Unremarkable. No free air. No significant fluid collection. Urinary bladder: Unremarkable. No mass. Reproductive: Moderate prostatic enlargement. Lymph nodes: Unremarkable. No enlarged lymph nodes. Bones/joints: Chronic healed left rib deformities. No acute fracture or subluxation. Degenerative changes in the spine. No acute fracture or subluxation. Soft tissues: moderate right and small left inguinal hernias containing fat. IMPRESSION: 1. No acute findings. 2. 59 mm infrarenal aortic aneurysm with no rupture. 3. Incidental findings as described. Dictated and Authenticated by: Sarah Bassett MD. Ordering:BOLA Medrano MD
[2021-09-19 19:35] LABS: Bilirubin Negative (Negative); Blood Trace-intact (Negative); Clarity Clear (Clear); Glucose Negative (Negative); Ketones Negative (Negative); Leukocyte Esterase Negative (Negative); Nitrite Negative (Negative); Specific Gravity >= 1.030 (1.005-1.025); Urobilinogen 0.2 EU/dL (Up TO 0.2)
[2021-09-19 19:40] LABS: Bacteria Negative HPF (Negative); C & S Indicated? No; Casts Negative LPF (Negative); Crystals Negative HPF (Negative); Epithelial Cells Negative HPF (Negative); Mucus Negative (Negative); WBC Negative HPF (0-5)
[2021-09-19] MEDS: Lidocaine 5% Patch 1 PATCH TP (19:51)
[2021-09-19] MEDS: traMADol 50 MG TAB PO (19:51)
== END 2021-09-19 20:24 | disposition home or self-care (01) ==
PROVIDERS: Emergency Provider Registered Nurse Emergency; PCP Family Medicine
DX: M54.42 Lumbago with sciatica, left side (principal); E66.9 Obesity, unspecified; Z20.822 Contact with and (suspected) exposure to COVID-19; Z87.891 Personal history of nicotine dependence; I10 Essential (primary) hypertension; I71.9 Aortic aneurysm of unspecified site, without rupture; E11.40 Type 2 diabetes mellitus with diabetic neuropathy, unspecified; Z79.84 Long term (current) use of oral hypoglycemic drugs
CPT/HCPCS: 36415; 71275; 80053; 87635; 96361; 96374; 99284; 99285; 74174; 81003; 81015; 83735; 85025; 85610; J3010; J3490

== ENCOUNTER → 2021-10-02 00:55 | Outpatient (CLI) | payer MEDICARE, MEDICAID, SELFPAY ==
--- NOTE | 2021-10-02 08:41 | DI.MRI_ITS ---
Exam(s) MR LUMBAR SPINE WO EXAM: MR LUMBAR SPINE WO CLINICAL HISTORY: low back pain with left leg weakness, M54.50. TECHNIQUE: Multiplanar multisequence MRI of the Lumbar spine was performed. COMPARISON: CR XR LUMBAR SPINE COMPLETE from 09/10/2021 FINDINGS: Bones: The last intervertebral disc space is designated the L5/S1 level for the numbering purpose of this examination. The vertebral body heights are well maintained. Alignment is satisfactory. Mild d egenerative endplate signal changes are present. Cord: The conus tip ends at the T12 level. It is of normal size and signal intensity. T12-L1: No disc herniations or bulges are present. No central spinal canal or neural foraminal stenos is. L1-2: No disc herniations or bulges are present. No central spinal canal or neural foraminal stenosis . L2-3: There is a mild diffuse disc bulge. No central spinal canal or neural foraminal stenosis. L3-4: There is a moderate size left paracentral disc herniation. It is extruded posterior to the L3 vertebral body. It appears to communicate with the L3-L4 disc. It causes left lateral recess stenos is. There is compression of the left L3 nerve root. No central spinal canal or neural foraminal nayeli nosis. L4-5: There is a diffuse disc bulge. There are degenerative changes of the facets. No significant c entral spinal canal stenosis is seen. There is mild right neural foraminal narrowing. No significan t left neural foraminal stenosis is seen. L5-S1: No disc herniations or bulges are present. No central spinal canal or right neural foraminal s tenosis is seen. There is mild narrowing of the left neural foramen.There are degenerative changes o f the facets. Soft tissues: The visualized SI joints and sacrum are well maintained. The paraspinal soft tissues ar e unremarkable. IMPRESSION: 1. There is a moderate size left paracentral disc herniation at L3-L4 which is extruded posterior to the L3 vertebral body causing left lateral recess stenosis. It compresses the left L3 nerve root. 2. Multilevel degenerative changes in the lumbar spine as described above. DATA REPOSITORY:
== END ==
PROVIDERS: PCP Family Medicine; Visit Provider Family Medicine
DX: M48.061 Spinal stenosis, lumbar region without neurogenic claudication (principal); M51.26 Other intervertebral disc displacement, lumbar region; M47.817 Spondylosis without myelopathy or radiculopathy, lumbosacral region; R53.1 Weakness
CPT/HCPCS: 72148

== ENCOUNTER 2021-11-06 18:02 | Emergency (ER) | payer MEDICARE, MEDICAID, SELFPAY ==
[2021-11-06 18:08] VITALS: BP 164/85; PULSE 101; RESP 22; TEMP 36.8; O2SAT 94
--- NOTE | 2021-11-06 18:30 | DI.CT_ITS ---
Exam(s) CT THORAX ABDOMEN CTA EXAM: CT THORAX ABDOMEN CTA TECHNIQUE: CT angiography of the chest, abdomen and pelvis was performed with bolus infusion of 100 cc of Omnipaque 350. Due to procedure Ali air, an additional 100 cc of Omnipaque 350 was also admini stered. Axial CT angiography was performed with multi-slice acquisition and multi-planar and/or 3D reconstruc tions. COMPARISON: CT CT ABDOMEN PELVIS WO from 08/13/[address] THORAX ABD/PEL CTA from 09/19/2021 FINDINGS: The lungs are predominantly clear with slight atelectasis at the left lung base.. No pleural effusi on. No evidence of pulmonary embolic disease. No thoracic aortic dissection or aneurysm. Major branch es of the thoracic aorta appear normal. No pleural effusion. No mediastinal or hilar adenopathy. Tra cheobronchial tree appears intact. No focal hepatic abnormality seen. Hepatic steatosis noted. No evidence of hydronephrosis or nephrolithiasis. Gallbladder and bile ducts are CT normal. Pancreas is unremarkable. Spleen is unremarkable except for an apparent small stable splenic cyst.. No evidence of urinary tract calcification or obstruction. Incidental right adrenal calcifications n oted, unchanged from prior studies. There is an abdominal aortic aneurysm which is infrarenal. There is an aorto bi-iliac endograft it w hich is patent and there is no evidence of rupture or leakage period. Major branches of the abdomina l aorta appear normal. No abdominal or pelvic adenopathy. Normal appendix. No significant abdominal w all hernia. No focal bowel pathology. IMPRESSION: No evidence of acute vascular abnormality of the chest, abdomen or pelvis. Aorto bi-iliac endograft traversing 5 cm abdominal aortic aneurysm appears stable . RADIATION DOSE DELIVERED: 1,042.48mGy.cm Total DLP 1,042.48mGy.cm Total DLP !Error CTDIvol DATA REPOSITORY: All CT scans at this facility are submitted to the National Radiology Data Registry (NRDR) Dose Index Registry (DIR) with the [employer] ([employer]). RADIATION OPTIMIZATION: All CT scans at this facility use at least one of these dose optimization te chniques: automated exposure control; mA and/or kV adjustment per patient size (includes targeted exa ms where dose is matched to clinical indication); or iterative reconstruction.
[2021-11-06] MEDS: Albuterol 2.5 MG/3 ML INH SOLN VIAL (18:43)
[2021-11-06 18:47] LABS: Source Nasal/Nares
[2021-11-06 18:49] LABS: Lactate 1.3 mmol/L (0.6-1.4)
[2021-11-06 18:50] LABS: HCT 35.3 % (40.0-50.0); MCH 31.7 pg (27.0-33.0); MCV 93 fL (80-95); MPV 9.9 fL (8.0-11.0); Platelet Count 331 10^3/uL (130-400); RBC 3.78 10^6/uL (4.36-5.78); RDW-SD 44.4 fL
[2021-11-06 18:55] LABS: WBC 25.03 10^3/uL (4.4-10.8)
[2021-11-06 19:03] LABS: Absolute Neutrophil Count 21.53 10^3/uL (1.2-6.7); Bands % 4
[2021-11-06 19:04] LABS: Diff Comment Manual Differential; RBC Morphology Normal
[2021-11-06 19:11] LABS: ALT 22 U/L (16-63); AST 15 U/L (15-37); Albumin 3.2 g/dL (3.4-5.0); Alkaline Phosphatase 76 U/L (46-116); Anion Gap 12.9 mmol/L (3-11); BUN 28 mg/dL (7-18); Bilirubin, Total 0.7 mg/dL (0.2-1.0); CO2 25.1 mmol/L (21.0-32.0); CREATININE 1.7 mg/dL (0.70-1.30); Calcium 8.8 mg/dL (8.5-10.1); Chloride 95 mmol/L (98-107); Estimated GFR 40.16 (mL/min/1.73m2); Glucose 153 mg/dL (74-106); NT-proBNP 104 pg/mL (<300); Potassium 3.3 mmol/L (3.5-5.1); Sodium 133 mmol/L (136-145); Total Protein 7.7 g/dL (6.4-8.2); Troponin I < 50 ng/L (<or=60)
[2021-11-06 19:22] LABS: COVID-19 PCR Negative (Negative)
[2021-11-06 19:34] LABS: Bilirubin Negative (Negative); Blood Small (Negative); Clarity Clear (Clear); Glucose Negative (Negative); Ketones 15 mg/dL (Negative); Leukocyte Esterase Trace (Negative); Nitrite Negative (Negative); Specific Gravity 1.025 (1.005-1.025); Urobilinogen 0.2 EU/dL (Up TO 0.2)
[2021-11-06 19:39] LABS: Bacteria Few HPF (Negative); C & S Indicated? Yes; Casts Negative LPF (Negative); Crystals Negative HPF (Negative); Epithelial Cells Few HPF (Negative); Mucus Negative (Negative)
[2021-11-06] MEDS: Omnipaque 350 MG/ML 100 ML BTL IJ (19:48)
[2021-11-06] MEDS: cefTRIAXone 2 GM/50 ML BAG IVPB (19:54)
[2021-11-06] MEDS: Normal Saline 1,000 ML 150 ML IV (19:54)
--- NOTE | 2021-11-06 20:34 | W.ED.GENAD ---
Discharge Plan Disposition Patient Disposition: AGAINST MEDICAL ADVICE Condition: Serious Discharge Details Clinical Impression: Hypoxia, Acute UTI, Acute urinary retention, Leukocytosis Primary Care Provider: Nigel Emerson ED Provider: Laila Mills Home Meds and New Rx's Prescriptions: Continued hydrochlorothiazide 25 mg tablet 50 mg PO DAILY Qty: 180 3RF metoprolol succinate 25 mg tablet extended release 24 hr 25 mg PO DAILY Qty: 90 3RF prednisone 20 mg tablet 40 mg PO DAILY PRN (Reason: shoulder/neck pain) Qty: 14 0RF (DME) syringe with needle 3 mL 22 gauge x 1 syringe See Dose Instructions .ROUTE .MEDSUPPLY Qty: 6 3RF Dose Instruction: As directed Label Comments: pt. states he took it two weeks ago Rx Instructions: As directed twice/month gabapentin 300 mg capsule 300 mg PO QHS Qty: 30 2RF cyclobenzaprine 10 mg tablet 10 mg PO HS PRN (Reason: muscle spasm) Qty: 20 0RF Paxlovid (EUA) 300 mg (150 mg x 2)-100 mg tablet See Rx Instructions PO .COMPLEX Qty: 30 0RF Rx Instructions: take TWO 150 mg tablets of nirmatrelvir with ONE 100 mg tablet of ritonavir twice daily for 5 days PO C-PAP Rx Instructions: [facility] sleep lab, sleep apnea (DME) Inhaler, Assist Devices [Aerochamber Mini] 1 EACH spacer 1 ea Miscellaneous DAILY Qty: 1 0RF epinephrine [EpiPen 2-Rahul] 0.3 MG/0.3 ML auto-injector 0.3 mg IJ PRN Qty: 1 0RF Incruse Ellipta 62.5 mcg/actuation blister with device 1 inh inhalation DAILY Qty: 30 2RF spironolactone [Aldactone] 25 mg tablet 25 mg PO DAILY Qty: 90 3RF metformin 1,000 mg tablet 1,000 mg PO BID Qty: 180 3RF tramadol 50 mg tablet 50 mg PO Q8H PRN (Reason: back pain) Qty: 15 0RF Rx Instructions: Take 1 tablet up to 3 times daily as needed for moderate to severe pain. Do not drive or operate heavy machinery while taking this medication. Please take with food lorazepam 1 mg tablet 1 mg PO ONCE PRN (Reason: claustrophobia) Qty: 3 0RF Rx Instructions: take 30 mins before MRI tamsulosin 0.4 mg capsule See Rx Instructions .ROUTE .COMPLEX Qty: 180 4RF Dose Instruction: TAKE TWO CAPSULES BY MOUTH AT BEDTIME Rx Instructions: TAKE TWO CAPSULES BY MOUTH AT BEDTIME ketorolac 10 mg tablet 10 mg PO QID PRN (Reason: pain) Qty: 14 0RF acetaminophen 500 mg tablet 1,000 mg PO Q8H PRN (Reason: pain) Qty: 90 3RF Discharge Instructions Instructions: Urinary Retention in Men (ED), Urinary Tract Infection in Men (ED), Leukocytosis (ED) Additional Instructions: You are leaving against our medical recommendation, I am concerned as you have a very high white blood cell count and your oxygen levels are low I recommend reassessment urgently in the outpatient setting If you are able to return to the emergency department and advised that Please follow-up with urologist, and listing urologist below, will need to be reassessed from a urinary standpoint Referrals: Temo Armas MD [ [facility] STAFF PHYSICIAN] - Nigel Emerson MD [Primary Care Provider] - Discharge Data Discharge Date/Time-TO BE ENTERED AT DEPARTURE: 11/06/21 21:48 Medical Decision Making Patient appears ill, he has been dyspneic with exertion he has hypoxic with exertion down to 83% on room air at rest between 89 and 91% CTA of the chest abdomen pelvis does not show evidence of acute abnormality Diagnostic labs are similar to many, chronic renal insufficiency Patient began to experience urinary retention while he was in the emergency department is currently being treated outpatient with antibiotics for urinary tract infection, Sauceda catheter was placed, he was given referral to urology If recommended given patient's hypoxia and tachycardia that he be admitted to the hospital, he is declining, he is fully alert, oriented, of decisional capacity that he also needs to leave at his house need to be cared for in the morning per patient. He is aware of the risk of further deterioration in the dementia and is leaving against our medical recommendation He will continue taking his antibiotic and follow-up with urology He will also need close PCP outpatient follow-up hypoxia He is discharged home fully alert, oriented, decisional capacity Lab Data Lab results reviewed: Yes I reviewed the patient's lab results. HPI General Date/Time Provider Initiated Documentation: 11/06/21 18:12. HPI Narrative: This 71-year-old male presents with report of shortness of breath and weakness. He states he is status post AAA repair on October 28. Had follow-up yesterday and was started on antibiotics for urinary tract infection. He denies any fever or chills. He states he feels worse today more short of breath with exertion which is why he presents. He denies any abdominal pain but does report some bladder spasms before he has to urinate. He denies known exacerbating or alleviating factors in addition to dyspnea with exertion. He denies any weight gain, calf pain or swelling. Related Data Home Medications Medication Instructions Recorded Confirmed C-Pap 07/31/12 10/07/21 epinephrine 0.3 mg/0.3 mL 0.3 mg (0.3 mL) IJ PRN #1 mL 08/24/17 10/07/21 injection, auto-injector (EpiPen 2-Rahul) acetaminophen 500 mg tablet 1,000 mg PO Q8H PRN pain #90 tabs 02/27/19 10/07/21 syringe with needle 3 mL 22 gauge #6 ea 04/04/19 10/07/21 x 1 hydrochlorothiazide 25 mg tablet 50 mg PO DAILY #180 tab-caps 03/03/21 10/07/21 gabapentin 300 mg capsule 300 mg PO QHS #30 caps 06/17/21 10/07/21 umeclidinium 62.5 mcg/actuation 1 inh inhalation DAILY #30 ea 07/22/21 10/07/21 blister powder for inhalation (Incruse Ellipta) ketorolac 10 mg tablet 10 mg PO QID PRN pain #14 tabs 08/13/21 10/07/21 metoprolol succinate 25 mg 25 mg PO DAILY #90 tabs 08/19/21 10/07/21 tablet,extended release 24 hr prednisone 20 mg tablet 40 mg PO DAILY PRN shoulder/neck 09/01/21 10/07/21 pain #14 tabs spironolactone 25 mg tablet 25 mg PO DAILY #90 tabs 09/04/21 10/07/21 (Aldactone) cyclobenzaprine 10 mg tablet 10 mg PO HS PRN muscle spasm #20 09/16/21 10/07/21 tabs metformin 1,000 mg tablet 1,000 mg PO BID #180 tabs 09/17/21 10/07/21 tramadol 50 mg tablet 50 mg PO Q8H PRN back pain #15 tabs 09/22/21 10/07/21 nirmatrelvir 300 mg (150 mg x See Rx Instructions PO .COMPLEX 09/24/21 10/07/21 2)-ritonavir 100 mg tablet (EUA) #30 tabs (Paxlovid 300 mg () lorazepam 1 mg tablet 1 mg PO ONCE PRN claustrophobia #3 09/29/21 10/07/21 tabs tamsulosin 0.4 mg capsule See Rx Instructions .Route 10/01/21 10/07/21 .COMPLEX #180 caps Previous Rx's Medication Instructions Recorded epinephrine 0.3 mg/0.3 mL 0.3 mg (0.3 mL) IJ PRN #1 mL 08/24/17 injection, auto-injector (EpiPen 2-Rahul) acetaminophen 500 mg tablet 1,000 mg PO Q8H PRN pain #90 tabs 02/27/19 syringe with needle 3 mL 22 gauge #6 ea 04/04/19 x 1 hydrochlorothiazide 25 mg tablet 50 mg PO DAILY #180 tab-caps 03/03/21 gabapentin 300 mg capsule 300 mg PO QHS #30 caps 06/17/21 umeclidinium 62.5 mcg/actuation 1 inh inhalation DAILY #30 ea 07/22/21 blister powder for inhalation (Incruse Ellipta) ketorolac 10 mg tablet 10 mg PO QID PRN pain #14 tabs 08/13/21 metoprolol succinate 25 mg 25 mg PO DAILY #90 tabs 08/19/21 tablet,extended release 24 hr prednisone 20 mg tablet 40 mg PO DAILY PRN shoulder/neck 09/01/21 pain #14 tabs spironolactone 25 mg tablet 25 mg PO DAILY #90 tabs 09/04/21 (Aldactone) cyclobenzaprine 10 mg tablet 10 mg PO HS PRN muscle spasm #20 09/16/21 tabs metformin 1,000 mg tablet 1,000 mg PO BID #180 tabs 09/17/21 tramadol 50 mg tablet 50 mg PO Q8H PRN back pain #15 tabs 09/22/21 nirmatrelvir 300 mg (150 mg x See Rx Instructions PO .COMPLEX 09/24/21 2)-ritonavir 100 mg tablet (EUA) #30 tabs (Paxlovid 300 mg () lorazepam 1 mg tablet 1 mg PO ONCE PRN claustrophobia #3 09/29/21 tabs tamsulosin 0.4 mg capsule See Rx Instructions .Route 10/01/21 .COMPLEX #180 caps Allergies Allergy/AdvReac Type Severity Reaction Status Date / Time spironolactone AdvReac Intermediate fatigue Verified 10/07/21 10:59 SARAH Inhibitors AdvReac Unknown wiped out Verified 10/07/21 10:59 amlodipine AdvReac Swelling/Ed Verified 10/07/21 10:59 robles ezetimibe AdvReac myalgias, Verified 10/07/21 10:59 wiped out hydrocodone AdvReac Hallucinati Verified 10/07/21 10:59 ons lisinopril AdvReac cough Verified 10/07/21 10:59 losartan AdvReac fatigue Verified 10/07/21 10:59 oxycodone AdvReac Depression Verified 10/07/21 10:59 clams SOB ER Allergy Severe SOB ER Uncoded 10/07/21 10:59 red yeast rice AdvReac Intermediate wiped out Uncoded 10/07/21 10:59 General Stated Complaint: RespSymp THIAGO: 2 Review of Systems All systems reviewed & are unremarkable except as noted in HPI and below PFSH All Active Problems Hypoxia (Acute) Acute UTI (Acute) Acute urinary retention (Acute) Leukocytosis (Acute) HNP (herniated nucleus pulposus), lumbar (Acute) COVID-19 (Acute) Low back pain (Acute) Impacted cerumen, right ear (Acute) SOB (shortness of breath) (Acute) Type 2 diabetes mellitus with diabetic neuropathy, unspecified (Acute) Diabetes mellitus (Acute) Failure of rotator cuff repair (Acute) History of repair of right rotator cuff (Acute 02/2009) History of repair of left rotator cuff (Acute 04/2005) Osteoarthritis of left knee (Acute) Fibula fracture (Acute) Left Hypogonadism (Acute) Neck pain, musculoskeletal (Acute) Shoulder pain, acute (Acute) Hyperplastic colon polyp (Acute) Elevated blood pressure reading (Acute) Tubular adenoma (Acute) 01/24/15 History of tobacco use (Acute) History of esophagogastroduodenoscopy (Acute) Full thickness rotator cuff tear (Acute) Fatigue (Acute) better w/ T replacement recheck levels Atypical chest pain (Acute) Right knee DJD (Chronic) Synvisc injection: 09/18/2018 Ingrown toenail of right foot (Acute) advised to not cut nails too short Screening for colon cancer (Acute) MARCUS (dyspnea on exertion) (Acute) History of total right knee replacement (TKR) (Acute 02/27/19) Peripheral edema (Acute) likely dependency due to morbid obesity Screening for colorectal cancer (Chronic) Benign prostatic hyperplasia (Chronic) 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; LEFT LEG; T3ANO STAGE 2A Obstructive sleep apnea (adult) (pediatric) (Acute) SEVERE with good response to CPAP Onychomycosis (Acute) Peyronie's disease (Acute) Status post arthroscopy of right knee (Chronic) Partial medial and lateral meniscectomies DOS: 04/06/18 Repeat surgery: 06/02/2018 Low testosterone (Chronic) Hypertension (Chronic) H/O shoulder surgery (Chronic) bilateral Medical History Gout Surgical History Colonoscopy - MAC (04/15/04) Rare tics, no polyps;Small HH & fundic gland polyp COLONOSCOPY W/MAC (01/24/15) DR. ULICES EVANS EGD - MAC (04/15/04) History of hernia repair Rotator Cuff Repair (~2005) left and right Family History Mother , 78 Arthritis Father , 82 Alzheimer disease Sister No problems noted. Sister No problems noted. Brother No problems noted. Brother No problems noted. Maternal Grandfather , 83 No problems noted. Paternal Grandfather , 80 No problems noted. Maternal Grandmother , 74 No problems noted. Paternal Grandmother , 80 No problems noted. Son No problems noted. Daughter Epilepsy Social History Smoking/Tobacco Use Status: Former Tobacco Use tobacco type: cigarettes Quit Date: 03/21/07 Tobacco: How many years used: 10 Second Hand Exposure: Yes Smoking risk assessment performed?: Yes Alcohol Intake: current Alcohol Intake frequency: a few times a week Alcohol type: beer Drug use: Never Substance use type: does not use Counseling given: No Details: alcohol:t-3, one beer Caregiver/Support person: No Household members: spouse Housing: house Communication Needs: Hard of Hearing Do you need help understanding health information?: Often Pets and animals: No Sexually active: Yes Do you think of yourself as: straight/heterosexual Current gender identity: male What is your relationship status?: How often do you talk on the phone with friends or family?: three or more times per week How often do you get together with friends or relatives?: once per week How often do you attend confucianist or voodoo services?: decline to answer Do you belong to any clubs or organized social groups?: no Panel score (0-1 are the most socially isolated patients): 2 Mariely/Adventism: None Special mariely needs: No Seatbelt use: sometimes 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 Do you feel safe at home: Yes Do you feel safe in your relationship?: Yes Exam Const General: cooperative, comfortable and no acute distress Eyes Pupils: PERRL Resp Effort & Inspection: normal respiratory effort Auscultation: clear to auscultation bilaterally Cardio Rate: tachycardic Heart Sounds: murmur GI Inspection: normal to inspection Other: Abdomen soft, nontender Skin General skin exam: no rashes or lesions noted Neuro General: patient alert and patient oriented x3 Cranial Nerves: CN's II-XI intact bilaterally Cognition: normal cognition Extrem Other: 1+ edema to bilateral lower extremities distal pulses intact Course Vital Signs Vital signs: Vital Signs Temperature 36.8 C 11/06/21 18:08 Pulse 101 H 11/06/21 18:08 Respiratory Rate 22 11/06/21 18:08 Blood Pressure 164/85 H 11/06/21 18:08 Pulse Oximetry 94 11/06/21 18:08 Temperature 36.8 C 11/06/21 18:08 Temperature Source Temporal Artery Scan 11/06/21 18:08 Pulse 101 H 11/06/21 18:08 Respiratory Rate 22 11/06/21 18:08 Respiratory Effort Labored 11/06/21 18:47 Respiratory Depth Normal 11/06/21 18:47 Blood Pressure 164/85 H 11/06/21 18:08 Blood Pressure Position Sitting 11/06/21 18:08 Pulse Oximetry 94 11/06/21 18:08 Oxygen Delivery Method Room Air 11/06/21 18:08 Oxygen Flow Rate 0 11/06/21 18:08 Lab/Test Results Lab/Test Results: 11/06/21 19:16 Urine - Reflex from Ua Urine Culture - Pending 11/06/21 18:39 Blood Blood Culture - Pending 11/06/21 18:38 Blood Blood Culture - Pending Laboratory Tests Range/Units 11/06/21 11/06/21 11/06/21 18:38 18:38 18:38 WBC (4.4-10.8) 10^3/uL 25.03 H* RBC (4.36-5.78) 10^6/uL 3.78 L Hgb (13.5-17.5) g/dL 12.0 L Hct (40.0-50.0) % 35.3 L MCV (80-95) fL 93 MCH (27.0-33.0) pg 31.7 MCHC (32.0-36.0) % 34.0 RDW (11.8-14.1) % 13.0 Plt Count (130-400) 10^3/uL 331 MPV (8.0-11.0) fL 9.9 Immature Gran % 0.0 Neutrophils % 82.0 Band Neutrophils % 4 Lymphocytes % 6.0 Monocytes % 8.0 Eosinophils % 0.0 Basophils % 0.0 Nucleated RBC % (0.0-0.3) % 0.0 Absolute Neutrophils (1.2-6.7) 10^3/uL 21.53 H Absolute Lymphocytes (1.2-3.4) 10^3/uL 1.50 Absolute Monocytes (0.1-0.8) 10^3/uL 2.00 H Absolute Eosinophils (0.0-0.7) 10^3/uL 0.00 Absolute Basophils (0.0-0.2) 10^3/uL 0.00 RBC Morphology Normal VBG Lactate (0.6-1.4) mmol/L 1.3 Sodium (136-145) mmol/L 133 L Potassium (3.5-5.1) mmol/L 3.3 L Chloride (98-107) mmol/L 95 L Carbon Dioxide (21.0-32.0) mmol/L 25.1 Anion Gap (3-11) mmol/L 12.9 H BUN (7-18) mg/dL 28 H Creatinine (0.70-1.30) mg/dL 1.7 H Estimated GFR/1.73 m2 (mL/min/1.73m2) 40.16 Glucose (74-106) mg/dL 153 H Calcium (8.5-10.1) mg/dL 8.8 Total Bilirubin (0.2-1.0) mg/dL 0.7 AST (15-37) U/L 15 ALT (16-63) U/L 22 Alkaline Phosphatase (46-116) U/L 76 Troponin I (<or=60) ng/L < 50 NT-Pro-B Natriuret Pep (<300) pg/mL 104 Total Protein (6.4-8.2) g/dL 7.7 Albumin (3.4-5.0) g/dL 3.2 L Urine Color (Yellow) Urine Clarity (Clear) Urine pH (5-8) Ur Specific [place] (1.005-1.025) Urine Protein (Negative) mg/dL Urine Ketones (Negative) mg/dL Urine Blood (Negative) Urine Nitrite (Negative) Urine Bilirubin (Negative) Urine Urobilinogen (Up TO 0.2) EU/dL Ur Leukocyte Esterase (Negative) Urine RBC (0-2) HPF Urine WBC (0-5) HPF Ur Epithelial Cells (Negative) HPF Urine Crystals (Negative) HPF Urine Bacteria (Negative) HPF Urine Casts (Negative) LPF Urine Mucus (Negative) Ur Culture Indicated? Urine Glucose (Negative) mg/dL COVID-19 Source SARS-CoV-2 (PCR) (Negative) Range/Units 11/06/21 11/06/21 18:39 19:16 WBC (4.4-10.8) 10^3/uL RBC (4.36-5.78) 10^6/uL Hgb (13.5-17.5) g/dL Hct (40.0-50.0) % MCV (80-95) fL MCH (27.0-33.0) pg MCHC (32.0-36.0) % RDW (11.8-14.1) % Plt Count (130-400) 10^3/uL MPV (8.0-11.0) fL Immature Gran % Neutrophils % Band Neutrophils % Lymphocytes % Monocytes % Eosinophils % Basophils % Nucleated RBC % (0.0-0.3) % Absolute Neutrophils (1.2-6.7) 10^3/uL Absolute Lymphocytes (1.2-3.4) 10^3/uL Absolute Monocytes (0.1-0.8) 10^3/uL Absolute Eosinophils (0.0-0.7) 10^3/uL Absolute Basophils (0.0-0.2) 10^3/uL RBC Morphology VBG Lactate (0.6-1.4) mmol/L Sodium (136-145) mmol/L Potassium (3.5-5.1) mmol/L Chloride (98-107) mmol/L Carbon Dioxide (21.0-32.0) mmol/L Anion Gap (3-11) mmol/L BUN (7-18) mg/dL Creatinine (0.70-1.30) mg/dL Estimated GFR/1.73 m2 (mL/min/1.73m2) Glucose (74-106) mg/dL Calcium (8.5-10.1) mg/dL Total Bilirubin (0.2-1.0) mg/dL AST (15-37) U/L ALT (16-63) U/L Alkaline Phosphatase (46-116) U/L Troponin I (<or=60) ng/L NT-Pro-B Natriuret Pep (<300) pg/mL Total Protein (6.4-8.2) g/dL Albumin (3.4-5.0) g/dL Urine Color (Yellow) Yellow Urine Clarity (Clear) Clear Urine pH (5-8) 6.0 Ur Specific [place] (1.005-1.025) 1.025 Urine Protein (Negative) mg/dL 100 H Urine Ketones (Negative) mg/dL 15 H Urine Blood (Negative) Small H Urine Nitrite (Negative) Negative Urine Bilirubin (Negative) Negative Urine Urobilinogen (Up TO 0.2) EU/dL 0.2 Ur Leukocyte Esterase (Negative) Trace H Urine RBC (0-2) HPF 5-10 H Urine WBC (0-5) HPF 5-10 Ur Epithelial Cells (Negative) HPF Few Urine Crystals (Negative) HPF Negative Urine Bacteria (Negative) HPF Few Urine Casts (Negative) LPF Negative Urine Mucus (Negative) Negative Ur Culture Indicated? Yes Urine Glucose (Negative) mg/dL Negative COVID-19 Source Nasal/Nares SARS-CoV-2 (PCR) (Negative) Negative
[2021-11-06] MEDS: Phenazopyridine 100 MG TAB PO (20:39)
--- NOTE | 2021-11-06 20:42 | DI.VRAD_ITS ---
PROCEDURE INFORMATION: Exam: CTA Chest With Contrast CTA Abdomen With Contrast Exam date and time: 11/06/2021 7:31 PM Age: 71 years old Clinical indication: Other: Shortness of breath S/P aorta repair, dyspnea; Additional info: Wrong exam was started PT received 200 ml in total. 100 ml was administed at wrong time. TECHNIQUE: Imaging protocol: Computed tomographic angiography of the chest with contrast. Computed tomographic angiography of the abdomen with contrast. 3D rendering (Not supervised by radiologist): MIP and/or 3D reconstructed images were created by the technologist. Contrast material: 350; Contrast route: INTRAVENOUS (IV); COMPARISON: CT THORAX ABD/PEL CTA 09/19/2021 7:02 PM FINDINGS: Tubes, catheters and devices: Abdominal aorta bi-iliac endograft in place, which appears patent, without evidence of acute complications. VASCULATURE: Pulmonary arteries: No acute pulmonary emboli. Aorta: Atherosclerotic disease of the thoracic aorta, without aneurysm or dissection. Atherosclerotic disease of the abdominal aorta and iliac arteries, with infrarenal abdominal aortic aneurysm measuring 5.4 cm in AP diameter by 5.1 cm in transverse dimension (series 9, image a 66). No evidence of leakage or rupture. Celiac trunk and mesenteric arteries: No occlusion or significant stenosis. Renal arteries: No occlusion or significant stenosis. CHEST: Lungs: Minimal bibasilar atelectasis or scarring. Pleural spaces: Unremarkable. No pneumothorax. No pleural effusion. Heart: Moderate three-vessel coronary artery atherosclerotic disease. ABDOMEN AND PELVIS: Liver: No mass. Gallbladder and bile ducts: Unremarkable. No calcified stones. No ductal dilation. Pancreas: Unremarkable. No mass. No ductal dilation. Spleen: Splenic pseudocyst. Adrenal glands: Dystrophic calcifications within the right adrenal gland, possibly secondary to prior hemorrhage. Kidneys and ureters: Simple right renal cyst, for which no further evaluation necessary. Stomach and bowel: Unremarkable. No obstruction. No mucosal thickening. Intraperitoneal space: Unremarkable. No free air. No significant fluid collection. Lymph nodes: Unremarkable. No enlarged lymph nodes. Bones/joints: Multilevel thoracolumbar spine degenerative disc space narrowing minimal osteophyte formation. Soft tissues: Unremarkable. IMPRESSION: No acute abnormality. Dictated and Authenticated by: Juan Alberto Raphael MD. Ordering:GUERA Ulloa MD
== END 2021-11-06 21:48 | disposition left against medical advice (07) ==
PROVIDERS: Emergency Provider Physician Assistant; PCP Family Medicine
DX: R09.02 Hypoxemia (principal); N39.0 Urinary tract infection, site not specified; R33.9 Retention of urine, unspecified; D72.829 Elevated white blood cell count, unspecified; R00.0 Tachycardia, unspecified; R01.1 Cardiac murmur, unspecified; Z87.891 Personal history of nicotine dependence; Z53.20 Procedure and treatment not carried out because of patient's decision for unspecified reasons; B96.5 Pseudomonas (aeruginosa) (mallei) (pseudomallei) as the cause of diseases classified elsewhere; N18.9 Chronic kidney disease, unspecified; Z20.822 Contact with and (suspected) exposure to COVID-19
CPT/HCPCS: 36415; 51702; 71275; 74175; 80053; 87040; 87077; 87635; 94640; 96361; 96365; 99284; 99285; 81003; 81015; 83605; 83880; 84484; 85025; 87086; 87186; J3490; J7613

== ENCOUNTER 2021-11-11 10:02 | Outpatient (CLI) | payer MEDICARE, MEDICAID, SELFPAY ==
[2021-11-11 10:31] LABS: Abs Immature Grans 0.77 10^3/uL (0.0-0.06); HCT 38.5 % (40.0-50.0); HGB 13.1 g/dL (13.5-17.5); MCH 31.5 pg (27.0-33.0); MCV 93 fL (80-95); MPV 9.4 fL (8.0-11.0); Platelet Count 441 10^3/uL (130-400); RBC 4.16 10^6/uL (4.36-5.78); RDW-SD 44.2 fL; WBC 11.47 10^3/uL (4.4-10.8)
[2021-11-11 11:05] LABS: Absolute Lymphocyte Count 2.41 10^3/uL (1.2-3.4); Absolute Monocyte Count 1.03 10^3/uL (0.1-0.8); Absolute Neutrophil Count 8.03 10^3/uL (1.2-6.7); Atypical Lymphocytes % 1; Bands % 2; Diff Comment Manual Differential; RBC Morphology Normal
[2021-11-11 11:25] LABS: Anion Gap 12.1 mmol/L (3-11); BUN 35 mg/dL (7-18); CO2 26.9 mmol/L (21.0-32.0); CREATININE 2.4 mg/dL (0.70-1.30); Calcium 9.4 mg/dL (8.5-10.1); Chloride 97 mmol/L (98-107); Estimated GFR 26.98 (mL/min/1.73m2); Glucose 186 mg/dL (74-106); Potassium 3.6 mmol/L (3.5-5.1); Sodium 136 mmol/L (136-145)
== END 2021-11-11 10:03 | disposition home or self-care (01) ==
LOC: LBO 10:07
PROVIDERS: PCP Family Medicine; Visit Provider Family Medicine
DX: D64.9 Anemia, unspecified (principal); E87.1 Hypo-osmolality and hyponatremia
CPT/HCPCS: 36415; 80048; 85025

== ENCOUNTER 2021-12-16 11:08 | Outpatient (CLI) | payer MEDICARE, MEDICAID, SELFPAY ==
[2021-12-16 12:35] LABS: Anion Gap 10.2 mmol/L (3-11); BUN 40 mg/dL (7-18); CO2 26.8 mmol/L (21.0-32.0); CREATININE 1.7 mg/dL (0.70-1.30); Calcium 9.6 mg/dL (8.5-10.1); Chloride 103 mmol/L (98-107); Glucose 158 mg/dL (74-106); Potassium 4.2 mmol/L (3.5-5.1); Sodium 140 mmol/L (136-145)
== END 2021-12-16 11:09 | disposition home or self-care (01) ==
LOC: LOS 11:09
PROVIDERS: PCP Family Medicine; Visit Provider Family Medicine
DX: E87.1 Hypo-osmolality and hyponatremia (principal)
CPT/HCPCS: 36415; 80048

== ENCOUNTER → 2022-03-03 02:15 | Outpatient (CLI) | payer MEDICARE, MEDICAID, SELFPAY ==
--- NOTE | 2022-03-03 06:30 | DI.RAD_ITS ---
Exam(s) RF BARIUM SWALLOW EXAM: RF BARIUM SWALLOW CLINICAL HISTORY: Feeling of food trapping in the posterior pharynx,lump in throat,r22.1 TECHNIQUE: 2D and realtime digital imaging was performed. CONTRAST MATERIAL: Oral barium contrast was administered. COMPARISON: CT CT THORAX ABDOMEN CTA from 11/06/2021 FINDINGS: CHEST X-RAY: The heart and pulmonary vasculature are within normal limits. No focal consolidating inf iltrates. There is scarring in the left lung base. No pleural effusion or pneumothorax is present. The bones are within normal limits for the patient's age. There is again seen elevation of the left h emidiaphragm. ESOPHAGRAM: The esophagus is patent with no evidence for erosions, fold thickening, strictures, or ma sses. With regards to the motility, there is a normal primary stripping wave. No tertiary contraction s were noted. There is no hiatal hernia or gastroesophageal reflux. IMPRESSION: Unremarkable barium swallow. RADIATION DOSE DELIVERED: kee Marino=44.8 mGy
[2022-03-03] MEDS: Simethicone/Sod Bicarb/Cit Ac, 4 gram PACKET 1 PACKET PO (09:51)
[2022-03-03] MEDS: Barium Sulfate 700 MG TAB PO (09:52)
[2022-03-03] MEDS: Barium Sulfate 60% W/V 355 ML BTL 150 ML PO (09:53)
[2022-03-03] MEDS: Barium Sulfate 98% W/W 140 ML BTL PO (09:54)
== END ==
PROVIDERS: PCP Family Medicine; Visit Provider Registered Nurse Maternal Newborn
DX: R22.1 Localized swelling, mass and lump, neck (principal); R13.19 Other dysphagia; J98.6 Disorders of diaphragm
CPT/HCPCS: 74221; J3490

== ENCOUNTER 2022-04-08 11:40 | Outpatient (CLI) | payer MEDICARE, MEDICAID, SELFPAY ==
--- NOTE | 2022-04-08 08:15 | DI.RAD_ITS ---
Exam(s) XR KNEE LT 3V AP,LAT,SELENA EXAM: XR KNEE LT 3V AP,LAT,SELENA CLINICAL HISTORY: left knee pain. TECHNIQUE: 2D digital imaging was performed. COMPARISON: CR XR KNEE LT 4V+ from 08/21/2020 CR XR KNEE RT 2V AP,LAT from 04/08/2022 FINDINGS: 3 views No evidence fracture nor obvious joint effusion. Mild narrowing of the medial joint space evident. Three not progressed from previous. On the lateral view there are prominent enthesophytes off the an terosuperior and anteroinferior aspects the patella again noted, unchanged. IMPRESSION: No radiographic change compared to 08/21/2020. DATA REPOSITORY: RADIATION DOSE DELIVERED:
--- NOTE | 2022-04-08 08:15 | DI.RAD_ITS ---
Exam(s) XR KNEE RT 2V AP,LAT EXAM: XR KNEE RT 2V AP,LAT CLINICAL HISTORY: right knee discomfort. TECHNIQUE: 2D digital imaging was performed. COMPARISON: CR XR KNEE RT 2V AP,LAT from 08/21/2020 CR XR KNEE LT 4V+ from 08/21/2020 FINDINGS: Two views: Stable appearance of the components of prosthesis. No fracture or loosening evident. IMPRESSION: DATA REPOSITORY: RADIATION DOSE DELIVERED:
== END 2022-04-08 11:41 | disposition home or self-care (01) ==
LOC: DIORS 11:41
PROVIDERS: PCP Family Medicine; Referring Provider Family Medicine; Visit Provider Physician Assistant
DX: M16.12 Unilateral primary osteoarthritis, left hip (principal); Z96.651 Presence of right artificial knee joint; M16.11 Unilateral primary osteoarthritis, right hip; M17.12 Unilateral primary osteoarthritis, left knee; M70.51 Other bursitis of knee, right knee; M70.52 Other bursitis of knee, left knee
CPT/HCPCS: 73562; 99213; 73560

== ENCOUNTER → 2022-04-19 09:21 | Outpatient (BNVA) | payer MEDICARE, MEDICAID, SELFPAY | PROVIDERS: PCP Family Medicine; Referring Provider Registered Nurse Maternal Newborn; Visit Provider Physical Therapy Assistant | DX: R09.89 Other specified symptoms and signs involving the circulatory and respiratory systems (principal); D17.0 Benign lipomatous neoplasm of skin and subcutaneous tissue of head, face and neck; K21.9 Gastro-esophageal reflux disease without esophagitis | CPT/HCPCS: 99213 ==

== ENCOUNTER 2022-04-22 02:11 | Outpatient (CLI) | payer MEDICARE, MEDICAID, SELFPAY ==
--- NOTE | 2022-04-22 08:00 | DI.RAD_ITS ---
Exam(s) RF JOINT INJECTION FLUORO GUID EXAM: RF JOINT INJECTION FLUORO GUID CLINICAL HISTORY: R HIP INJ UNDER FLUORO, RT HIP PAIN, M25.551. TECHNIQUE: 2D and realtime digital imaging was performed. COMPARISON: No exams were available for comparison FINDINGS: Fluoroscopy was provided for Dr. Olmos for guidance with performing a right hip injection. Please see procedure note for details. Fluoro time: 4seconds RADIATION DOSE DELIVERED: Nedr=0.54 mGy
--- NOTE | 2022-04-22 08:00 | DI.RAD_ITS ---
Exam(s) RF JOINT INJECTION FLUORO GUID EXAM: RF JOINT INJECTION FLUORO GUID CLINICAL HISTORY: L HIP INJ UNDER FLUORO,LT HIP PAIN, M25.552. TECHNIQUE: 2D and realtime digital imaging was performed. COMPARISON: No exams were available for comparison FINDINGS: Fluoroscopy was provided for Dr. Olmos for guidance with performing a left hip injection. Please see procedure note for details. Fluoro time: 6seconds RADIATION DOSE DELIVERED: kee Marino=1.33 mGy
[2022-04-22] MEDS: Bupivacaine 0.5% Pres-Free 10 ML VIAL IJ ×2 (13:54→13:59)
[2022-04-22] MEDS: methylPREDNISolone ACETATE 80 MG/ML VIAL IM ×2 (13:55→13:59)
--- NOTE | 2022-04-22 15:23 | W.PROCNOTE ---
Date of service: 04/22/22 Time of Service: 14:00 Procedure Note Date of procedure: 04/22/22 Procedure: Bilateral Hip Injection with Fluoroscopic Guidance Surgeon/Proceduralist/Physician: Troy Olmos Procedure Diagnosis: Bilateral Hip impingement and pain Procedure Indications: Fred has had persistent pain of the BILATERAL hip and groin. Noninvasive measures have been tried. To serve as both diagnostic and therapeutic, an injection under fluoroscopy was recommended. I had discussed the risks of the procedure and the patient elected to proceed. Procedure Description: Fred was greeted in the flouroscopy room. The consent was reviewed with the patient and signed. The patient was then placed in the supine position on the fluoroscopy table. The RIGHT hip was then prepped with Chloraprep. The anterolateral injection starting point was identiifed by bony landmarks and fluoroscopy. The skin and soft tissue in the tract of the injection was anesthetized with 1% Lidocaine. A spinal needle was then inserted deep into the hip joint at the level of the lateral femoral neck under fluoroscopic guidance. A small amount of Omnipaque solution was injected to confirm intraarticular placement. Once confirmed, the hip was injected with 5cc of 0.5% Bupivicaine and 80mg of Depo-Medrol. A bandaid was placed on the injection site. The LEFT hip was then prepped with Chloraprep. The anterolateral injection starting point was identiifed by bony landmarks and fluoroscopy. The skin and soft tissue in the tract of the injection was anesthetized with 1% Lidocaine. A spinal needle was then inserted deep into the hip joint at the level of the lateral femoral neck under fluoroscopic guidance. A small amount of Omnipaque solution was injected to confirm intraarticular placement. Once confirmed, the hip was injected with 5cc of 0.5% Bupivicaine and 80mg of Depo-Medrol. A bandaid was placed on the injection site. The patient tolerated the procedure well.
== END 2022-04-22 02:31 ==
PROVIDERS: PCP Family Medicine; Visit Provider Student in an Organized Health Care Education/Training Program
DX: M25.552 Pain in left hip (principal); M25.551 Pain in right hip
CPT/HCPCS: 20610; 77002; J1040

== ENCOUNTER → 2022-06-28 14:19 | Outpatient (BNVA) | payer MEDICARE, MEDICAID, SELFPAY | PROVIDERS: PCP Family Medicine; Referring Provider Family Medicine; Visit Provider Student in an Organized Health Care Education/Training Program | DX: M16.11 Unilateral primary osteoarthritis, right hip (principal); M16.12 Unilateral primary osteoarthritis, left hip | CPT/HCPCS: 99213 ==

== ENCOUNTER → 2022-07-15 14:42 | Outpatient (BNVA) | payer MEDICARE, MEDICAID, SELFPAY | PROVIDERS: PCP Family Medicine; Referring Provider Family Medicine; Visit Provider Physical Therapy Assistant | DX: R09.89 Other specified symptoms and signs involving the circulatory and respiratory systems (principal); D17.0 Benign lipomatous neoplasm of skin and subcutaneous tissue of head, face and neck | CPT/HCPCS: 99213 ==

== ENCOUNTER 2022-09-13 11:59 | Outpatient (CLI) | payer MEDICARE, MEDICAID, SELFPAY ==
--- NOTE | 2022-09-13 11:15 | DI.RAD_ITS ---
Exam(s) XR HIP PELVIS ADULT BL EXAM: XR HIP PELVIS ADULT BL CLINICAL HISTORY: bilat hip pain. TECHNIQUE: 2D digital imaging was performed of the pelvis and bilateral hips. Three images were obt ained. AP pelvis and lateral views of both hips were obtained. COMPARISON: No exams were available for comparison FINDINGS: BONES: No acute fracture is present. No bony destructive lesion is seen. JOINTS: No dislocation present. There are mild degenerative changes of the hips bilaterally character ized by joint space narrowing and mild spurring, left greater than right. SOFT TISSUE: Normal. IMPRESSION: Osteoarthritis of the hips, left greater than right. DATA REPOSITORY: RADIATION DOSE DELIVERED:
== END 2022-09-13 12:00 | disposition home or self-care (01) ==
LOC: DIORS 11:59
PROVIDERS: PCP Family Medicine; Referring Provider Family Medicine; Visit Provider Student in an Organized Health Care Education/Training Program
DX: M16.11 Unilateral primary osteoarthritis, right hip (principal); M16.12 Unilateral primary osteoarthritis, left hip
CPT/HCPCS: 73521; 99214

== ENCOUNTER 2022-11-01 12:32 | Outpatient (CLI) | payer MEDICARE, SELFPAY ==
[2022-11-01 11:35] LABS: Hemoglobin A1C 7.1 % (<5.7)
== END 2022-11-01 12:33 | disposition home or self-care (01) ==
PROVIDERS: PCP Family Medicine; Visit Provider Family Medicine
DX: E11.51 Type 2 diabetes mellitus with diabetic peripheral angiopathy without gangrene (principal)
CPT/HCPCS: 36415; 83036

== ENCOUNTER 2022-12-09 03:34 | Outpatient (CLI) | payer MEDICARE, SELFPAY ==
[2022-12-09 09:12] LABS: HCT 42.2 % (40.0-50.0); HGB 14.3 g/dL (13.5-17.5); MCH 31.9 pg (27.0-33.0); MCHC 33.9 % (32.0-36.0); MCV 94 fL (80-95); MPV 9.3 fL (8.0-11.0); Platelet Count 300 10^3/uL (130-400); RBC 4.48 10^6/uL (4.36-5.78); RDW-SD 45.1 fL; WBC 9.07 10^3/uL (4.4-10.8)
[2022-12-09 09:59] LABS: Anion Gap 14.1 mmol/L (3-11); BUN 49 mg/dL (7-18); CO2 21.9 mmol/L (21.0-32.0); Calcium 9.8 mg/dL (8.5-10.1); Chloride 100 mmol/L (98-107); Estimated GFR 17.41 (mL/min/1.73m2); Glucose 162 mg/dL (74-106); Potassium 4.7 mmol/L (3.5-5.1); Sodium 136 mmol/L (136-145)
[2022-12-09 10:30] LABS: CREATININE 3.6 mg/dL (0.70-1.30)
== END 2022-12-09 03:35 | disposition home or self-care (01) ==
PROVIDERS: PCP Family Medicine; Visit Provider Student in an Organized Health Care Education/Training Program
DX: M16.12 Unilateral primary osteoarthritis, left hip (principal); M25.552 Pain in left hip; Z01.818 Encounter for other preprocedural examination; Z01.812 Encounter for preprocedural laboratory examination
CPT/HCPCS: 36415; 80048; 85027

== ENCOUNTER 2022-12-16 11:25 | Outpatient (CLI) | payer MEDICARE, SELFPAY ==
[2022-12-16 12:30] LABS: Anion Gap 9.3 mmol/L (3-11); BUN 53 mg/dL (7-18); CO2 24.7 mmol/L (21.0-32.0); CREATININE 3.4 mg/dL (0.70-1.30); Chloride 103 mmol/L (98-107); Estimated GFR 18.64 (mL/min/1.73m2); Glucose 215 mg/dL (74-106); Potassium 4.5 mmol/L (3.5-5.1); Sodium 137 mmol/L (136-145)
== END 2022-12-16 11:26 | disposition home or self-care (01) ==
LOC: LOS 11:26
PROVIDERS: PCP Family Medicine; Referring Provider Family Medicine; Visit Provider Family Medicine
DX: E87.1 Hypo-osmolality and hyponatremia (principal); I10 Essential (primary) hypertension; N17.9 Acute kidney failure, unspecified
CPT/HCPCS: 36415; 80048

== ENCOUNTER → 2022-12-22 03:06 | Outpatient (CLI) | payer MEDICARE, MEDICAID, SELFPAY ==
--- NOTE | 2022-12-22 08:33 | DI.US_ITS ---
Exam(s) US RENAL EXAM: US RENAL CLINICAL HISTORY: acute renal failure,N17.9 TECHNIQUE: Ultrasound of both kidneys performed using standard protocol. COMPARISON: CT CT THORAX ABDOMEN CTA from 11/06/2021 FINDINGS: RIGHT KIDNEY: Measures 11.8 cm in length. No cysts evident. Normal cortical thickness and corticomedullary differen tiation .No solid masses No intrarenal calculi nor hydronephrosis. LEFT KIDNEY: Measures 0.7 cm in length. No cysts evident. Normal cortical thickness and corticomedullary differen tiaion. No solids masses. No intrarenal calculi nor hydonephrosis. URINARY BLADDER: Prevoid volume is 97 cc Postvoid volume is done cc No evidence of obvious bladder mass, realizing limitations of interpretation with only 97 cc of intra luminal urine. Ureterovesical jets: Neither visualized IMPRESSION: 1. No significant ultrasound findings in the kidneys. No hydronephrosis. 2. There was only 97 cc of urine in the bladder at time of this examination. No obvious bladder mas ses evident nor intravesicular calcli. DATA REPOSITORY:
== END ==
PROVIDERS: PCP Family Medicine; Visit Provider Family Medicine
DX: N17.9 Acute kidney failure, unspecified (principal)
CPT/HCPCS: 76770

== ENCOUNTER 2023-01-01 20:08 | Emergency (ER) | payer MEDICARE, MEDICAID, SELFPAY ==
[2023-01-01] VITALS (19 sets, daily range): BP systolic 158–203; BP diastolic 72–98; PULSE 80–101; RESP 16–25; TEMP 37.3; O2SAT 94–98
--- NOTE | 2023-01-01 20:15 | RT.EKG_ITS ---
APPROVED REPORT Exam: Resting ECG Reason for Exam: shortness of breath Patient Location: E HR:90 bpm ECG Measurements Heart Rate 90 AXIS NC 151 P 54 QRSd 101 QRS -31 QT 375 T 99 QTc 460 Conclusion Sinus rhythm...normal P axis, V-rate 60- 99 Left axis deviation...QRS axis (-30,-90) Nonspecific T abnormalities, lateral leads...T <-0.10mV, I aVL V5 V6
[2023-01-01 20:46] LABS: Abs Immature Grans 0.07 10^3/uL (0.0-0.06); Absolute Basophil Count 0.04 10^3/uL (0.0-0.2); Absolute Eosinophil Count 0.01 10^3/uL (0.0-0.7); Absolute Lymphocyte Count 1.03 10^3/uL (1.2-3.4); Absolute Monocyte Count 0.44 10^3/uL (0.1-0.8); Absolute Neutrophil Count 6.89 10^3/uL (1.2-6.7); Basophils % 0.5; Eosinophils % 0.1; HCT 36.5 % (40.0-50.0); Immature Grans % 0.8; Lymphocytes % 12.1; MCH 31.3 pg (27.0-33.0); MCHC 32.9 % (32.0-36.0); MCV 95 fL (80-95); MPV 9.9 fL (8.0-11.0); Monocytes % 5.2; Neutrophils % 81.3; Platelet Count 248 10^3/uL (130-400); RBC 3.83 10^6/uL (4.36-5.78); RDW 13.2 % (11.8-14.1); RDW-SD 46.5 fL; WBC 8.48 10^3/uL (4.4-10.8)
[2023-01-01 21:10] LABS: ALT 25 U/L (16-63); AST 13 U/L (15-37); Albumin 4.1 g/dL (3.4-5.0); Alkaline Phosphatase 87 U/L (46-116); Anion Gap 10.6 mmol/L (3-11); BUN 45 mg/dL (7-18); Bilirubin, Total 0.4 mg/dL (0.2-1.0); CO2 23.4 mmol/L (21.0-32.0); CREATININE 2.3 mg/dL (0.70-1.30); Chloride 105 mmol/L (98-107); Glucose 191 mg/dL (74-106); Magnesium 1.7 mg/dL (1.8-2.4); Potassium 4.6 mmol/L (3.5-5.1); Sodium 139 mmol/L (136-145); Total Protein 7.8 g/dL (6.4-8.2)
[2023-01-01 21:12] LABS: NT-proBNP 84 pg/mL (<300); Troponin I < 50 ng/L (<or=60)
[2023-01-01] MEDS: Furosemide 40 MG/4 ML VIAL IVP (21:15)
--- NOTE | 2023-01-01 21:40 | DI.RAD_ITS ---
Exam(s) XR CHEST 2V PA LATERAL EXAM: XR CHEST 2V PA LATERAL CLINICAL HISTORY: shortness of breath TECHNIQUE: 2D digital imaging was performed. COMPARISON: CR,RF RF BARIUM SWALLOW from 03/03/2022 FINDINGS: HEART: Normal size. Aorta: Not dilated. PULMONARY VASCULATURE: Normal. LUNGS: The left diaphragm is again noted to be elevated. There is a linear atelectasis superior to t he left diaphragm. Lungs are otherwise clear. PLEURAL SPACE: No pleural effusion or pneumothorax. BONE:Unremarkable for age. IMPRESSION: No acute abnormality. Mild linear atelectasis left lung base.. DATA REPOSITORY: RADIATION DOSE DELIVERED:
--- NOTE | 2023-01-01 21:40 | DI.RAD_ITS ---
Exam(s) XR FOOT RT COMPLETE EXAM: XR FOOT RT COMPLETE CLINICAL HISTORY: trauma great and 2nd toe injury. TECHNIQUE: 2D digital imaging was performed. Three views. COMPARISON: No exams were available for comparison FINDINGS: BONES: There is a transverse fracture through the mid shaft of the distal phalanx of the great toe. There is an additional vertically oriented component extending to the tuft. Both fracture components are nondisplaced. There is no extension to the articular surface. Additional nondisplaced transver se fracture through the distal shaft of the middle phalanx of the 2nd toe.. Multiple rounded bony er osions seen in the 1st metatarsal head. Additional erosion is seen at the lateral base of the 1st pr oximal phalanx. Findings could represent gout. Additional lucencies seen in the distal aspect of th e 2nd middle phalanx. Small heel spurs. JOINTS: No dislocation present. Severe degenerative changes of the 1st MTP joint. There is soft tis fidel swelling and slight calcification seen medial to the 1st metatarsal head. The findings could ind icate gout. Degenerative changes also seen in the tarsal metatarsal joints. SOFT TISSUE: Swelling adjacent to 1st metatarsal head with some cough soft tissue calcification. Sof t tissue swelling around 1st and 2nd toes. IMPRESSION: Nondisplaced comminuted fracture of the distal phalanx of the great toe. Nondisplaced fracture throu gh the middle phalanx of the 2nd toe. Erosions seen in 1st metatarsal head and base of proximal phalanx of great toe are suspicious for gou t. DATA REPOSITORY: RADIATION DOSE DELIVERED:
[2023-01-01] MEDS: Magnesium Oxide 400 MG TAB 800 MG PO (21:47)
[2023-01-01 22:04] LABS: COVID-19 PCR Negative (Negative); Influenza A PCR Negative (Negative); Influenza B PCR Negative (Negative); RSV PCR Negative (Negative)
[2023-01-01 22:09] LABS: Source Nasopharynx
--- NOTE | 2023-01-01 22:12 | DI.VRAD_ITS ---
PROCEDURE INFORMATION: Exam: XR Chest Exam date and time: 01/01/2023 9:30 PM Age: 72 years old Clinical indication: Shortness of breath TECHNIQUE: Imaging protocol: Radiologic exam of the chest. Views: 2 views. COMPARISON: CT THORAX ABDOMEN CTA 11/06/2021 7:31 PM FINDINGS: Lungs: Elevation of left hemidiaphragm with left basilar subsegmental atelectasis. Lungs otherwise clear. Pleural spaces: Unremarkable. No pleural effusion. No pneumothorax. Heart/Mediastinum: Unremarkable. No cardiomegaly. Diaphragm: Gastric bubble with fluid level subjacent to the left hemidiaphragm. Bones/joints: Unremarkable. IMPRESSION: No acute findings. Dictated and Authenticated by: Ja Medina MD. Ordering:ALINE Israel MD
--- NOTE | 2023-01-01 22:27 | DI.VRAD_ITS ---
PROCEDURE INFORMATION: Exam: XR Right Foot Exam date and time: 01/01/2023 9:36 PM Age: 72 years old Clinical indication: Pain; Right; Patient HX: Dropped object on foot 3 weeks ago TECHNIQUE: Imaging protocol: Radiologic exam of the right foot. Views: 3 or more views. COMPARISON: MR lower joint RT wo 02/23/2018 4:04 PM FINDINGS: Bones/joints: There is an acute nondisplaced fracture of the distal phalanx of the 1st digit. The distal and the 1st metatarsal is expanded with internal lucencies with hallux valgus deformity. Although this might be severe degenerative change, it could be sequelae of inflammatory arthritis or bone neoplasm. A 1.7 cm osseous fragment at the medial aspect of this abnormal portion of the 1st metatarsal appears partially contiguous with the 1st metatarsal and may be an osteochondroma. Recommend correlation with history and further evaluation per hospital protocol. Soft tissues: Normal. IMPRESSION: 1. There is an acute nondisplaced fracture of the distal phalanx of the 1st digit. 2. The distal and the 1st metatarsal is expanded with internal lucencies with hallux valgus deformity. Although this might be severe degenerative change, it could be sequelae of inflammatory arthritis or bone neoplasm. A 1.7 cm osseous fragment at the medial aspect of this abnormal portion of the 1st metatarsal appears partially contiguous with the 1st metatarsal and may be an osteochondroma. Recommend correlation with history and further evaluation per hospital protocol. Dictated and Authenticated by: Ja Medina MD. Ordering:ALINE Israel MD
--- NOTE | 2023-01-01 22:54 | W.ED.GENAD ---
Discharge Plan Disposition Patient Disposition: Home Condition: Improving Discharge Details Clinical Impression: Fluid overload, unspecified, Essential hypertension, MARCUS (dyspnea on exertion), Renal insufficiency, Closed fracture of right great toe Primary Care Provider: Nigel Emerson ED Provider: Jhonatan Allen Home Meds and New Rx's Prescriptions: New furosemide 20 mg tablet 20 mg PO DAILY Qty: 3 0RF Continued amitriptyline 10 mg tablet 10 mg PO QHS Qty: 90 3RF metformin 500 mg tablet extended release 24 hr 1,000 mg PO BID Qty: 360 3RF metoprolol succinate 25 mg tablet extended release 24 hr 25 mg PO DAILY Qty: 90 3RF Rx Instructions: dose increase 03/17/22 dose decrease 06/17/22 (tired) doxazosin 4 mg tablet 4 mg PO QHS Qty: 30 1RF C-PAP Rx Instructions: [facility] [place] lab, sleep apnea (DME) Inhaler, Assist Devices [Aerochamber Mini] 1 EACH spacer 1 ea Miscellaneous DAILY Qty: 1 0RF epinephrine [EpiPen 2-Rahul] 0.3 mg/0.3 mL auto-injector 0.3 mg IJ PRN Qty: 1 0RF acetaminophen 500 mg tablet 1,000 mg PO Q8H PRN (Reason: pain) Qty: 90 3RF Discharge Instructions Instructions: Dyspnea (ED), Hypertension (ED) Additional Instructions: Please make sure that you continue to eat nutritious diet including appropriate amount of potassium and other electrolytes given that we are putting you on Lasix for the next 3 days. Return immediately to the emergency department for any new or significant worsening of symptoms otherwise you will need to follow-up with your primary care provider for further discussion of any further medication changes including further diuretics as needed. Referrals: Nigel Emerson MD [Primary Care Provider] - 3 days Medical Decision Making Patient presenting to the emergency department for chief complaint of shortness of breath. Patient reports 2 weeks ago his primary care provider changed medication and stopped his diuretic due to his kidney function. He has been taking the new medications as prescribed but over the past week he has noted significant increased shortness of breath especially with activity but then this evening even at rest he started having some shortness of breath. Patient denies any chest pain, fever chills, cough, cold symptoms, or other cardiac complaints. He does state that he did injure his right great toe by dropping a large object on it 3 weeks ago and never got it checked out. Physical exam shows hypertension, mild tachypnea, clear lung sounds with no crackles or diminishment noted, patient does have 1+ bilateral pitting edema to the lower extremities and reports a 10 pound weight gain since medication change. Patient does have swelling and tenderness to right great toe and some slight redness to second toe. We will plan on checking patient's labs including BNP, EKG, chest x-ray and x-ray of the foot. I do suspect some level of fluid overload after review of notes given patient's history of cessation of his diuretic so pending results will give 40 of Lasix. Please see physician interpretation for full interpretation of EKG but upon my review patient is in sinus rhythm, with no findings to suggest acute STEMI. Reviewed patient's labs and CBC shows a slight but chronic anemia, BUN is 45 with a creatinine of 2.3 and a GFR of 29 which is actually markedly improved from last set of labs performed, labs are otherwise noncontributory with noted nondetectable troponin and BNP of only 84. Patient was negative for COVID flu RSV, chest x-ray showed no acute changes from chronic findings and patient does have a nondisplaced fracture of the great toe. Did offer patient a hard sole shoe with discussion of foot fracture and he stated that he did not think he would wear this given that he has already had the broken toe for greater than 3 weeks. He did have significant urinary output that was not directly measured but patient stated almost near resolution of symptoms. Patient no longer had any shortness of breath with activity. I do feel this is reassuring especially given labs and that patient can be safely discharged home. Did give patient 3-day supply of Lasix to help with the remaining fluid and place patient on follow-up list with primary care provider for reassessment and further medication adjustment as needed. After discussion of diagnosis and plan of care patient has no further needs, questions, or concerns and states clear understanding to return to the emergency department for any worsening symptoms. This documentation was generated using Driftrockation system, please disregard any oddities of phrase or misspellings. Medical Records Medical records reviewed: Yes I reviewed the patient's medical records. Medical records narrative: Reviewed previous primary care labs and visit note Imaging Data Radiologic Study: Imaging: X-Ray Radiologist's impression: Exam(s) PROCEDURE INFORMATION: Exam: XR Right Foot Exam date and time: 01/01/2023 9:36 PM Age: 72 years old Clinical indication: Pain; Right; Patient HX: Dropped object on foot 3 weeks ago TECHNIQUE: Imaging protocol: Radiologic exam of the right foot. Views: 3 or more views. COMPARISON: MR lower joint RT wo 02/23/2018 4:04 PM FINDINGS: Bones/joints: There is an acute nondisplaced fracture of the distal phalanx of the 1st digit. The distal and the 1st metatarsal is expanded with internal lucencies with hallux valgus deformity. Although this might be severe degenerative change, it could be sequelae of inflammatory arthritis or bone neoplasm. A 1.7 cm osseous fragment at the medial aspect of this abnormal portion of the 1st metatarsal appears partially contiguous with the 1st metatarsal and may be an osteochondroma. Recommend correlation with history and further evaluation per hospital protocol. Soft tissues: Normal. IMPRESSION: 1. There is an acute nondisplaced fracture of the distal phalanx of the 1st digit. 2. The distal and the 1st metatarsal is expanded with internal lucencies with hallux valgus deformity. Although this might be severe degenerative change, it could be sequelae of inflammatory arthritis or bone neoplasm. A 1.7 cm osseous fragment at the medial aspect of this abnormal portion of the 1st metatarsal appears partially contiguous with the 1st metatarsal and may be an osteochondroma. Recommend correlation with history and further evaluation per hospital protocol. Radiologic Study #2: Attestation: I personally reviewed and interpreted this imaging study as follows: Imaging: X-Ray Radiologist's impression: Exam(s) PROCEDURE INFORMATION: Exam: XR Chest Exam date and time: 01/01/2023 9:30 PM Age: 72 years old Clinical indication: Shortness of breath TECHNIQUE: Imaging protocol: Radiologic exam of the chest. Views: 2 views. COMPARISON: CT THORAX ABDOMEN CTA 11/06/2021 7:31 PM FINDINGS: Lungs: Elevation of left hemidiaphragm with left basilar subsegmental atelectasis. Lungs otherwise clear. Pleural spaces: Unremarkable. No pleural effusion. No pneumothorax. Heart/Mediastinum: Unremarkable. No cardiomegaly. Diaphragm: Gastric bubble with fluid level subjacent to the left hemidiaphragm. Bones/joints: Unremarkable. IMPRESSION: No acute findings. Lab Data Lab results reviewed: Yes I reviewed the patient's lab results. HPI General Mode of arrival: ambulatory. Date/Time Provider Initiated Documentation: 01/01/23 20:09. Limitations to Documentation: no limitations. Information obtained by: patient and RN notes reviewed. History of Present Illness 72 year old M presents to the emergency department with the chief complaint of Shortness of breath, weight gain, described as moderate, Quality is described as other (Denies pain or discomfort), Patient started experiencing this week(s) (1) and it has been constant. No relieving factors improve symptom(s), Movement worsens symptoms . Patient notes no other symptoms.. Patient did receive the following treatments prior to arrival, none Related Data Home Medications Medication Instructions Recorded Confirmed C-Pap 07/31/12 12/16/22 acetaminophen 500 mg tablet 1,000 mg (2 x 500 mg) PO Q8H PRN 02/27/19 01/01/23 pain #90 tabs amitriptyline 10 mg tablet 10 mg PO QHS #90 tabs 06/17/22 01/01/23 metformin 500 mg tablet,extended 1,000 mg (2 x 500 mg) PO BID #360 06/17/22 01/01/23 release 24 hr tabs metoprolol succinate 25 mg 25 mg PO DAILY #90 tabs 06/17/22 01/01/23 tablet,extended release 24 hr epinephrine 0.3 mg/0.3 mL 0.3 mg (0.3 mL) IJ PRN #1 mL 08/25/22 01/01/23 injection, auto-injector (EpiPen 2-Rahul) doxazosin 4 mg tablet 4 mg PO QHS #30 tabs 12/16/22 01/01/23 furosemide 20 mg tablet 20 mg PO DAILY #3 tabs 01/01/23 Previous Rx's Medication Instructions Recorded acetaminophen 500 mg tablet 1,000 mg (2 x 500 mg) PO Q8H PRN 02/27/19 pain #90 tabs amitriptyline 10 mg tablet 10 mg PO QHS #90 tabs 06/17/22 metformin 500 mg tablet,extended 1,000 mg (2 x 500 mg) PO BID #360 06/17/22 release 24 hr tabs metoprolol succinate 25 mg 25 mg PO DAILY #90 tabs 06/17/22 tablet,extended release 24 hr epinephrine 0.3 mg/0.3 mL 0.3 mg (0.3 mL) IJ PRN #1 mL 08/25/22 injection, auto-injector (EpiPen 2-Rahul) doxazosin 4 mg tablet 4 mg PO QHS #30 tabs 12/16/22 furosemide 20 mg tablet 20 mg PO DAILY #3 tabs 01/01/23 Allergies Allergy/AdvReac Type Severity Reaction Status Date / Time shrimp Allergy Severe tongue Verified 01/01/23 20:19 swelling spironolactone AdvReac Intermediate fatigue Verified 01/01/23 20:19 SARAH Inhibitors AdvReac Unknown wiped out Verified 01/01/23 20:19 amlodipine AdvReac Swelling/Ed Verified 01/01/23 20:19 robles ezetimibe AdvReac myalgias, Verified 01/01/23 20:19 wiped out hydrocodone AdvReac Hallucinati Verified 01/01/23 20:19 ons lisinopril AdvReac cough Verified 01/01/23 20:19 losartan AdvReac fatigue Verified 01/01/23 20:19 oxycodone AdvReac Depression Verified 01/01/23 20:19 clams SOB ER Allergy Severe SOB ER Uncoded 01/01/23 20:19 red yeast rice AdvReac Intermediate wiped out Uncoded 01/01/23 20:19 General Stated Complaint: RespSymp THIAGO: 3 Review of Systems Constitutional Constitutional: Denies chills, Denies fever(s), Denies malaise and Reports weight gain (10 pounds since medication change) Cardiovascular Cardiovascular: Reports as per HPI, Denies chest pain, Denies chest pain with activity, Denies syncope, Denies irregular heart rhythm, Reports leg edema, Denies palpitations, Reports dyspnea and Reports dyspnea on exertion Respiratory Respiratory: Denies cough, Denies hemoptysis, Reports dyspnea and Reports dyspnea on exertion Gastrointestinal Gastrointestinal: Denies abdominal pain, Denies nausea and Denies vomiting Neurologic Neurologic: Denies syncope Psychiatric Psychiatric: Denies anxiety Endocrine Endocrine: Denies cold intolerance, Denies heat intolerance and Denies palpitations PFSH All Active Problems (Updated 01/01/23 @ 23:16 by Jhonatan Allen NP) Closed fracture of right great toe (Acute) Renal insufficiency (Chronic) Fluid overload, unspecified (Acute) Acute renal failure (Acute) Obesity (Chronic) Lipoma of neck (Acute) Pes anserinus bursitis of both knees (Acute) Degenerative joint disease of right hip (Acute) Degenerative joint disease of left hip (Chronic) Diabetic neuropathy (Acute) bilateral feet - at night Globus sensation (Acute) Lump in throat (Acute) Gas bloat syndrome (Acute) HNP (herniated nucleus pulposus), lumbar (Acute) COVID-19 (Acute) Low back pain (Acute) Impacted cerumen, right ear (Acute) SOB (shortness of breath) (Acute) Type 2 diabetes mellitus with diabetic neuropathy, unspecified (Acute) Diabetes mellitus (Acute) Failure of rotator cuff repair (Acute) Osteoarthritis of left knee (Acute) Fibula fracture (Acute) Left Hypogonadism (Acute) Neck pain, musculoskeletal (Acute) Shoulder pain, acute (Acute) Hyperplastic colon polyp (Acute) Elevated blood pressure reading (Acute) Tubular adenoma (Acute) 01/24/15 History of tobacco use (Acute) History of esophagogastroduodenoscopy (Acute) Fatigue (Acute) better w/ T replacement recheck levels Right knee DJD (Chronic) Synvisc injection: 09/18/2018 Ingrown toenail of right foot (Acute) advised to not cut nails too short Screening for colon cancer (Acute) MARCUS (dyspnea on exertion) (Acute) Peripheral edema (Acute) likely dependency due to morbid obesity Screening for colorectal cancer (Chronic) Benign prostatic hyperplasia (Chronic) 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 Essential hypertension (Acute) cough on SARAH-I Gastroesophageal reflux disease (Acute) small hiatal hernia EGD 03/2004 Hearing loss (Acute) bilateral Hyperlipidemia (Acute 07/10/12) intolerant to statins and Zetia Increased body mass index (Acute) Lactose intolerance (Chronic) possible Malignant melanoma of skin of lower limb (Acute 05/23/13) [facility] [place]; LEFT LEG; T3ANO STAGE 2A Obstructive sleep apnea (adult) (pediatric) (Acute) SEVERE with good response to CPAP Onychomycosis (Acute) Peyronie's disease (Acute) Low testosterone (Chronic) Hypertension (Chronic) Medical History Gout Surgical History History of AAA (abdominal aortic aneurysm) repair 10/28/2021 [facility] [place] History of repair of right rotator cuff (02/2009) History of repair of left rotator cuff (04/2005) History of total right knee replacement (TKR) (02/27/19) History of hernia repair Status post arthroscopy of right knee Partial medial and lateral meniscectomies DOS: 04/06/18 Repeat surgery: 06/02/2018 Rotator Cuff Repair (~2005) left and right EGD - MAC (04/15/04) Colonoscopy - MAC (04/15/04) Rare tics, no polyps;Small HH & fundic gland polyp COLONOSCOPY W/MAC (01/24/15) DR. ULICES EVANS Family History Mother , 78 Arthritis Father , 82 Alzheimer disease Sister No problems noted. Sister No problems noted. Brother No problems noted. Brother No problems noted. Maternal Grandfather , 83 No problems noted. Paternal Grandfather , 80 No problems noted. Maternal Grandmother , 74 No problems noted. Paternal Grandmother , 80 No problems noted. Son No problems noted. Daughter Epilepsy Social History Smoking/Tobacco Use Status: Former Tobacco Use tobacco type: cigarettes Quit Date: 03/21/07 Tobacco: How many years used: 10 Second Hand Exposure: Yes Smoking risk assessment performed?: Yes Alcohol Intake: current Alcohol Intake frequency: a few times a week Alcohol type: beer Drug use: Never Substance use type: marijuana Counseling given: No Details: alcohol:t-3, one beer Caregiver/Support person: No Household members: spouse Housing: house Communication Needs: Hard of Hearing Do you need help understanding health information?: Often Pets and animals: No Sexually active: Yes Do you think of yourself as: straight/heterosexual Current gender identity: male What is your relationship status?: How often do you talk on the phone with friends or family?: three or more times per week How often do you get together with friends or relatives?: once per week How often do you attend mormon or adventism services?: decline to answer Do you belong to any clubs or organized social groups?: no Panel score (0-1 are the most socially isolated patients): 2 Mariely/Hinduism: None Special mariely needs: No Seatbelt use: sometimes Drive 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 Do you feel safe at home: Yes Do you feel safe in your relationship?: Yes Exam Const General: cooperative, comfortable, no acute distress, not diaphoretic and not ill appearing Nutritional Appearance: obese Orientation: alert, awake and oriented x3 Limitations: mental status not altered Neck Neck: normal visual inspection, full ROM, trachea midline, supple and no anterior neck swelling Carotids: normal carotid upstroke and no bruits Chest Chest: normal inspection of the chest Resp Effort & Inspection: normal respiratory effort and able to speak in complete sentences Auscultation: clear to auscultation bilaterally Cardio Jugular venous pressure: no JVD Palpation: normal PMI Rate: regular rate Rhythm: regular rhythm Heart Sounds: S1 normal, S2 normal, no click, no gallops, no murmurs and no rubs Bruits: no carotid bruits Pulses: radial pulses present bilaterally 2+ GI Inspection: obesity Skin General skin exam: no rashes or lesions noted Neuro General: patient alert, patient awake, patient oriented x3, tone normal and moves all extremities Extrem General: edema Laterality: bilateral (1+) Course Vital Signs Vital signs: Vital Signs Temperature 37.3 C 01/01/23 20:13 Pulse 101 H 01/01/23 20:13 Respiratory Rate 23 01/01/23 20:13 Blood Pressure 203/88 H 01/01/23 20:13 Pulse Oximetry 96 01/01/23 20:13 Temperature 37.3 C 01/01/23 20:13 Temperature Source Temporal Artery Scan 01/01/23 20:13 Pulse 81 01/01/23 21:16 Pulse 83 01/01/23 21:16 Respiratory Rate 22 01/01/23 21:16 Respiratory Effort Normal 01/01/23 20:40 Respiratory Depth Normal 01/01/23 20:39 Blood Pressure 163/77 H 01/01/23 21:16 Blood Pressure Mean 107 01/01/23 21:16 Blood Pressure Position Sitting 01/01/23 20:13 Pulse Oximetry 95 01/01/23 21:16 Oxygen Delivery Method Room Air 01/01/23 20:13 Oxygen Flow Rate 0 01/01/23 20:13 Pain Level 0 01/01/23 20:13 Lab/Test Results Lab/Test Results: Laboratory Tests Range/Units 01/01/23 01/01/23 20:30 21:24 WBC (4.4-10.8) 10^3/uL 8.48 RBC (4.36-5.78) 10^6/uL 3.83 L Hgb (13.5-17.5) g/dL 12.0 L Hct (40.0-50.0) % 36.5 L MCV (80-95) fL 95 MCH (27.0-33.0) pg 31.3 MCHC (32.0-36.0) % 32.9 RDW (11.8-14.1) % 13.2 Plt Count (130-400) 10^3/uL 248 MPV (8.0-11.0) fL 9.9 Immature Gran % 0.8 Neutrophils % 81.3 Lymphocytes % 12.1 Monocytes % 5.2 Eosinophils % 0.1 Basophils % 0.5 Nucleated RBC % (0.0-0.3) % 0.0 Absolute Neutrophils (1.2-6.7) 10^3/uL 6.89 H Absolute Lymphocytes (1.2-3.4) 10^3/uL 1.03 L Absolute Monocytes (0.1-0.8) 10^3/uL 0.44 Absolute Eosinophils (0.0-0.7) 10^3/uL 0.01 Absolute Basophils (0.0-0.2) 10^3/uL 0.04 Sodium (136-145) mmol/L 139 Potassium (3.5-5.1) mmol/L 4.6 Chloride (98-107) mmol/L 105 Carbon Dioxide (21.0-32.0) mmol/L 23.4 Anion Gap (3-11) mmol/L 10.6 BUN (7-18) mg/dL 45 H Creatinine (0.70-1.30) mg/dL 2.3 H Est GFR (CKD-EPI 2020) (mL/min/1.73m2) 29.80 Glucose (74-106) mg/dL 191 H Calcium (8.5-10.1) mg/dL 9.0 Magnesium (1.8-2.4) mg/dL 1.7 L Total Bilirubin (0.2-1.0) mg/dL 0.4 AST (15-37) U/L 13 L ALT (16-63) U/L 25 Alkaline Phosphatase (46-116) U/L 87 Troponin I (<or=60) ng/L < 50 NT-Pro-B Natriuret Pep (<300) pg/mL 84 Total Protein (6.4-8.2) g/dL 7.8 Albumin (3.4-5.0) g/dL 4.1 COVID-19 Source Nasopharynx SARS-CoV-2 (PCR) (Negative) Negative Influenza Type A (PCR) (Negative) Negative Influenza Type B (PCR) (Negative) Negative RSV (PCR) (Negative) Negative
--- NOTE | 2023-01-01 22:56 | NUR.NOTE ---
Pt placed on care management referral PCP Ki, patient to be seen early next week per BLUE Allen.
== END 2023-01-01 23:10 | disposition home or self-care (01) ==
PROVIDERS: Emergency Provider Nurse Practitioner Family; PCP Family Medicine
DX: E87.70 Fluid overload, unspecified (principal); I10 Essential (primary) hypertension; R06.09 Other forms of dyspnea; N28.9 Disorder of kidney and ureter, unspecified; S92.425A Nondisplaced fracture of distal phalanx of left great toe, initial encounter for closed fracture; S92.525A Nondisplaced fracture of middle phalanx of left lesser toe(s), initial encounter for closed fracture; W20.8XXA Other cause of strike by thrown, projected or falling object, initial encounter; Z20.822 Contact with and (suspected) exposure to COVID-19; E11.42 Type 2 diabetes mellitus with diabetic polyneuropathy; Z79.84 Long term (current) use of oral hypoglycemic drugs; Z79.899 Other long term (current) drug therapy
CPT/HCPCS: 80053; 87637; 93005; 99283; 71046; 73630; 83735; 83880; 84484; 85025; 93010; J1940

== ENCOUNTER 2023-01-14 11:24 | Outpatient (CLI) | payer MEDICARE, SELFPAY ==
[2023-01-14 11:05] LABS: Anion Gap 10.6 mmol/L (3-11); BUN 47 mg/dL (7-18); CO2 25.4 mmol/L (21.0-32.0); CREATININE 3.5 mg/dL (0.70-1.30); Chloride 107 mmol/L (98-107); Estimated GFR 18.01 (mL/min/1.73m2); Glucose 233 mg/dL (74-106); Potassium 4.6 mmol/L (3.5-5.1); Sodium 143 mmol/L (136-145)
== END 2023-01-14 11:25 | disposition home or self-care (01) ==
LOC: LBO 11:24
PROVIDERS: PCP Family Medicine; Visit Provider Family Medicine
DX: E87.1 Hypo-osmolality and hyponatremia (principal)
CPT/HCPCS: 36415; 80048

== ENCOUNTER 2023-02-03 11:55 | Observation (INO) | payer MEDICARE, MEDICAID, SELFPAY ==
[2023-02-03] VITALS (7 sets, daily range): BP systolic 119–189; BP diastolic 39–99; PULSE 68–95; RESP 16–18; TEMP 36.3–36.7; O2SAT 95–99
[2023-02-03 12:37] LABS: Abs Immature Grans 0.04 10^3/uL (0.0-0.06); Absolute Basophil Count 0.04 10^3/uL (0.0-0.2); Absolute Eosinophil Count 0.18 10^3/uL (0.0-0.7); Absolute Lymphocyte Count 1.53 10^3/uL (1.2-3.4); Absolute Monocyte Count 0.49 10^3/uL (0.1-0.8); Basophils % 0.6; Eosinophils % 2.7; HCT 35.2 % (40.0-50.0); Immature Grans % 0.6; Lymphocytes % 22.9; MCHC 34.1 % (32.0-36.0); MCV 94 fL (80-95); MPV 9.9 fL (8.0-11.0); Monocytes % 7.3; Neutrophils % 65.9; Platelet Count 242 10^3/uL (130-400); RBC 3.75 10^6/uL (4.36-5.78); RDW 13.2 % (11.8-14.1); RDW-SD 45.8 fL; WBC 6.68 10^3/uL (4.4-10.8)
--- NOTE | 2023-02-03 12:37 | ED.GENADUL_ITS ---
Discharge Plan Disposition Patient Disposition: Admit to [facility] Discharge Details Clinical Impression: Acute renal failure, Gross hematuria, Acute urinary retention Admit Date/Time: 02/03/23 14:41 Admit Provider: Temo Armas Attending Provider: Temo Armas Primary Care Provider: Nigel Emerson ED Provider: Laila Mills Discharge Data Discharge Date/Time-TO BE ENTERED AT DEPARTURE: 02/03/23 15:54 Medical Decision Making 72-year-old male presents with gross hematuria with clots, difficulty urinating 230 cc in his bladder, CT was scanned for further evaluation and 3.5 cm clot noted in bladder versus mass As patient is having difficulty voiding with bloody clots, three-way Sauceda catheter was placed with irrigation, urology was consulted, was initially going to admit hospital service but recommended to admit to urology, hospitalist will consult with urology and sounds with Dr. Armas will admit the patient Hemodynamically stable, pending urinalysis History of renal failure, baseline creatinine of 2.4, BUN of [address] admission orders remains hemodynamically stable throughout encounter HPI General Date/Time Provider Initiated Documentation: 02/03/23 12:07 . HPI Narrative: This 72-year-old male with history of renal insufficiency, hypogonadism, diabetes, hyperlipidemia, hypertension presents with report of gross hematuria that started approximately 24 hours prior to arrival, clots noted. States he is having some dysuria. Denies any is doing chest pain or shortness of breath. Related Data Home Medications Medication Instructions Recorded Confirmed C-Pap 07/31/12 01/18/23 acetaminophen 500 mg tablet 1,000 mg (2 x 500 mg) PO Q8H PRN 02/27/19 01/18/23 pain #90 tabs amitriptyline 10 mg tablet 10 mg PO QHS #90 tabs 06/17/22 01/18/23 metformin 500 mg tablet,extended 1,000 mg (2 x 500 mg) PO BID #360 06/17/22 01/18/23 release 24 hr tabs metoprolol succinate 25 mg 25 mg PO DAILY #90 tabs 06/17/22 01/18/23 tablet,extended release 24 hr epinephrine 0.3 mg/0.3 mL 0.3 mg (0.3 mL) IJ PRN #1 mL 08/25/22 01/18/23 injection, auto-injector (EpiPen 2-Rahul) doxazosin 8 mg tablet 8 mg PO QHS #90 tabs 01/18/23 furosemide 20 mg tablet 20 mg PO DAILY #30 tabs 02/02/23 Previous Rx's Medication Instructions Recorded acetaminophen 500 mg tablet 1,000 mg (2 x 500 mg) PO Q8H PRN 02/27/19 pain #90 tabs amitriptyline 10 mg tablet 10 mg PO QHS #90 tabs 06/17/22 metformin 500 mg tablet,extended 1,000 mg (2 x 500 mg) PO BID #360 06/17/22 release 24 hr tabs metoprolol succinate 25 mg 25 mg PO DAILY #90 tabs 06/17/22 tablet,extended release 24 hr epinephrine 0.3 mg/0.3 mL 0.3 mg (0.3 mL) IJ PRN #1 mL 08/25/22 injection, auto-injector (EpiPen 2-Rahul) doxazosin 8 mg tablet 8 mg PO QHS #90 tabs 01/18/23 furosemide 20 mg tablet 20 mg PO DAILY #30 tabs 02/02/23 Allergies Allergy/AdvReac Type Severity Reaction Status Date / Time shrimp Allergy Severe tongue Verified 01/18/23 09:14 swelling spironolactone AdvReac Intermediate fatigue Verified 01/18/23 09:14 SARAH Inhibitors AdvReac Unknown wiped out Verified 01/18/23 09:14 amlodipine AdvReac Swelling/Ed Verified 01/18/23 09:14 robles ezetimibe AdvReac myalgias, Verified 01/18/23 09:14 wiped out hydrocodone AdvReac Hallucinati Verified 01/18/23 09:14 ons lisinopril AdvReac cough Verified 01/18/23 09:14 losartan AdvReac fatigue Verified 01/18/23 09:14 oxycodone AdvReac Depression Verified 01/18/23 09:14 clams SOB ER Allergy Severe SOB ER Uncoded 01/18/23 09:14 red yeast rice AdvReac Intermediate wiped out Uncoded 01/18/23 09:14 General Stated Complaint: Urinary THIAGO: 3 PFSH All Active Problems (Updated 02/05/23 @ 16:48 by JEANINE Andersen) Acute urinary retention (Acute) Gross hematuria (Acute) Acute renal failure (Acute) Obesity (Chronic) Lipoma of neck (Acute) Pes anserinus bursitis of both knees (Acute) Degenerative joint disease of right hip (Acute) Degenerative joint disease of left hip (Chronic) Diabetic neuropathy (Acute) bilateral feet - at night Globus sensation (Acute) Lump in throat (Acute) Gas bloat syndrome (Acute) HNP (herniated nucleus pulposus), lumbar (Acute) COVID-19 (Acute) Low back pain (Acute) Impacted cerumen, right ear (Acute) SOB (shortness of breath) (Acute) Type 2 diabetes mellitus with diabetic neuropathy, unspecified (Acute) Diabetes mellitus (Acute) Failure of rotator cuff repair (Acute) Osteoarthritis of left knee (Acute) Fibula fracture (Acute) Left Hypogonadism (Acute) Neck pain, musculoskeletal (Acute) Shoulder pain, acute (Acute) Hyperplastic colon polyp (Acute) Elevated blood pressure reading (Acute) Tubular adenoma (Acute) 01/24/15 History of tobacco use (Acute) History of esophagogastroduodenoscopy (Acute) Fatigue (Acute) better w/ T replacement recheck levels Right knee DJD (Chronic) Synvisc injection: 09/18/2018 Ingrown toenail of right foot (Acute) advised to not cut nails too short Screening for colon cancer (Acute) MARCUS (dyspnea on exertion) (Acute) Peripheral edema (Acute) likely dependency due to morbid obesity Screening for colorectal cancer (Chronic) Benign prostatic hyperplasia (Chronic) 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 Essential hypertension (Acute) cough on SARAH-I Gastroesophageal reflux disease (Acute) small hiatal hernia EGD 03/2004 Hearing loss (Acute) bilateral Hyperlipidemia (Acute 07/10/12) intolerant to statins and Zetia Increased body mass index (Acute) Lactose intolerance (Chronic) possible Malignant melanoma of skin of lower limb (Acute 05/23/13) [facility] [place]; T3ANO STAGE 2A Obstructive sleep apnea (adult) (pediatric) (Acute) SEVERE with good response to CPAP Onychomycosis (Acute) Peyronie's disease (Acute) Low testosterone (Chronic) Hypertension (Chronic) Medical History Gout Surgical History History of AAA (abdominal aortic aneurysm) repair 10/28/2021 [facility] [place] History of repair of right rotator cuff (02/2009) History of repair of left rotator cuff (04/2005) History of total right knee replacement (TKR) (02/27/19) History of hernia repair Status post arthroscopy of right knee Partial medial and lateral meniscectomies DOS: 04/06/18 Repeat surgery: 06/02/2018 Rotator Cuff Repair (~2005) left and right EGD - MAC (04/15/04) Colonoscopy - MAC (04/15/04) Rare tics, no polyps;Small HH & fundic gland polyp COLONOSCOPY W/MAC (01/24/15) DR. ULICES EVANS Family History Mother , 78 Arthritis Father , 82 Alzheimer disease Sister No problems noted. Sister No problems noted. Brother No problems noted. Brother No problems noted. Maternal Grandfather , 83 No problems noted. Paternal Grandfather , 80 No problems noted. Maternal Grandmother , 74 No problems noted. Paternal Grandmother , 80 No problems noted. Son No problems noted. Daughter Epilepsy Social History Smoking/Tobacco Use Status: Former Tobacco Use tobacco type: cigarettes Quit Date: 03/21/07 Tobacco: How many years used: 10 Second Hand Exposure: Yes Smoking risk assessment performed?: Yes Alcohol Intake: current Alcohol Intake frequency: a few times a week Alcohol type: beer Drug use: Never Substance use type: marijuana Counseling given: No Details: alcohol:t-3, one beer THC gummy at night to sleep Caregiver/Support person: No Household members: spouse Housing: house Communication Needs: Hard of Hearing Do you need help understanding health information?: Often Pets and animals: No Sexually active: Yes Do you think of yourself as: straight/heterosexual Current gender identity: male What is your relationship status?: How often do you talk on the phone with friends or family?: three or more times per week How often do you get together with friends or relatives?: once per week How often do you attend druze or methodist services?: decline to answer Do you belong to any clubs or organized social groups?: no Panel score (0-1 are the most socially isolated patients): 2 Mariely/Yazidi: None Special mariely needs: No Seatbelt use: sometimes Drive intox or ride w/intox superintendent drivers: No Do you feel safe at home: Yes Do you feel safe in your relationship?: Yes Course Vital Signs Vital signs: Vital Signs Temperature 36.7 C 02/03/23 11:58 Pulse 95 H 02/03/23 11:58 Respiratory Rate 18 02/03/23 11:58 Blood Pressure 185/78 H 02/03/23 11:58 Pulse Oximetry 95 02/03/23 11:58 Temperature 36.7 C 02/03/23 11:58 Temperature Source Skin 02/03/23 11:58 Pulse 95 H 02/03/23 11:58 Respiratory Rate 18 02/03/23 11:58 Respiratory Effort Normal 02/03/23 12:02 Blood Pressure 185/78 H 02/03/23 11:58 Blood Pressure Position Sitting 02/03/23 11:58 Pulse Oximetry 99 02/03/23 12:04 Oxygen Delivery Method Room Air 02/03/23 12:04 Oxygen Flow Rate 0 02/03/23 11:58 Pain Level 0 02/03/23 12:02
--- NOTE | 2023-02-03 12:49 | DI.CT_ITS ---
Exam(s) CT ABDOMEN PELVIS WO EXAM: CT ABDOMEN PELVIS WO CLINICAL HISTORY: gross hematuria, clots. TECHNIQUE: Imaging Protocol: Axial computed tomography images with coronal and sagittal reformatted images were created and reviewed. COMPARISON: CT CT THORAX ABD/PEL CTA from 09/19/[address] THORAX ABDOMEN CTA from 11/06/2021 US US RENAL from 12/22/2022 FINDINGS: Lung Bases: Exam limited by respiratory motion. Left diaphragm is again noted to be elevated. There i s left basilar scarring similar to prior. Liver: Enlarged. Fatty infiltration. No measurable mass. Gallbladder and biliary tract: No radiodense calculus. No biliary ductal dilation. Pancreas: No abnormal calcifications or inflammatory process. Spleen: Normal size. Kidneys: Normal size, contour and axis.No radiodense stones or obstructive uropathy. No masses seen. Adrenal glands: No mass is seen. Calcification again noted in the right adrenal gland. Lymph nodes: Within normal limits. Vasculature: Status post aortic aneurysm repair. No change in appearance. Bladder:No stone. No gross wall thickening. A 3.4 x 2.8 by 3.5 centimeter rounded high attenuation f ocus in the posterosuperior portion of the bladder appears to arise from the superior posterior wall. Findings suspicious for bladder mass. Clot is also possibility. Bowel: No obstruction. No bowel wall thickening. Peritoneal cavity: No ascites.No free air. No focal collection. No mesenteric inflammatory response. Reproductive organs: Enlarged prostate. Bones: Unremarkable for age. Soft Tissues: Bilateral fatty containing inguinal hernias, right greater than left, extending into th e level the scrotum. IMPRESSION: 3.5 centimeter rounded lesion in the bladder, clot versus mass. Cystoscopy recommended. RADIATION DOSE DELIVERED: Total DLP Total DLP DATA REPOSITORY: All CT scans at this facility are submitted to the National Radiology Data Registry (NRDR) Dose Index Registry (DIR) with the [employer] (ACR). RADIATION OPTIMIZATION: All CT scans at this facility use at least one of these dose optimization te chniques: automated exposure control; mA and/or kV adjustment per patient size (includes targeted exa ms where dose is matched to clinical indication); or iterative reconstruction.
[2023-02-03 13:05] LABS: ALT 25 U/L (16-63); AST 16 U/L (15-37); Alkaline Phosphatase 77 U/L (46-116); Anion Gap 12.3 mmol/L (3-11); BUN 43 mg/dL (7-18); Bilirubin, Total 0.6 mg/dL (0.2-1.0); CO2 23.7 mmol/L (21.0-32.0); CREATININE 2.4 mg/dL (0.70-1.30); Calcium 9.1 mg/dL (8.5-10.1); Chloride 105 mmol/L (98-107); Estimated GFR 28.32 (mL/min/1.73m2); Glucose 175 mg/dL (74-106); Potassium 4.1 mmol/L (3.5-5.1); Sodium 141 mmol/L (136-145); Total Protein 6.9 g/dL (6.4-8.2)
[2023-02-03] MEDS: Normal Saline 500 ML IV (13:08)
[2023-02-03] MEDS: Lidocaine 2% Jelly 11 ML SYR UR (13:56)
[2023-02-03 14:13] LABS: Source Nasal/Nares
[2023-02-03] MEDS: Finasteride 5 MG TAB PO (14:23)
--- NOTE | 2023-02-03 15:05 | W.PM.HP.N ---
Date of service: 02/03/23 Time of Service: 16:56 Assessment and Plan Assessment and plan (1) Gross hematuria: Status: Acute Assessment and plan: We will maintain current annulus bladder irrigation overnight to see if we are able to remove the clots from his bladder. If so, we will discontinue the irrigation in the morning and allow him to go home. If the clots have not cleared, we will plan a cystoscopy and clot evacuation. Ultimately, even if he does not require clot evacuation emergently, he will need a cystoscopy to evaluate the underlying cause for the hematuria. This could either be done in the office as an outpatient or in the operating room as an outpatient. I was able to review previous CT scans from [facility]. A scan from about 3 months ago showed no mass in the bladder, so I suspect the majority of the mass seen on our CT scan will be clot. There still could be a small underlying tumor. History of Present Illness History of Present Illness Chief Complaint: Gross hematuria Narrative: This is a 72-year-old gentleman who has a long history of BPH. He was previously on Flomax. He was recently transitioned off Flomax and onto doxazosin to help with his blood pressure along with his voiding symptoms. He has never had a urologic surgery, but he did develop urinary retention following an endovascular procedure on his aorta. He had a Sauceda catheter placed and passed a voiding trial a few days later. At his last urology appointment with the [facility] urology team, his residual urine was about 170 cc. There was some discussion about increasing his dose of tamsulosin at that time or adding finasteride. He does have a history of kidney stones which he has passed on his own. He has never required ureteroscopy. He came to our emergency department today with a 24-hour history of hematuria and clots. He did not come to the ER yesterday because he knew he had an appointment with nephrology at [facility] today. When he saw the nephrology providers, he was told he would need to be evaluated in the emergency department. He then drove back here to [place] and presented to our ED. He has had some urinary hesitancy and difficulty voiding. He has not had any fever or chills. He does have a history of urinary tract infection with Pseudomonas having grown in his urine back when he went into retention. He is not on any anticoagulants. He has no known bleeding disorders. Review of Systems Narrative: No fevers or chills No vision change or dysphasia Hx Diabetes. No thyroid dysfunction Sleep apnea - uses CPAP. No hemoptysis No chest pain or palpitations No hepatitis, ulcers, jaundice No seizures, strokes Hx melanoma. No bleeding disorders or anemia Hx gout and DJD. PFSH All Active Problems (Updated 02/03/23 @ 17:03 by Temo Armas MD) Gross hematuria (Acute) Acute renal failure (Acute) Obesity (Chronic) Lipoma of neck (Acute) Pes anserinus bursitis of both knees (Acute) Degenerative joint disease of right hip (Acute) Degenerative joint disease of left hip (Chronic) Diabetic neuropathy (Acute) bilateral feet - at night Globus sensation (Acute) Lump in throat (Acute) Gas bloat syndrome (Acute) HNP (herniated nucleus pulposus), lumbar (Acute) COVID-19 (Acute) Low back pain (Acute) Impacted cerumen, right ear (Acute) SOB (shortness of breath) (Acute) Type 2 diabetes mellitus with diabetic neuropathy, unspecified (Acute) Diabetes mellitus (Acute) Failure of rotator cuff repair (Acute) Osteoarthritis of left knee (Acute) Fibula fracture (Acute) Left Hypogonadism (Acute) Neck pain, musculoskeletal (Acute) Shoulder pain, acute (Acute) Hyperplastic colon polyp (Acute) Elevated blood pressure reading (Acute) Tubular adenoma (Acute) 01/24/15 History of tobacco use (Acute) History of esophagogastroduodenoscopy (Acute) Fatigue (Acute) better w/ T replacement recheck levels Right knee DJD (Chronic) Synvisc injection: 09/18/2018 Ingrown toenail of right foot (Acute) advised to not cut nails too short Screening for colon cancer (Acute) MARCUS (dyspnea on exertion) (Acute) Peripheral edema (Acute) likely dependency due to morbid obesity Screening for colorectal cancer (Chronic) Benign prostatic hyperplasia (Chronic) 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 Essential hypertension (Acute) cough on SARAH-I Gastroesophageal reflux disease (Acute) small hiatal hernia EGD 03/2004 Hearing loss (Acute) bilateral Hyperlipidemia (Acute 07/10/12) intolerant to statins and Zetia Increased body mass index (Acute) Lactose intolerance (Chronic) possible Malignant melanoma of skin of lower limb (Acute 05/23/13) [facility] [place]; T3ANO STAGE 2A Obstructive sleep apnea (adult) (pediatric) (Acute) SEVERE with good response to CPAP Onychomycosis (Acute) Peyronie's disease (Acute) Low testosterone (Chronic) Hypertension (Chronic) Medical History Gout Surgical History History of AAA (abdominal aortic aneurysm) repair 10/28/2021 [facility] [place] History of repair of right rotator cuff (02/2009) History of repair of left rotator cuff (04/2005) History of total right knee replacement (TKR) (02/27/19) History of hernia repair Status post arthroscopy of right knee Partial medial and lateral meniscectomies DOS: 04/06/18 Repeat surgery: 06/02/2018 Rotator Cuff Repair (~2005) left and right EGD - MAC (04/15/04) Colonoscopy - MAC (04/15/04) Rare tics, no polyps;Small HH & fundic gland polyp COLONOSCOPY W/MAC (01/24/15) DR. ULICES EVANS Family History Mother , 78 Arthritis Father , 82 Alzheimer disease Sister No problems noted. Sister No problems noted. Brother No problems noted. Brother No problems noted. Maternal Grandfather , 83 No problems noted. Paternal Grandfather , 80 No problems noted. Maternal Grandmother , 74 No problems noted. Paternal Grandmother , 80 No problems noted. Son No problems noted. Daughter Epilepsy Social History Smoking/Tobacco Use Status: Former Tobacco Use tobacco type: cigarettes Quit Date: 03/21/07 Tobacco: How many years used: 10 Second Hand Exposure: Yes Smoking risk assessment performed?: Yes Alcohol Intake: current Alcohol Intake frequency: a few times a week Alcohol type: beer Drug use: Never Substance use type: marijuana Counseling given: No Details: alcohol:t-3, one beer THC gummy at night to sleep Caregiver/Support person: No Household members: spouse Housing: house Communication Needs: Hard of Hearing Do you need help understanding health information?: Often Pets and animals: No Sexually active: Yes Do you think of yourself as: straight/heterosexual Current gender identity: male What is your relationship status?: How often do you talk on the phone with friends or family?: three or more times per week How often do you get together with friends or relatives?: once per week How often do you attend buddhist or scientologist services?: decline to answer Do you belong to any clubs or organized social groups?: no Panel score (0-1 are the most socially isolated patients): 2 Mariely/Sabianism: None Special mariely needs: No Seatbelt use: sometimes Drive intox or ride w/intox independent driver: No Do you feel safe at home: Yes Do you feel safe in your relationship?: Yes Meds Allergies and Home Medications Allergies Allergy/AdvReac Type Severity Reaction Status Date / Time shrimp Allergy Severe tongue Verified 01/18/23 09:14 swelling spironolactone AdvReac Intermediate fatigue Verified 01/18/23 09:14 SARAH Inhibitors AdvReac Unknown wiped out Verified 01/18/23 09:14 amlodipine AdvReac Swelling/Ed Verified 01/18/23 09:14 robles ezetimibe AdvReac myalgias, Verified 01/18/23 09:14 wiped out hydrocodone AdvReac Hallucinati Verified 01/18/23 09:14 ons lisinopril AdvReac cough Verified 01/18/23 09:14 losartan AdvReac fatigue Verified 01/18/23 09:14 oxycodone AdvReac Depression Verified 01/18/23 09:14 clams SOB ER Allergy Severe SOB ER Uncoded 01/18/23 09:14 red yeast rice AdvReac Intermediate wiped out Uncoded 01/18/23 09:14 Home Medications Medication Instructions Recorded Confirmed Type C-Pap 07/31/12 01/18/23 History Inhaler, Assist Devices #1 unit 02/02/17 10/18/18 Clinic [Aerochamber Mini] acetaminophen 500 mg tablet 1,000 mg (2 x 500 mg) PO Q8H PRN 02/27/19 01/18/23 Rx pain #90 tabs amitriptyline 10 mg tablet 10 mg PO QHS #90 tabs 06/17/22 01/18/23 Rx metformin 500 mg tablet,extended 1,000 mg (2 x 500 mg) PO BID #360 06/17/22 01/18/23 Rx release 24 hr tabs metoprolol succinate 25 mg 25 mg PO DAILY #90 tabs 06/17/22 01/18/23 Rx tablet,extended release 24 hr epinephrine 0.3 mg/0.3 mL 0.3 mg (0.3 mL) IJ PRN #1 mL 08/25/22 01/18/23 Rx injection, auto-injector (EpiPen 2-Rahul) doxazosin 8 mg tablet 8 mg PO QHS #90 tabs 01/18/23 Rx furosemide 20 mg tablet 20 mg PO DAILY #30 tabs 02/02/23 Rx Exam Narrative Exam Narrative: He appears comfortable His vital signs are documented elsewhere His chest wall motion is normal. He is not short of breath at rest. Cardiac exam shows a regular rate and rhythm His abdomen is obese but soft with no guarding or rebound tenderness He is awake and alert. Results Labs 02/03/23 12:25 02/03/23 12:25 Labs: Laboratory Results - last 24 hr 02/03/23 02/03/23 12:25 14:10 WBC 6.68 RBC 3.75 L Hgb 12.0 L Hct 35.2 L MCV 94 MCH 32.0 MCHC 34.1 RDW 13.2 Plt Count 242 MPV 9.9 Immature Gran % 0.6 Neutrophils % 65.9 Lymphocytes % 22.9 Monocytes % 7.3 Eosinophils % 2.7 Basophils % 0.6 Nucleated RBC % 0.0 Absolute Neutrophils 4.40 Absolute Lymphocytes 1.53 Absolute Monocytes 0.49 Absolute Eosinophils 0.18 Absolute Basophils 0.04 Sodium 141 Potassium 4.1 Chloride 105 Carbon Dioxide 23.7 Anion Gap 12.3 H BUN 43 H Creatinine 2.4 H Est GFR (CKD-EPI 2020) 28.32 Glucose 175 H Calcium 9.1 Total Bilirubin 0.6 AST 16 ALT 25 Alkaline Phosphatase 77 Total Protein 6.9 Albumin 4.0 COVID-19 Source Nasal/Nares Patient ABO/Rh O Positive Antibody Screen NEGATIVE Last Vital Signs Temp 36.7 C 02/03/23 11:58 Pulse 95 H 02/03/23 11:58 Resp 18 02/03/23 11:58 BP 185/78 H 02/03/23 11:58 Pulse Ox 99 02/03/23 12:04 Insert Bladder Catheter Text: The patient was seen the [facility] unit. His indwelling catheter balloon was deflated and the catheter was removed. His genitalia was prepped with Betadine. 2% Xylocaine jelly was instilled into the urethra to act as a local anesthetic. A 24 Occitan hematuria catheter was passed through the urethra into the bladder. The catheter balloon was inflated with 10 cc of sterile water. The catheter was then hand irrigated with 1500 cc of saline and multiple clots were evacuated. The catheter was then hooked to gravity drainage and continuous bladder irrigation was maintained. He tolerated this procedure well Time Spent Time spent with Patient: 40-54 minutes Time was spent: preparing to see the patient(eg.review tests), obtaining and/or reviewing separately otained hiistory, ordering medications,tests, procedures, referring, communicating with other health career based intervention coordinator, indepentently interpreting results, counseling the patient and care coordination
[2023-02-03 15:17] LABS: COVID-19 PCR Negative (Negative)
[2023-02-03] MEDS: metFORMIN C.R. 500 MG TABCR 1000 MG PO (18:58)
[2023-02-03] MEDS: Melatonin 3 MG TAB 6 MG PO (21:16)
[2023-02-03] MEDS: Amitriptyline 10 MG TAB PO (21:16)
[2023-02-03] MEDS: Doxazosin 2 MG TAB 8 MG PO (21:16)
--- NOTE | 2023-02-04 07:26 | W.PM.DS.N ---
Date of service: 02/04/23 Time of Service: 07:26 DS: Diagnosis Discharge Diagnosis (1) Gross hematuria: Status: Acute Discharge Plan Disposition Patient Disposition: Home Condition: Stable Discharge Details Reason For Visit: clot retention Admit Date/Time: 02/03/23 14:41 Admit Provider: Temo Armas Attending Provider: Temo Armas Primary Care Provider: Nigel Emerson Hospital Course Hospital Course: The patient was seen in the urgency department for gross hematuria. His labs were stable. He CT showed a mass within the bladder. He was admitted for continuous bladder irrigation. I was able to hand irrigate out multiple clots from the bladder. The irrigant and hand irrigation became clear. His bladder irrigation was discontinued and his catheter was removed. He will be discharged to home later today once he voids. If he is unable to void he will go home with an indwelling catheter hooked to a leg bag. Home Meds and New Rx's Prescriptions: No Action amitriptyline 10 mg tablet 10 mg PO QHS Qty: 90 3RF metformin 500 mg tablet extended release 24 hr 1,000 mg PO BID Qty: 360 3RF metoprolol succinate 25 mg tablet extended release 24 hr 25 mg PO DAILY Qty: 90 3RF Rx Instructions: dose increase 03/17/22 dose decrease 06/17/22 (tired) C-PAP Rx Instructions: [facility] [place], sleep apnea (DME) Inhaler, Assist Devices [Aerochamber Mini] 1 EACH spacer 1 ea Miscellaneous DAILY Qty: 1 0RF epinephrine [EpiPen 2-Rahul] 0.3 mg/0.3 mL auto-injector 0.3 mg IJ PRN Qty: 1 0RF doxazosin 8 mg tablet 8 mg PO QHS Qty: 90 3RF furosemide 20 mg tablet 20 mg PO DAILY Qty: 30 2RF acetaminophen 500 mg tablet 1,000 mg PO Q8H PRN (Reason: pain) Qty: 90 3RF Discharge Instructions Additional Instructions: There will be no new purse options for this gentleman He will follow-up in my office for an office cystoscopy to complete his hematuria work-up Activity:: Activity as Tolerated Equipment/Supplies:: No Equipment Needed Diet:: As Tolerated Discharge Orders Discharge Orders: Discharge Order (Routine); Ordered 02/04/23 Ordered By: Temo Armas DS: Summary Time Spent with Patient providing and/or coordinating discharge services: Less than 30 minutes Status at Discharge Functional status at discharge: independent ambulation Overall status at discharge: patient is back to baseline Mental Status: mental status grossly normal Speech and Movement: speech and movement normal Mood: congruent mood Affect: normal affect Exam Narrative Exam Narrative: On the morning of disc charge, he appears comfortable His vital signs are documented elsewhere His chest wall motion is normal. He is not short of breath at rest. His abdomen is obese but soft with no mass His continuous bladder irrigation is clear at a very slow rate. And irrigation of the bladder allowed for aspiration of multiple small blood clots He is awake and alert Psych Mental Status: mental status grossly normal Speech and Movement: speech and movement normal Mood: congruent mood Affect: normal affect DS: Data Vitals/I&O Vitals and I&O: Vital Signs Temperature 36.5 C 02/03/23 22:56 Temperature Source Tympanic 02/03/23 22:56 Pulse 73 02/03/23 22:56 Pulse Rhythm Regular 02/03/23 22:54 Respiratory Rate 18 02/03/23 22:56 Respiratory Effort Normal, Non-Labored 02/03/23 22:54 Respiratory Depth Normal 02/03/23 22:54 Respiratory Pattern Normal 02/03/23 22:54 Blood Pressure 145/81 H 02/03/23 22:56 Blood Pressure Mean 71 02/03/23 15:32 Blood Pressure Position Sitting 02/03/23 11:58 Pulse Oximetry 95 02/03/23 22:56 Oxygen Delivery Method Cpap 02/03/23 22:56 Oxygen Flow Rate 0 02/03/23 22:56 Pain Level 0 02/03/23 22:56 Intake & Output 02/03/23 02/03/23 02/04/23 11:59 23:59 11:59 Intake Total 240 / 240 Output Total 3860 / 3860 Balance 240 / 240 -3860 / -3860 Weight 131.542 kg 131.5 kg Intake: Oral 240 / 240 Output: Urine 3860 / 3860 Other: Urine Color Chaves Yellow Urine Appearance Hematuria Clear Clots Comment CBI Voiding Methods Indwelling Catheter Data Completed and Pending Labs on day of discharge: Labs from last 24 hours 02/03/23 02/03/23 14:10 12:25 WBC 6.68 RBC 3.75 L Hgb 12.0 L Hct 35.2 L MCV 94 MCH 32.0 MCHC 34.1 RDW 13.2 Plt Count 242 MPV 9.9 Immature Gran % 0.6 Neutrophils % 65.9 Lymphocytes % 22.9 Monocytes % 7.3 Eosinophils % 2.7 Basophils % 0.6 Nucleated RBC % 0.0 Absolute Neutrophils 4.40 Absolute Lymphocytes 1.53 Absolute Monocytes 0.49 Absolute Eosinophils 0.18 Absolute Basophils 0.04 Sodium 141 Potassium 4.1 Chloride 105 Carbon Dioxide 23.7 Anion Gap 12.3 H BUN 43 H Creatinine 2.4 H Est GFR (CKD-EPI 2020) 28.32 Glucose 175 H Calcium 9.1 Total Bilirubin 0.6 AST 16 ALT 25 Alkaline Phosphatase 77 Total Protein 6.9 Albumin 4.0 COVID-19 Source Nasal/Nares SARS-CoV-2 (PCR) Negative Patient ABO/Rh O Positive Antibody Screen NEGATIVE 02/03/23 16:35 Urine - Cath Sauceda Indwelling Urine Culture - Pending Preliminary micro results at discharge 02/03/23 16:35 Urine Culture - Pending Urine - Cath Sauceda Indwelling [facility] All Active Problems Gross hematuria (Acute) Acute renal failure (Acute) Obesity (Chronic) Lipoma of neck (Acute) Pes anserinus bursitis of both knees (Acute) Degenerative joint disease of right hip (Acute) Degenerative joint disease of left hip (Chronic) Diabetic neuropathy (Acute) bilateral feet - at night Globus sensation (Acute) Lump in throat (Acute) Gas bloat syndrome (Acute) HNP (herniated nucleus pulposus), lumbar (Acute) COVID-19 (Acute) Low back pain (Acute) Impacted cerumen, right ear (Acute) SOB (shortness of breath) (Acute) Type 2 diabetes mellitus with diabetic neuropathy, unspecified (Acute) Diabetes mellitus (Acute) Failure of rotator cuff repair (Acute) Osteoarthritis of left knee (Acute) Fibula fracture (Acute) Left Hypogonadism (Acute) Neck pain, musculoskeletal (Acute) Shoulder pain, acute (Acute) Hyperplastic colon polyp (Acute) Elevated blood pressure reading (Acute) Tubular adenoma (Acute) 01/24/15 History of tobacco use (Acute) History of esophagogastroduodenoscopy (Acute) Fatigue (Acute) better w/ T replacement recheck levels Right knee DJD (Chronic) Synvisc injection: 09/18/2018 Ingrown toenail of right foot (Acute) advised to not cut nails too short Screening for colon cancer (Acute) MARCUS (dyspnea on exertion) (Acute) Peripheral edema (Acute) likely dependency due to morbid obesity Screening for colorectal cancer (Chronic) Benign prostatic hyperplasia (Chronic) 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 Essential hypertension (Acute) cough on SARAH-I Gastroesophageal reflux disease (Acute) small hiatal hernia EGD 03/2004 Hearing loss (Acute) bilateral Hyperlipidemia (Acute 07/10/12) intolerant to statins and Zetia Increased body mass index (Acute) Lactose intolerance (Chronic) possible Malignant melanoma of skin of lower limb (Acute 05/23/13) [facility] [place]; LEFT LEG; T3ANO STAGE 2A Obstructive sleep apnea (adult) (pediatric) (Acute) SEVERE with good response to CPAP Onychomycosis (Acute) Peyronie's disease (Acute) Low testosterone (Chronic) Hypertension (Chronic) Medical History Gout Surgical History History of AAA (abdominal aortic aneurysm) repair 10/28/2021 [facility] [place] History of repair of right rotator cuff (02/2009) History of repair of left rotator cuff (04/2005) History of total right knee replacement (TKR) (02/27/19) History of hernia repair Status post arthroscopy of right knee Partial medial and lateral meniscectomies DOS: 04/06/18 Repeat surgery: 06/02/2018 Rotator Cuff Repair (~2005) left and right EGD - MAC (04/15/04) Colonoscopy - MAC (04/15/04) Rare tics, no polyps;Small HH & fundic gland polyp COLONOSCOPY W/MAC (01/24/15) DR. ULICES EVANS Family History Mother , 78 Arthritis Father , 82 Alzheimer disease Sister No problems noted. Sister No problems noted. Brother No problems noted. Brother No problems noted. Maternal Grandfather , 83 No problems noted. Paternal Grandfather , 80 No problems noted. Maternal Grandmother , 74 No problems noted. Paternal Grandmother , 80 No problems noted. Son No problems noted. Daughter Epilepsy Social History Smoking/Tobacco Use Status: Former Tobacco Use tobacco type: cigarettes Quit Date: 03/21/07 Tobacco: How many years used: 10 Second Hand Exposure: Yes Smoking risk assessment performed?: Yes Alcohol Intake: current Alcohol Intake frequency: a few times a week Alcohol type: beer Drug use: Never Substance use type: marijuana Counseling given: No Details: alcohol:t-3, one beer THC gummy at night to sleep Caregiver/Support person: No Household members: spouse Housing: house Communication Needs: Hard of Hearing Do you need help understanding health information?: Often Pets and animals: No Sexually active: Yes Do you think of yourself as: straight/heterosexual Current gender identity: male What is your relationship status?: How often do you talk on the phone with friends or family?: three or more times per week How often do you get together with friends or relatives?: once per week How often do you attend episcopal or hinduism services?: decline to answer Do you belong to any clubs or organized social groups?: no Panel score (0-1 are the most socially isolated patients): 2 Mariely/Restoration: None Special mariely needs: No Seatbelt use: sometimes Drive intox or ride w/intox crude oil driver: No Do you feel safe at home: Yes Do you feel safe in your relationship?: Yes Time Spent with Patient Time Spent with Patient: <45 minutes Time was spent: counseling the patient and other
--- NOTE | 2023-02-04 07:31 | W.PM.PROGNOT ---
Date of Service Date of service: 02/04/23 Time of Service: 07:31 Assessment and Plan Assessment and plan (1) Gross hematuria: Status: Acute Assessment and plan: I went ahead and remove moved his indwelling catheter. I encouraged him to drink plenty of fluid. Once we have certain that he is able to void, we will plan on discharging him to home. He will still need a cystoscopy to evaluate the cause of his hematuria. I prefer to do so after his bladder has had a chance to heal from any inflammation caused by the indwelling catheters. We can do the cystoscopy in my office. Subjective Subjective Interval history since last seen: The patient had known new issues overnight. He required hand irrigation of the catheter occasionally. He had no fever or chills Exam Narrative Exam Narrative: He appears comfortable I hand irrigated his catheter this morning and obtained a few small old clots. There is no evidence of active bleeding. He is awake and alert Objective Last Vital Signs Temp 36.5 C 02/03/23 22:56 Pulse 73 02/03/23 22:56 Resp 18 02/03/23 22:56 BP 145/81 H 02/03/23 22:56 Pulse Ox 95 02/03/23 22:56 Laboratory Results - last 24 hr 02/03/23 02/03/23 12:25 14:10 WBC 6.68 RBC 3.75 L Hgb 12.0 L Hct 35.2 L MCV 94 MCH 32.0 MCHC 34.1 RDW 13.2 Plt Count 242 MPV 9.9 Immature Gran % 0.6 Neutrophils % 65.9 Lymphocytes % 22.9 Monocytes % 7.3 Eosinophils % 2.7 Basophils % 0.6 Nucleated RBC % 0.0 Absolute Neutrophils 4.40 Absolute Lymphocytes 1.53 Absolute Monocytes 0.49 Absolute Eosinophils 0.18 Absolute Basophils 0.04 Sodium 141 Potassium 4.1 Chloride 105 Carbon Dioxide 23.7 Anion Gap 12.3 H BUN 43 H Creatinine 2.4 H Est GFR (CKD-EPI 2020) 28.32 Glucose 175 H Calcium 9.1 Total Bilirubin 0.6 AST 16 ALT 25 Alkaline Phosphatase 77 Total Protein 6.9 Albumin 4.0 COVID-19 Source Nasal/Nares SARS-CoV-2 (PCR) Negative Patient ABO/Rh O Positive Antibody Screen NEGATIVE Time Spent with Patient Time Spent with Patient: <25 minutes Time was spent: other
[2023-02-04 08:05] VITALS: BP 156/76; PULSE 72; RESP 18; TEMP 36.2; O2SAT 97
[2023-02-04] MEDS: Finasteride 5 MG TAB PO (08:31)
[2023-02-04] MEDS: metFORMIN C.R. 500 MG TABCR 1000 MG PO (08:31)
[2023-02-04] MEDS: Furosemide 20 MG TAB PO (08:31)
[2023-02-04] MEDS: Metoprolol CR 25 MG TABCR PO (08:32)
== END 2023-02-04 09:57 | disposition home or self-care (01) ==
LOC: ER 15:30 → MS 02-04 07:18
PROVIDERS: Admitting Provider Urology; Emergency Provider Physician Assistant; PCP Family Medicine; Visit Provider Urology
DX: R31.0 Gross hematuria (principal); N17.9 Acute kidney failure, unspecified; N40.0 Benign prostatic hyperplasia without lower urinary tract symptoms; E66.9 Obesity, unspecified; M16.0 Bilateral primary osteoarthritis of hip; E11.42 Type 2 diabetes mellitus with diabetic polyneuropathy; M51.26 Other intervertebral disc displacement, lumbar region; R60.0 Localized edema; I10 Essential (primary) hypertension; K21.9 Gastro-esophageal reflux disease without esophagitis; E78.5 Hyperlipidemia, unspecified; G47.33 Obstructive sleep apnea (adult) (pediatric); Z96.651 Presence of right artificial knee joint; Z87.442 Personal history of urinary calculi
CPT/HCPCS: 51702; 80053; 86850; 86900; 86901; 87635; 96360; 99222; 99238; 99285; 74176; 85025; 87086; G0378

== ENCOUNTER 2023-03-22 02:44 | Outpatient (CLI) | payer MEDICARE, SELFPAY ==
[2023-03-22 08:41] LABS: Abs Immature Grans 0.04 10^3/uL (0.0-0.06); Absolute Basophil Count 0.05 10^3/uL (0.0-0.2); Absolute Eosinophil Count 0.17 10^3/uL (0.0-0.7); Absolute Lymphocyte Count 1.54 10^3/uL (1.2-3.4); Absolute Monocyte Count 0.53 10^3/uL (0.1-0.8); Absolute Neutrophil Count 4.25 10^3/uL (1.2-6.7); Basophils % 0.8; Eosinophils % 2.6; HCT 40.3 % (40.0-50.0); HGB 13.4 g/dL (13.5-17.5); Immature Grans % 0.6; Lymphocytes % 23.4; MCH 31.8 pg (27.0-33.0); MCHC 33.3 % (32.0-36.0); MCV 96 fL (80-95); MPV 9.8 fL (8.0-11.0); Monocytes % 8.1; Neutrophils % 64.5; Platelet Count 243 10^3/uL (130-400); RBC 4.22 10^6/uL (4.36-5.78); RDW 13.4 % (11.8-14.1); RDW-SD 47.4 fL; WBC 6.58 10^3/uL (4.4-10.8)
[2023-03-22 09:01] LABS: Bilirubin Negative (Negative); Blood Trace-intact (Negative); Clarity Clear (Clear); Glucose Negative (Negative); Ketones Negative (Negative); Leukocyte Esterase Negative (Negative); Nitrite Negative (Negative); Specific Gravity 1.015 (1.005-1.025); Urobilinogen 0.2 mg/dL (Up to 0.2)
[2023-03-22 09:09] LABS: Albumin 4.2 g/dL (3.4-5.0); BUN 36 mg/dL (7-18); CREATININE 2.5 mg/dL (0.70-1.30); Calcium 8.9 mg/dL (8.5-10.1); Chloride 103 mmol/L (98-107); Estimated GFR 26.96 (mL/min/1.73m2); Glucose 168 mg/dL (74-106); PHOSPHORUS 2.8 mg/dL (2.6-4.7); Sodium 141 mmol/L (136-145)
[2023-03-22 09:33] LABS: Ferritin 228 ng/mL (26-388)
[2023-03-22 09:48] LABS: COMMENT (LAB VIEW ONLY) 38.35 mg/dL; PROTEIN 7.7 mg/dL
[2023-03-22 09:50] LABS: COMMENT (LAB VIEW ONLY) 37.17 mg/dL
[2023-03-22 09:52] LABS: Iron 110 ug/dL (65-175); Total Iron Binding Capacity 317 ug/dL (250-450); Transferrin Sat 35 % (20-55)
[2023-03-22 10:14] LABS: Vitamin D 25 Total 16.4 ng/mL (30-100)
[2023-03-22 21:54] LABS: Parathyroid Hormone,Intact 121 pg/mL (19-88)
[2023-03-23 14:54] LABS: Albumin, Urine % 21.5 %; Albumin, Urine mg/dL 2 mg/dL; Globulins, Urine % 78.5 %; Globulins, Urine mg/dL 9 mg/dL; Immunotyping, Urine (See Note); Total Protein Urine 11 mg/dL (See Note)
== END 2023-03-22 02:45 | disposition home or self-care (01) ==
LOC: LBO 02:44
PROVIDERS: PCP Family Medicine; Visit Provider Internal Medicine Nephrology
DX: E11.22 Type 2 diabetes mellitus with diabetic chronic kidney disease (principal); I10 Essential (primary) hypertension; N17.9 Acute kidney failure, unspecified; E87.70 Fluid overload, unspecified
CPT/HCPCS: 36415; 80048; 82306; 84156; 84166; 86335; 81003; 82040; 82043; 82565; 82570; 82728; 83540; 83550; 83970; 84100; 85025

== ENCOUNTER → 2023-03-25 00:42 | Outpatient (CLI) | payer MEDICARE, MEDICAID, SELFPAY ==
--- NOTE | 2023-03-25 06:45 | DI.US_ITS ---
APPROVED REPORT EXAM: Comprehensive 2D, Doppler, and color-flow Echocardiogram Patient Location: Out-Patient Traditional Chinese Herbalist: Eneida Blake RDCS Indications: SOB, dyspenea on exertion; peripheral edema, fluid overload. Other Information Study Quality: Technically Difficult Conclusion 1.Normal chamber sizes 2.Mild LVH with normal systolic and diastolic functions,EF 60-65%. No wall motion abnormality.Normal RV systolic function. 3.Anatomically normal valves,no significant regurgitation or stenosis. 4.No intracardiac shunt 5.No pericardial effusion. Wall motion Left Ventricle The left ventricle is normal size. The left ventricular systolic function is normal. The left ventric ular ejection fraction is within the normal range. Moderate concentric left ventricular hypertrophy. There is no evidence of LVOT obstruction. There is normal LV segmental wall motion. Left ventricular filling pattern is normal for age. There is no ventricular septal defect visualized. LVEF is 65%. Right Ventricle The right ventricle is normal size. The right ventricular systolic function is normal.Unable to asses s PA pressure. Atria The left atrium size is normal. The right atrium size is normal.There is a prominent robyn terminali s. The interatrial septum is intact with no evidence for an atrial septal defect. Aortic Valve Aortic valve is trileaflet. The aortic valve leaflets are mildly thickened. There is no aortic valvul ar stenosis. No aortic regurgitation is present. Mitral Valve The mitral valve is normal in structure. No evidence of mitral valve stenosis. There is no mitral levar ve regurgitation noted. Tricuspid Valve The tricuspid valve is normal in structure. There is no tricuspid valve stenosis. There is no tricusp id valve regurgitation noted. Unable to assess PA pressure. Pulmonic Valve The pulmonary valve is normal in structure. There is no pulmonic valvular stenosis. Trace pulmonic re gurgitation. Great Vessels The aortic root is normal in size. The pulmonary artery is normal. Ascending aorta is normal in calib er. Aortic arch is normal in caliber. IVC is normal in size and collapses >50% with inspiration. Pericardium There is a prominent pericardial fat pad. 2D Dimensions IVSD d PLAX 1.75 cm M: 0.6-1.2 Ao Root d 3.30 cm M: 3.1 - 3.7 LVPW d PLAX 1.69 cm M: 0.6 - 1.2 Ao Asc Diam d 3.39 cm M: 2.6 - 3.4 LVID d PLAX 3.92 cm M: 4.2 - 5.8 Prox Ao Arch 2.2 cm LVDs 2.69 cm M: 2.5 - 4.0 IVC Diam exp d SLAX 1.4 cm LV EF Teichholz 60.0 % FS 31.46 % LV EDV (Teich) 66.7 mL LV ESV (Teich) 26.7 mL M-Mode TAPSE 2.39 cm (M/F) >1.7 Auto EF LV EDV A4C 73.7 mL LV EDV A2C 83.2 mL LV EDV BP 78.9 mL LV ESV A4C 28.8 mL LV ESV A2C 34.6 mL LV ESV BP 32.1 mL LVEF(%) A4C 60.9 % LVEF(%) A2C 58.4 % LVEF(%) BP 59.4 % LV SV A4C 44.9 ml LV SV A2C 48.6 ml LV SV BP 46.8 ml LV CO A4C 2.8 L/min LV CO A2C 3.1 L/min LV CO BP 3.0 L/min HR A4C 63.27 BPM HR A2C 64.04 BPM LV EDV Index (BP) LV Volumes - Method of Disks (Arias's) Single Plane 2D LV Volumes Biplane 2D LV Volumes LV EDV A4C 72.5 mL LV EDV BP 70.68 mL M: 62 - 150 LV ESV A4C 15.7 mL LV ESV BP 17.0 mL LVEF(%) A4C 78.3 % LVEF(%) BP 76.02 % M: 52 - 72 LV EDV A2C 63.7 mL LV EDV BP Index 29.20 mL/m2 M: 34 - 74 LV ESV A2C 18.9 mL SV BP LVEF(%) A2C 70.3 % SV Index LV Strain Long Pk Overal Avg (s) 13.87 LA Volume LA Length A4C 5.8 cm LA Length A2C 4.7 cm LA Area A4C s 17.34 cm2 LA Area A2C s 12.87 cm2 LA Vol A4C A-L 43.82 mL LA Vol A2C A-L 30.11 mL LA Vol Biplane A-L 40.6 mL LA Vol/BSA A4C A-L LA Vol/BSA A2C A-L LA Vol/BSA BP A-L 16.8 mL/m2 LA Vol A4C MOD 42.0 mL LA Vol A2C MOD 29.3 mL LA Vol BP MOD 39.0 mL LV Diastology MV E' medial 0.067 (>0.07 m/s) MV E Vmax 0.63 (0.4-1.3 m/s) MV E/E' MED 9.42 (<14) MV A Vmax 0.75 (0.4-1.3 m/s) MV E' lateral 0.083 (>0.1 m/s) E/A Ratio 0.8 MV E/E' LAT 7.52 (<14) MV E' Average 0.075 m/s MV E/E'(average) 8.37 Aortic Valve LVOT Vmax 0.89 m/s LVOT Peak Grad 3.1 mmHg LVOT VTI 0.201 m LVOT Mean Grad 1.7 mmHg LVOT SV 74.26 mL LVOT Diam s 2.15 cm Mitral Valve MV DT 267 (160-240 msec) Pulm Vein s 0.47 m/s Pulm Vein d 0.43 m/s Pulm Vein a 0.36 m/s Pulmonary Valve PV Vmax 1.94 (0.5-1.5 m/s) RVOT Vmax 0.45 m/s PV Peak Grad 15.1 mmHg RVOT Peak Gr. 0.8 mmHg PV Mean Hood 1.31 m/s RVOT VTI 0.088 m PV Mean Grad 7.9 mmHg RVOT Mean Gr. 0.4 mmHg Tricuspid Valve RA Pressure 3.00 mmHg TV S' 0.13 m/s
== END ==
PROVIDERS: PCP Family Medicine; Visit Provider Family Medicine
DX: E87.70 Fluid overload, unspecified (principal); R06.09 Other forms of dyspnea
CPT/HCPCS: 93306

== ENCOUNTER → 2023-04-05 08:47 | Outpatient (BNVA) | payer MEDICARE, MEDICAID, SELFPAY | PROVIDERS: PCP Family Medicine; Referring Provider Family Medicine; Visit Provider Urology | DX: R31.0 Gross hematuria (principal) | CPT/HCPCS: 52000; 99214 ==

== ENCOUNTER → 2023-05-10 07:56 | Outpatient (BNVA) | payer MEDICARE, MEDICAID, SELFPAY | PROVIDERS: PCP Family Medicine; Referring Provider Family Medicine; Visit Provider Urology | DX: R31.0 Gross hematuria (principal) | CPT/HCPCS: 99213 ==

== ENCOUNTER 2023-05-26 15:51 | Outpatient (CLI) | payer MEDICARE, MEDICAID, SELFPAY ==
--- NOTE | 2023-05-26 14:30 | DI.RAD_ITS ---
Exam(s) XR ANKLE LT COMPLETE EXAM: XR ANKLE LT COMPLETE CLINICAL HISTORY: eval l ankle pain TECHNIQUE: 2D digital imaging was performed. Three views. COMPARISON: CR XR ANKLE LT COMPLETE from 06/17/2020 FINDINGS: BONES: Old distal fibular fracture has healed with minimal deformity. No acute fracture is present. No bony destructive lesion is seen. Small heel spurs. JOINTS:The ankle mortise is normally aligned. The joint space is maintained. Bony densities are not ed at the medial malleolus which are likely posttraumatic. There is spurring at the anterior aspect of the distal tibia. Degenerative changes also noted in the tarsal region. SOFT TISSUE: Normal. IMPRESSION: Degenerative changes, greatest of the tarsal region. DATA REPOSITORY: RADIATION DOSE DELIVERED:
--- NOTE | 2023-05-26 14:30 | DI.RAD_ITS ---
Exam(s) XR ANKLE RT COMPLETE EXAM: XR ANKLE RT COMPLETE CLINICAL HISTORY: eval R ankle pain. TECHNIQUE: 2D digital imaging was performed. Three views. COMPARISON: CR XR ANKLE LT COMPLETE from 07/10/2020 FINDINGS: BONES: No acute fracture is present. No bony destructive lesion is seen. Heel spurs. Spurring at the medial malleolus. JOINTS: The ankle mortise is normally aligned. The ankle joint space is maintained. Degenerative gordon nges seen within the mid foot on the lateral view. SOFT TISSUE: Vascular calcifications. IMPRESSION: Degenerative changes, greatest in the midfoot. DATA REPOSITORY: RADIATION DOSE DELIVERED:
== END 2023-05-26 15:52 | disposition home or self-care (01) ==
LOC: DIORS 15:51
PROVIDERS: PCP Family Medicine; Referring Provider Family Medicine; Visit Provider Student in an Organized Health Care Education/Training Program
DX: M19.071 Primary osteoarthritis, right ankle and foot; M19.072 Primary osteoarthritis, left ankle and foot; M16.12 Unilateral primary osteoarthritis, left hip
CPT/HCPCS: 20605; 73610; J1030

== ENCOUNTER → 2023-07-21 13:30 | Outpatient (BNVA) | payer MEDICARE, MEDICAID, SELFPAY | PROVIDERS: PCP Family Medicine; Referring Provider Family Medicine; Visit Provider Student in an Organized Health Care Education/Training Program | DX: M19.071 Primary osteoarthritis, right ankle and foot (principal); M19.072 Primary osteoarthritis, left ankle and foot; M21.41 Flat foot [pes planus] (acquired), right foot; M21.42 Flat foot [pes planus] (acquired), left foot | CPT/HCPCS: 99213 ==

== ENCOUNTER → 2023-11-08 07:59 | Outpatient (BNVA) | payer MEDICARE, MEDICAID, SELFPAY | PROVIDERS: PCP Family Medicine; Visit Provider Urology | DX: R31.0 Gross hematuria (principal) | CPT/HCPCS: 99213 ==

== ENCOUNTER 2023-11-10 03:02 | Outpatient (CLI) | payer MEDICARE, MEDICAID, SELFPAY ==
--- NOTE | 2023-11-10 | DI.MRI_ITS ---
Exam(s) MR LOWER JOINT LT WO EXAM: MR LOWER JOINT LT WO CLINICAL HISTORY: ARTHRITIS BOTH ANKLES, M19.071, M19.072, LT ANKLE PAIN TECHNIQUE: Multiplanar multisequence MRI was performed without intravenous contrast. COMPARISON: CR,XR XR FOOT RT COMPLETE from 01/01/2023 CR XR ANKLE LT COMPLETE from 05/26/2023 FINDINGS: BONES/JOINTS: No fracture or contusion pattern. Edema in the medial talus and medial malleolus with adjacent bony erosions. Degenerative changes at the tibial talar joint spurring. Joint space narrow ing. The talar dome is smooth. The ankle mortise is maintained. No joint effusion is present. Degenerative changes at the talonavicular and tarsal metatarsal joint with large cysts on both sides of the joint. Findings could represent a large degenerative cyst versus erosions related to inflamma tory arthritis. LIGAMENTS: The tibiofibular and calcaneofibular ligaments are intact. The talofibular ligaments are i ntact. The deltoid ligament is intact. The syndesmosis is unremarkable. Sinus tarsi is normal. MUSCULOTENDINOUS STRUCTURES: Achilles tendon: Unremarkable. Plantar fascia: Unremarkable. Anterior Extensor tendons: Unremarkable. Posterior Tibialis: Unremarkable. Flexor Digitorum longus: Unremarkable. Flexor Hallucis longus: Unremarkable. Peroneus longus: Unremarkable. Peroneus brevis:Unremarkable. SOFT TISSUES: Edema. IMPRESSION: No tendon abnormalities identified. Degenerative cysts at the medial tibiotalar joint, tarsal metatarsal joints and talonavicular joint. Findings could be degenerative versus related to inflammatory arthritis. DATA REPOSITORY:
--- NOTE | 2023-11-10 | DI.MRI_ITS ---
Exam(s) MR LOWER JOINT RT WO EXAM: MR LOWER JOINT RT WO CLINICAL HISTORY: ARTHRITIS BOTH ANKLES, M19.071, M19.072, RT ANKLE PAIN TECHNIQUE: Multiplanar multisequence MRI was performed without intravenous contrast. COMPARISON: CR XR ANKLE RT COMPLETE from 05/26/2023 MR MR LOWER JOINT LT WO from 11/10/2023 FINDINGS: Exam mildly limited by motion. BONES/JOINTS: No fracture or contusion pattern. No bone lesions identified. The talar dome is smooth. The ankle mortise is maintained. No joint effusion is present. Plantar calcaneal spur. Small cyst i n medial aspect of the talus near tibiotalar joint. Degenerative changes at the talonavicular joint. No significant cystic change. Degenerative changes at the tarsal metatarsal joints with multiple p rominent cyst. Findings could be secondary to degenerative changes versus inflammatory arthritis. LIGAMENTS: The tibiofibular and calcaneofibular ligaments are intact. The talofibular ligaments are i ntact. The deltoid ligament is intact. The syndesmosis is unremarkable. Sinus tarsi is normal. MUSCULOTENDINOUS STRUCTURES: Achilles tendon: Unremarkable. Plantar fascia: Unremarkable. Anterior Extensor tendons: Unremarkable. Posterior Tibialis: Unremarkable. Flexor Digitorum longus: Unremarkable. Flexor Hallucis longus: Unremarkable. Peroneus longus: Unremarkable. Peroneus brevis:Unremarkable. SOFT TISSUES: Mild edema IMPRESSION: Degenerative changes with multiple cysts at the tarsal metatarsal joints. Findings cause with second troy to inflammatory arthritis. Mild degenerative changes at medial tibiotalar joint and talonavicula r joints. DATA REPOSITORY:
== END 2023-11-10 03:22 ==
LOC: DI 03:02
PROVIDERS: PCP Family Medicine; Visit Provider Orthopaedic Surgery
DX: M19.071 Primary osteoarthritis, right ankle and foot (principal); M19.072 Primary osteoarthritis, left ankle and foot
CPT/HCPCS: 73721

== ENCOUNTER 2023-11-22 10:41 | Outpatient (CLI) | payer MEDICARE, MEDICAID, SELFPAY ==
[2023-11-22 12:40] LABS: Uric Acid 13.7 mg/dL (3.5-7.2)
[2023-11-22 17:44] LABS: Rheumatoid Factor <8.6 IU/mL (<12.0)
[2023-11-23 15:47] LABS: ANA Interpretation Negative (Negative)
== END 2023-11-22 10:42 | disposition home or self-care (01) ==
PROVIDERS: PCP Family Medicine; Referring Provider Family Medicine; Visit Provider Family Medicine
DX: M19.90 Unspecified osteoarthritis, unspecified site (principal); M10.9 Gout, unspecified; E11.9 Type 2 diabetes mellitus without complications; M79.671 Pain in right foot; M79.672 Pain in left foot; F43.21 Adjustment disorder with depressed mood; M19.071 Primary osteoarthritis, right ankle and foot; M19.072 Primary osteoarthritis, left ankle and foot
CPT/HCPCS: 36415; 84550; 86038; 86431

== ENCOUNTER 2024-02-14 11:23 | Outpatient (CLI) | payer MEDICARE, MEDICAID, SELFPAY ==
[2024-02-14 12:46] LABS: Creatine Kinase 90 U/L (39-308)
== END 2024-02-14 11:24 | disposition home or self-care (01) ==
LOC: LOS 11:23
PROVIDERS: PCP Family Medicine; Referring Provider Family Medicine; Visit Provider Family Medicine
DX: G72.89 Other specified myopathies (principal); E11.9 Type 2 diabetes mellitus without complications
CPT/HCPCS: 36415; 82550

== ENCOUNTER 2024-03-29 10:47 | Outpatient (CLI) | payer MEDICARE, MEDICAID, SELFPAY ==
[2024-03-29 11:30] LABS: Hemoglobin A1C 6.4 % (<5.7)
[2024-03-29 12:38] LABS: CREATININE 3.1 mg/dL (0.70-1.30)
[2024-03-29 13:17] LABS: Creatine Kinase 68 U/L (39-308)
== END 2024-03-29 10:48 | disposition home or self-care (01) ==
LOC: LBO 10:51
PROVIDERS: PCP Family Medicine; Visit Provider Family Medicine
DX: R73.9 Hyperglycemia, unspecified (principal); I10 Essential (primary) hypertension; G72.89 Other specified myopathies
CPT/HCPCS: 36415; 82550; 82565; 83036; 84132

== ENCOUNTER 2024-04-24 00:59 | Outpatient (CLI) | payer MEDICARE, MEDICAID, SELFPAY ==
[2024-04-24 08:45] LABS: Uric Acid 8.3 mg/dL (3.5-7.2)
[2024-04-24 17:38] LABS: PSA, Diagnostic 6.6 ng/mL (<=6.5)
== END 2024-04-24 01:00 | disposition home or self-care (01) ==
PROVIDERS: PCP Family Medicine; Visit Provider Urology
DX: N13.8 Other obstructive and reflux uropathy (principal); N40.1 Benign prostatic hyperplasia with lower urinary tract symptoms; M10.9 Gout, unspecified
CPT/HCPCS: 36415; 84153; 84550

== ENCOUNTER → 2024-05-01 07:52 | Outpatient (BNVA) | payer MEDICARE, MEDICAID, SELFPAY | PROVIDERS: PCP Family Medicine; Visit Provider Urology | DX: R31.0 Gross hematuria (principal) | CPT/HCPCS: 99214 ==

== ENCOUNTER 2024-10-04 20:14 | Outpatient (REF) | payer MEDICARE, SELFPAY ==
[2024-10-04 14:51] LABS: COMMENT (LAB VIEW ONLY) 64.49 mg/dL; Microalb ug/mg Crea 14.3 ug/mg Cr
== END 2024-10-04 20:15 | disposition home or self-care (01) ==
LOC: LBN 20:14
PROVIDERS: PCP Family Medicine; Visit Provider Family Medicine
DX: E11.9 Type 2 diabetes mellitus without complications (principal)
CPT/HCPCS: 82043; 82570

== ENCOUNTER → 2024-10-19 08:21 | Outpatient (BNVA) | payer MEDICARE, MEDICAID, SELFPAY | PROVIDERS: PCP Family Medicine; Visit Provider Urology | DX: N40.0 Benign prostatic hyperplasia without lower urinary tract symptoms (principal); R97.20 Elevated prostate specific antigen [PSA]; R53.83 Other fatigue; N18.9 Chronic kidney disease, unspecified | CPT/HCPCS: 99214 ==

== ENCOUNTER 2024-10-22 10:42 | Outpatient (CLI) | payer MEDICARE, SELFPAY ==
[2024-10-22 11:49] LABS: ALT 18 U/L (16-63); AST 10 U/L (15-37); Albumin 3.9 g/dL (3.4-5.0); Alkaline Phosphatase 94 U/L (46-116); Anion Gap 9.0 mmol/L (3-11); BUN 41 mg/dL (7-18); Bilirubin, Total 0.5 mg/dL (0.2-1.0); CO2 28.0 mmol/L (21.0-32.0); Calcium 8.8 mg/dL (8.5-10.1); Chloride 103 mmol/L (98-107); Estimated GFR 22.29 (mL/min/1.73m2); Glucose 241 mg/dL (74-106); Potassium 4.3 mmol/L (3.5-5.1); Sodium 140 mmol/L (136-145); TSH 1.68 uIU/mL (0.36-3.74); Total Protein 7.3 g/dL (6.4-8.2)
[2024-10-22 18:30] LABS: PSA, Diagnostic 9.0 ng/mL (<=6.5)
== END 2024-10-22 10:43 | disposition home or self-care (01) ==
LOC: LBO 10:43
PROVIDERS: PCP Family Medicine; Visit Provider Urology
DX: R97.20 Elevated prostate specific antigen [PSA] (principal); N40.0 Benign prostatic hyperplasia without lower urinary tract symptoms; N18.9 Chronic kidney disease, unspecified; R53.83 Other fatigue
CPT/HCPCS: 36415; 80053; 84403; 84153; 84443

== ENCOUNTER → 2025-03-18 14:54 | Outpatient (CLI) | payer MEDICARE, SELFPAY ==
--- NOTE | 2025-03-18 15:13 | DI.RAD_ITS ---
Exam(s) XR CHEST 2V PA LATERAL EXAM: XR CHEST 2V PA LATERAL CLINICAL HISTORY: cough r/o pneumonia, R05.9. TECHNIQUE: 2D digital imaging was performed. COMPARISON: CR,XR XR CHEST 2V PA LATERAL from 01/01/[address] ABDOMEN PELVIS WO from 02/03/2023 FINDINGS: 2 views: Heart size is normal. The mediastinum is not widened. Right lung is clear. Left hemidiaphragm is again noted be elevated and there is some infiltrate in the lower left lung field just above the elevated left hemidiaphragm. This appears unchanged from December 2022. There are no pleural effusions. No pulmonary edema. IMPRESSION: Increased markings in the left lower lobe just above the left hemidiaphragm which may represent infiltrate. However, findings appear unchanged from chest x-ray of December 2022. DATA REPOSITORY: RADIATION DOSE DELIVERED:
--- NOTE | 2025-03-18 15:14 | DI.RAD_ITS ---
Exam(s) XR WRIST RT COMPLETE EXAM: XR WRIST RT COMPLETE CLINICAL HISTORY: wrist and hand pain after fall, M25.531. TECHNIQUE: 2D digital imaging was performed. COMPARISON: No exams were available for comparison FINDINGS: 3 views No evidence acute fracture nor carpal dislocation nor significant ulnar variance. Scapholunate distance is normal. Some cortical irregularity on the lateral aspect of the distal scaphoid is noted but this does not have the appearance of an acute fracture. Small degenerative subarticular cysts are no gita in the proximal medial lunate. There is no impaction at this level. All of the hamate is intact. There are mild degenerative changes in the 1st carpometacarpal joint. Bone density normal. No osseous lesions. IMPRESSION: As above but no fractures in the carpal row bones. DATA REPOSITORY: RADIATION DOSE DELIVERED:
--- NOTE | 2025-03-18 15:14 | DI.RAD_ITS ---
Exam(s) XR HAND RT COMPLETE EXAM: XR HAND RT COMPLETE CLINICAL HISTORY: fall, injury r/o fx, R HAND PAIN, M79.641. TECHNIQUE: 2D digital imaging was performed. COMPARISON: No exams were available for comparison FINDINGS: 3 views No evidence of fracture or dislocation no abnormal soft tissue calcifications. No radiopaque foreign bodies. There are some degenerative changes in the DIP joints. No lesions nor erosions evident. IMPRESSION: No acute osseous findings. No fracture evident. DATA REPOSITORY: RADIATION DOSE DELIVERED:
== END ==
LOC: DI 14:54
PROVIDERS: PCP Family Medicine; Visit Provider Physician Assistant
DX: R05.9 Cough, unspecified (principal); M89.8X4 Other specified disorders of bone, hand; R91.8 Other nonspecific abnormal finding of lung field; M19.041 Primary osteoarthritis, right hand
CPT/HCPCS: 71046; 73110; 73130